=== PATIENT | female | born 1945 | race Caucasian/White ===

== ENCOUNTER → 2017-08-28 | Outpatient (CLI) | payer OTHER ==
[~2017-08-28] MED LIST: ASPI81TA28 PO; ATOR-22 PO; ATV/1 PO; CALC600T9 PO; ESCI1TAB10 PO; FOLI1TAB7 PO; HYDR-5688 PO; LISI-725 PO; PRED-301 PO; ZNTT/150 PO; ZOLP5TAB PO
[2017-08-28 18:08] LABS: ALT/SGPT 59 U/L (12-78); AST/SGOT 67 U/L (15-37); C-REACTIVE PROTEIN 1.35 mg/dl (0-0.29); CREATININE 0.81 mg/dl (0.60-1.20)
[2017-08-28 18:09] LABS: ALKALINE PHOSPHATASE 118 U/L (45-117)
[2017-08-28 19:31] LABS: HEMATOCRIT 36.2 % (37-47); MEAN CELL VOLUME 97.1 fL (80-100); MEAN CORPUSCULAR HEMOGLOBIN 32.2 pg (25-34); MEAN CORPUSCULAR HGB CONC 33.1 g/dl (32-36); RED BLOOD COUNT 3.73 M/uL (4.2-5.4); WHITE BLOOD COUNT 5.78 K/uL (4.8-10.8)
[2017-08-28 19:32] LABS: BASO % 0.7 %; BASO ABS # 0.04 K/uL (0-0.2); COMPLETE YES; EOS % 5.5 %; IG% 0.5 %; LYMPH ABS # 1.62 K/uL (1.2-3.4); MONO % 7.8 %; NEUT % 57.5 %
== END ==
LOC: C.LABMFLN 13:32
PROVIDERS: ATTEND Internal Medicine
DX: M05.79 Rheumatoid arthritis with rheumatoid factor of multiple sites without organ or systems involvement (principal)

== ENCOUNTER → 2018-03-06 | Outpatient (CLI) | payer OTHER ==
[~2018-03-06] MED LIST changes: -FOLI1TAB7 PO; +FOLI1TAB8 PO; +RANI150T85 PO; -ZNTT/150 PO
[2018-03-06 17:48] LABS: BASO % 0.3 %; BASO ABS # 0.02 K/uL (0-0.2); EOS % 0.8 %; EOS ABS # 0.05 K/uL (0-0.5); HEMOGLOBIN 11.5 g/dL (12.0-16.0); IG# 0.02 K/uL (0.00-0.02); LYMPH % 13.6 %; LYMPH ABS # 0.88 K/uL (1.2-3.4); MEAN CELL VOLUME 99.4 fL (80-100); MEAN CORPUSCULAR HEMOGLOBIN 33.6 pg (25-34); MEAN CORPUSCULAR HGB CONC 33.8 g/dl (32-36); MEAN PLATELET VOLUME 9.1 fL (7.4-10.4); MONO % 1.9 %; MONO ABS # 0.12 K/uL (0.11-0.59); NEUT % 83.1 %; NEUT ABS # 5.39 K/uL (1.4-6.5); PLATELET COUNT 213 K/uL (130-400); RED CELL DISTRIBUTION WIDTH CV 16.6 % (11.5-14.5); RED CELL DISTRIBUTION WIDTH SD 58.8 fL (36.4-46.3); WHITE BLOOD COUNT 6.48 K/uL (4.8-10.8)
== END | disposition home or self-care (01) ==
LOC: C.LABMFLN 15:54
PROVIDERS: ATTEND Family Medicine
DX: R51 Headache (principal)

== ENCOUNTER 2020-10-24 13:08 | Inpatient (IN) ==
--- NOTE | 2020-10-24 13:38 | Emergency Department Note ---
Impression & Plan COVID-19, AMS (altered mental status), Acute hypokalemia, Ambulatory dysfunction ED Provider Note NAME: JAMEY KIMBALL AGE: 74 SEX: F : 1945 ARRIVES VIA: Walk-In INFORMANT: Patient ED PROVIDER(S): Jak Johns DO CHIEF COMPLAINT: Confusion HPI: Patient is a 74-year-old female who tested positive for harding virus this past Saturday. She has had a cough as well as fevers. She does have a history of dementia but daughter brought her in notes that her confusion has been worse and she has been unable to ambulate without assistance for the past couple days. She denies any headaches or change in vision. No chest pain or shortness of breath. No belly pain. She denies any nausea, vomiting or diarrhea. No dysuria, urgency or frequency. No other exacerbating or remitting factors. ROS: See above HPI for pertinent positives & negatives. A total of 10 systems reviewed and were otherwise negative. PAST MEDICAL HISTORY:See Below PAST SURGICAL HISTORY:See Below FAMILY HISTORY:See Below SOCIAL HISTORY:See Below HOME MEDICATIONS:See Below ALLERGIES:See Below VITALS:See Below PHYSICAL EXAMINATION: GENERAL: Sitting up in bed, alert, well appearing, well nourished, no distress, non-toxic EYE EXAM: normal conjunctiva. PERRL and EOM's intact. OROPHARYNX: no exudate, no erythema, lips, buccal mucosa, and tongue normal and mucous membranes are moist NECK: supple, no nuchal rigidity, no adenopathy, non-tender LUNGS: Clear to auscultation. Normal chest wall mechanics HEART: no murmurs, S1 normal and S2 normal ABDOMEN: abdomen soft, non-tender, normo-active bowel sounds, no masses, no rebound or guarding. UPPER EXTREMITIES: upper extremities are grossly normal. LOWER EXTREMITIES: No pitting edema. NEURO EXAM: Oriented to person, place but not month or where she lives, cranial nerves II-XII intact, normal speech, no weakness of arms, no weakness of legs. No drift. Finger to nose intact. Gross sensation intact. MEDICAL DECISION MAKING: Patient is a 74-year-old female who presents the ER for confusion, trouble walking and Covid positive. IV was established blood work was obtained. She has had persistent fevers at home. He has been diagnosed with dementia but family notes that has been worse over the past couple days. Labs show a mild leukopenia 4.6 thousand. No significant anemia. BMP with mild hypokalemia at 2.6. She is given oral potassium. LFTs bilirubin and magnesium was unremarkable. Troponin was negative. Lipase unremarkable. UA without signs of infection. Chest x-ray is a likely pneumonitis. Patient was given IV fluids. Held on antibiotics as the pneumonitis was very mild and she was not hypoxic at this time. Will defer to the admission team. Patient and family including daughter and were updated via telephone. This with the hospitalist for further evaluation Triage Nursing notes reviewed. Prior medical records reviewed Vital Signs: reviewed and remarkable for hypertensive, overall and tachycardic Differential diagnosis: Differential diagnoses includes but is not limited to toxic, metabolic, infect ious, traumatic, cardiac, neurologic, hematologic, psychiatric and inflammatory etiologies. ER treatment provided: See below Diagnostics interpreted by me: ECG: Sinus tachycardia rate of 108 Left axis Right bundle branch block ST depressions in V1 through V3 QTC [address] wave changes from previous Cardiac Monitoring: An order was placed for continuous cardiac monitoring. The monitor shows a rate of 90 with sinus rhythm. Laboratory studies: As stated above and show below. Imaging studies: Portable AP upright 1 view of the chest as discussed above in the MDM with mild pneumonitis Consultation(s): D/w Dr. Abdirahman Robles for further evaluation ED COURSE: Procedures: none Critical Care: None Past Med/Surg History Medical History (Updated 10/24/20 @ 17:26 by Jak Johns DO) Acid reflux disease Balance problems Current chronic use of systemic steroids Degenerative cervical spinal stenosis Depression Gait abnormality Generalized anxiety disorder High risk medication use Hyperlipidemia Hypertension Insomnia Lumbar radiculopathy Osteoporosis Rheumatoid arthritis TMJ arthritis Surgical History H/O colonoscopy H/O esophagogastroduodenoscopy History of ankle surgery bilateral History of appendectomy History of tubal ligation Hx of cholecystectomy Hx of tonsillectomy Status post hip surgery March 2019-right Family History Father Diabetes Mother Stroke syndrome Uterine cancer Brother Malignant neoplasm of body of pancreas Malignant Pancreatic Neoplasm Colorectal cancer Sister Malignant neoplasm of body of pancreas Malignant Pancreatic Neoplasm Myocardial infarction Denies family history of Ovarian cancer Prostate cancer Breast cancer Social History Smoking Status: Never smoker Tobacco Type: Cigarettes Age Started Using Tobacco: 14; Age Quit Using Tobacco: 18; packs per day: 0.5; Second Hand Exposure: Yes; Hx Alcohol Use: No Hx Substance Use: Yes Preferred Language: [place] Communication Ability: Effective Visual Impairment: No Limitations Hearing Ability: Hard of Hearing Vacuum Filter Operator Required: No Beliefs That Will Affect Care: None marital status: Current Living Situation: Spouse current occupational status: retired 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 Feels Safe at Home: Yes Childhood Exposure to Second-Hand Smoke: Yes caffeine: Yes (tea) Dental Care, Regularly: Yes Physical Activity Frequency: 1-2 Times per Week Physical Activity Frequency Comment: gardening Seatbelt Use: never Sunscreen Use: No Do you think of yourself as: straight/heterosexual Allergies Allergies Allergy/AdvReac Type Severity Reaction Status Date / Time No Known Drug Allergies Allergy Verified 10/24/20 15:18 Home Meds Home Medications Medication Instructions Recorded Confirmed sulfasalazine 500 mg tablet 1 gm PO DAILY tab 07/21/20 10/24/20 methotrexate sodium 20 mg PO WK 10/24/20 10/24/20 Previous Rx's Medication Instructions Recorded aspirin 81 mg tablet,delayed 81 mg PO DAILY #30 tab 05/29/19 release folic acid 1 mg tablet 3 mg PO DAILY #90 tab 06/01/19 prednisone 5 mg tablet 5 mg PO DAILY #90 tab 06/09/19 calcium carbonate-vitamin D3 250 1 tab PO DAILY #30 tab 03/21/20 mg-125 unit tablet denosumab 60 mg/mL subcutaneous 60 mg SQ .COMPLEX #1 ml 03/21/20 syringe escitalopram oxalate 20 mg tablet 20 mg PO DAILY #90 tab 04/14/20 atorvastatin 20 mg tablet 20 mg PO DAILY #90 tab 07/04/20 gabapentin 100 mg capsule 100 mg PO TID #270 cap 07/04/20 omeprazole 20 mg capsule,delayed 20 mg PO DAILY #90 cap 07/04/20 release temazepam 15 mg capsule 15 mg PO HS PRN #30 cap 09/23/20 oxycodone 5 mg tablet 5 mg PO BID PRN #60 tab 10/03/20 amlodipine 5 mg tablet 5 mg PO DAILY #90 tab 10/12/20 lorazepam 0.5 mg tablet 0.5 mg PO BID PRN #60 tab 10/16/20 Results & Data (ED) Vital Signs Vital Signs - 24 hr 10/24/20 13:22 10/24/20 14:07 10/24/20 14:30 Temperature 37.6 C H Temperature Source Oral Pulse Rate 108 H 89 Pulse Rate [Apical] Respiratory Rate 24 22 Respiratory Effort / Characteristics Non-Labored Spontaneous Respiratory Depth Normal Respiratory Pattern Regular Blood Pressure 160/115 H 158/88 H Blood Pressure [Left Arm] Blood Pressure Mean 130 113 Blood Pressure Mean [Left Arm] Blood Pressure Position [Left Arm] Pulse Oximetry 95 96 96 Oxygen Delivery Method Room Air Room Air Sepsis Recent Fever Within 48 Hours Yes Sepsis New/Unexplained Change in Mental Status N/A Sepsis Action Taken by Nursing Physician Notified 10/24/20 15:00 10/24/20 15:36 10/24/20 16:13 Temperature 38.7 C H Temperature Source Oral Pulse Rate 86 88 Pulse Rate [Apical] 85 Respiratory Rate 20 18 21 Respiratory Effort / Characteristics Non-Labored Spontaneous Respiratory Depth Normal Respiratory Pattern Regular Blood Pressure 174/84 H 176/90 H Blood Pressure [Left Arm] 167/88 H Blood Pressure Mean 128 119 Blood Pressure Mean [Left Arm] 114 Blood Pressure Position [Left Arm] Sitting Pulse Oximetry 97 99 96 Oxygen Delivery Method Room Air Sepsis Recent Fever Within 48 Hours Sepsis New/Unexplained Change in Mental Status Sepsis Action Taken by Nursing 10/24/20 16:30 Temperature Temperature Source Pulse Rate 90 Pulse Rate [Apical] Respiratory Rate 20 Respiratory Effort / Characteristics Respiratory Depth Respiratory Pattern Blood Pressure 171/97 H Blood Pressure [Left Arm] Blood Pressure Mean 115 Blood Pressure Mean [Left Arm] Blood Pressure Position [Left Arm] Pulse Oximetry 94 Oxygen Delivery Method Sepsis Recent Fever Within 48 Hours Sepsis New/Unexplained Change in Mental Status Sepsis Action Taken by Nursing Laboratory Data Result diagrams: 10/24/20 13:45 10/24/20 13:45 Lab Results 10/24/20 10/24/20 10/24/20 Range/Units 13:45 13:45 13:45 WBC 4.66 L (4.8-10.8) K/uL RBC 3.70 L (4.2-5.4) M/uL Hgb 12.1 (12.0-16.0) g/dL Hct 36.2 L (37-47) % MCV 97.8 (80-100) fL MCH 32.7 (25-34) pg MCHC 33.4 (32-36) g/dL RDW Std Deviation 57.2 H (36.4-46.3) fL RDW Coeff of [place] 16.3 H (11.5-14.5) % Plt Count 153 (130-400) K/uL MPV 9.9 (7.4-10.4) fL Immature Gran % (Auto) 2.4 % Neut % (Auto) 59.7 % Lymph % (Auto) 25.3 % [place] % (Auto) 10.7 % Eos % (Auto) 1.3 % Baso % (Auto) 0.6 % Neut # (Auto) 2.78 (1.4-6.5) K/uL Lymph # (Auto) 1.18 L (1.2-3.4) K/uL [place] # (Auto) 0.50 (0.11-0.59) K/uL Eos # (Auto) 0.06 (0-0.5) K/uL Baso # (Auto) 0.03 (0-0.2) K/uL Immature Gran # (Auto) 0.11 H (0.00-0.02) K/uL Sodium 138 (136-145) mmol/L Potassium 2.6 L (3.5-5.1) mmol/L Chloride 105 (98-107) mmol/L Carbon Dioxide 25 (21-32) mmol/L Anion Gap 8.0 (3-11) BUN 18 (7-18) mg/dl Creatinine 0.89 (0.6-1.2) mg/dl Est Cr Clr Drug Dosing 50.3 ml/min Est GFR ( Amer) 73.0 Est GFR (Non-Af Amer) 63.0 BUN/Creatinine Ratio 19.7 (10-20) Glucose 100 H (70-99) mg/dl Calcium 9.2 (8.5-10.1) mg/dl Magnesium 1.8 (1.8-2.4) mg/dl Total Bilirubin 0.5 (0.2-1) mg/dl AST 30 (15-37) U/L ALT 20 (12-78) U/L Alkaline Phosphatase 97 (45-117) U/L Troponin I < 0.015 (0-0.045) ng/ml Total Protein 6.8 (6.4-8.2) gm/dl Albumin 3.3 L (3.4-5.0) gm/dl Globulin 3.5 (2.5-4.0) gm/dl Albumin/Globulin Ratio 1.0 (0.9-2) Lipase 73 (73-393) U/L Urine Color Urine Appearance (Clear) Urine pH (4.5-7.5) Ur Specific [place] (1.000-1.030) Urine Protein (Negative) Urine Glucose (UA) (Negative) Urine Ketones (Negative) Urine Blood (Negative) Urine Nitrite (Negative) Urine Bilirubin (Negative) Urine Urobilinogen (Negative) Ur Leukocyte Esterase (Negative) Urine WBC (Auto) (0-5) /hpf Urine RBC (Auto) (0-4) /hpf U Hyaline Cast (Auto) (0-5) /lpf U Epithel Cells (Auto) (0-5) /lpf Urine Bacteria (Auto) (Negative) 10/24/20 Range/Units 14:00 WBC (4.8-10.8) K/uL RBC (4.2-5.4) M/uL Hgb (12.0-16.0) g/dL Hct (37-47) % MCV (80-100) fL MCH (25-34) pg MCHC (32-36) g/dL RDW Std Deviation (36.4-46.3) fL RDW Coeff of [place] (11.5-14.5) % Plt Count (130-400) K/uL MPV (7.4-10.4) fL Immature Gran % (Auto) % Neut % (Auto) % Lymph % (Auto) % [place] % (Auto) % Eos % (Auto) % Baso % (Auto) % Neut # (Auto) (1.4-6.5) K/uL Lymph # (Auto) (1.2-3.4) K/uL [place] # (Auto) (0.11-0.59) K/uL Eos # (Auto) (0-0.5) K/uL Baso # (Auto) (0-0.2) K/uL Immature Gran # (Auto) (0.00-0.02) K/uL Sodium (136-145) mmol/L Potassium (3.5-5.1) mmol/L Chloride (98-107) mmol/L Carbon Dioxide (21-32) mmol/L Anion Gap (3-11) BUN (7-18) mg/dl Creatinine (0.6-1.2) mg/dl Est Cr Clr Drug Dosing ml/min Est GFR ( Amer) Est GFR (Non-Af Amer) BUN/Creatinine Ratio (10-20) Glucose (70-99) mg/dl Calcium (8.5-10.1) mg/dl Magnesium (1.8-2.4) mg/dl Total Bilirubin (0.2-1) mg/dl AST (15-37) U/L ALT (12-78) U/L Alkaline Phosphatase (45-117) U/L Troponin I (0-0.045) ng/ml Total Protein (6.4-8.2) gm/dl Albumin (3.4-5.0) gm/dl Globulin (2.5-4.0) gm/dl Albumin/Globulin Ratio (0.9-2) Lipase (73-393) U/L Urine Color Yellow Urine Appearance Clear (Clear) Urine pH 7.0 (4.5-7.5) Ur Specific [place] 1.021 (1.000-1.030) Urine Protein Trace H (Negative) Urine Glucose (UA) Negative (Negative) Urine Ketones Trace H (Negative) Urine Blood Trace H (Negative) Urine Nitrite Negative (Negative) Urine Bilirubin Negative (Negative) Urine Urobilinogen Positive H (Negative) Ur Leukocyte Esterase Negative (Negative) Urine WBC (Auto) 1-5 (0-5) /hpf Urine RBC (Auto) 5-10 H (0-4) /hpf U Hyaline Cast (Auto) 1-5 (0-5) /lpf U Epithel Cells (Auto) 10-20 H (0-5) /lpf Urine Bacteria (Auto) Negative (Negative) Administered Medications Discontinued Medications Sodium Chloride (Nss 1000ml) 1,000 mls @ 999 mls/hr IV .[id number] JEANIE Stop: 10/24/20 14:45 Last Infusion: 10/24/20 15:34 Dose: 0 mls/hr Documented by: [id number] Admin: 10/24/20 14:32 Dose: 999 mls/hr Documented by: [id number] Ibuprofen (Ibuprofen 200 Mg Tab) 400 mg PO NOW STA Stop: 10/24/20 15:45 Last Admin: 10/24/20 16:11 Dose: 400 mg Documented by: [id number] Potassium Chloride (Potassium Chloride 10 Meq Tabcr) 40 meq PO NOW STA Stop: 10/24/20 14:57 Last Admin: 10/24/20 15:34 Dose: 40 meq Documented by: [id number] Discharge Plan Visit Data Chief Complaint: Illness Stated Complaint: COVID ED Provider: Jak Johns Discharge Problem: COVID-19, AMS (altered mental status), Acute hypokalemia, Ambulatory dysfunction Forms Stand Alone Forms: [facility] [place] [employer] Prescriptions Prescriptions: No Action aspirin 81 mg tablet,delayed release (DR/EC) 81 mg PO DAILY Qty: 30 RF: 2 prednisone 5 mg tablet 5 mg PO DAILY Qty: 90 RF: 0 denosumab 60 mg/mL syringe 60 mg SQ .COMPLEX Qty: 1 RF: 0 calcium carbonate-vitamin D3 250-125 mg-unit tablet 1 tab PO DAILY Qty: 30 RF: 0 escitalopram oxalate 20 mg tablet 20 mg PO DAILY Qty: 90 RF: 3 atorvastatin 20 mg tablet 20 mg PO DAILY Qty: 90 RF: 3 gabapentin 100 mg capsule 100 mg PO TID Qty: 270 RF: 1 omeprazole 20 mg capsule,delayed release(DR/EC) 20 mg PO DAILY Qty: 90 RF: 3 temazepam [Restoril] 15 mg capsule 15 mg PO HS PRN (Reason: sleep) Qty: 30 RF: 0 oxycodone 5 mg tablet 5 mg PO BID PRN (Reason: pain) Qty: 60 RF: 0 amlodipine 5 mg tablet 5 mg PO DAILY Qty: 90 RF: 3 lorazepam 0.5 mg tablet 0.5 mg PO BID PRN (Reason: anxiety) Qty: 60 RF: 0 sulfasalazine [Azulfidine] 500 mg tablet 1 gm PO DAILY RF: 0 folic acid 1 mg tablet 3 mg PO DAILY Qty: 90 RF: 3 methotrexate sodium 2.5 mg tablet 20 mg PO WK RF: 0 Discharge Problem: AMS (altered mental status) Qualifiers: Altered mental status type: unspecified Qualified Code(s): R41.82 - Altered mental status, unspecified
[2020-10-24] MEDS ORDERED: SODIUM CHLORIDE 0.9% 1000ML 1,000 ML IV SCH (13:45)
--- NOTE | 2020-10-24 14:09 | XRay Report ---
XR chest 1V portable HISTORY: 74 years-old Female sob acute shortness of breath COMPARISON: Chest radiograph 04/30/2016 TECHNIQUE: Portable AP view of the chest FINDINGS: Cardiomediastinal and hilar silhouettes are within normal limits. Subtle ill-defined bibasilar opacit ies. No pneumothorax, pleural effusion or overt pulmonary edema. Mild background interstitial coarsen ing. Unchanged moderate hemidiaphragmatic elevation. Degenerative changes of the shoulders and spine. Partially imaged cervical spinal fusion hardware. Cholecystectomy clips. IMPRESSION: Subtle ill-defined bibasilar opacities are suspicious for a nonspecific infectious or inf lammatory pneumonitis. ACT 112: Negative or not required by law. The above report was generated using voice recognition software. It may contain grammatical, syntax o r spelling errors. Electronically signed by: Clay Cleary M.D. 10/24/2020 2:07 PM
[2020-10-24 14:10] LABS: Basophils # (auto) 0.03 K/uL (0-0.2); Basophils % (auto) 0.6 %; Eosinophils # (auto) 0.06 K/uL (0-0.5); Eosinophils % (auto) 1.3 %; Hematocrit (blood only) 36.2 % (37-47); Hemoglobin 12.1 g/dL (12.0-16.0); Immature Granulocytes # (auto) 0.11 K/uL (0.00-0.02); Immature Granulocytes % (auto) 2.4 %; Lymphocytes # (auto) 1.18 K/uL (1.2-3.4); Lymphocytes % (auto) 25.3 %; Mean Corpuscular Hemoglobin 32.7 pg (25-34); Mean Corpuscular Hgb Conc 33.4 g/dL (32-36); Mean Corpuscular Volume 97.8 fL (80-100); Mean Platelet Volume 9.9 fL (7.4-10.4); Monocytes % (auto) 10.7 %; Neutrophils # (auto) 2.78 K/uL (1.4-6.5); Neutrophils % (auto) 59.7 %; Platelet Count 153 K/uL (130-400); RDW Coefficient of Variation 16.3 % (11.5-14.5); RDW Standard Deviation 57.2 fL (36.4-46.3); White Blood Count 4.66 K/uL (4.8-10.8)
[2020-10-24 14:26] LABS: Alanine Aminotransferase 20 U/L (12-78); Albumin Level 3.3 gm/dl (3.4-5.0); Aspartate Aminotransferase 30 U/L (15-37); BUN Creatinine Ratio 19.7 (10-20); Blood Urea Nitrogen 18 mg/dl (7-18); Calcium 9.2 mg/dl (8.5-10.1); Carbon Dioxide 25 mmol/L (21-32); Chloride 105 mmol/L (98-107); Creatinine Clr Calc Pharmacy 50.3 ml/min; Glucose 100 mg/dl (70-99); Lipase 73 U/L (73-393); Potassium 2.6 mmol/L (3.5-5.1); Sodium 138 mmol/L (136-145)
[2020-10-24 14:30] LABS: Alkaline Phosphatase 97 U/L (45-117); Bilirubin,Total 0.5 mg/dl (0.2-1); Globulin 3.5 gm/dl (2.5-4.0); Total Protein 6.8 gm/dl (6.4-8.2); Troponin I < 0.015 ng/ml (0-0.045)
[2020-10-24 14:32] LABS: Appearance Urine Clear (Clear); Bacteria Urine Automated Negative (Negative); Bilirubin Urine Negative (Negative); Blood Urine Trace (Negative); Color Urine Yellow; Glucose Urine UA Negative (Negative); Ketones Urine Trace (Negative); Leukocyte Esterase Urine Negative (Negative); Nitrite Urine Negative (Negative); Protein Urine Trace (Negative); Specific Gravity Urine 1.021 (1.000-1.030); Urobilinogen Urine Positive (Negative)
[2020-10-24] MEDS ORDERED: POTASSIUM CHLORIDE 10 MEQ TABCR PO STA (14:56)
[2020-10-24] MEDS ORDERED: IBUPROFEN 200 MG TAB PO STA (15:44)
--- NOTE | 2020-10-24 15:56 | History & Physical Report ---
Date of Service October 24, 2020 Assessment & Plan (1) Pneumonia due to COVID-19 virus: Diagnosed in the outpatient setting on 10/18/20. Had been ill for about 1 week prior to that. Fortunately she is not hypoxic at this time. Will defer on remdesivir or convalescent plasma. Is on chronic prednisone for RA. In light of steroid dependency and physical stress of illness she is deserving, however, of stress-dose steroids. Thus, hold PO prednisone and give IV dexamethasone 6mg daily to start. Check d-dimer in am. No evidence of complicating bacterial process. Check procalcitonin now. Supportive care, IVF, etc. (2) Metabolic encephalopathy: 2nd to COVID-19 infection in setting of what sounds like a chronic dementia/cognitive impairment at baseline. Is also on multiple sedatives/benzos that could contribute to confusion (restoril, ativan, etc). HOLD benzos. HOLD oxycodone. Risperdal 0.5mg q8h prn severe agitation/delirium. (3) Hypokalemia: Replace IV and PO. Check mag level. BMP in am. Likely 2nd to poor oral intake and recent diarrhea from COVID-19. (4) Hyperlipidemia: Continue statin. (5) Hypertension: Continue amlodipine. (6) Rheumatoid arthritis: Steroid-dependent -- prednisone 5mg/day. Also on Mtx 20mg qweek and sulfasalazine 1000mg daily. Hold Mtx. Cont sulfasalazine. Stress-dose steroids w/ decadron in carmela of prednisone. (7) Current chronic use of systemic steroids: see above (8) Right arm fracture: Patient with recent surgery/ORIF at [facility]. Surgery date uncertain. Will attempt to get records. Daughter reports that "sutures" need to be removed soon. Again the arm is in a splint. Obtain records from [facility]. (9) DVT prophylaxis: in light of COVID status and increased risk of VTE will utilize lovenox 30mg BID will need PT/OT IVF - NS with KCL History of Present Illness Primary Care Provider: Whitney Cardona MD The HPI was gathered via phone with daughter Doreen as patient was quite confused during the bedside visit and could provide limited history or ROS. 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 She was brought to hospital today via EMS for worsening confusion and increased difficulty ambulating at home in the setting of COVID-19 infection. Per daughter the patient was having difficulty placing feet in appropriate position for ambulating this morning. Patient was diagnosed with COVID-19 on October 18 after having symptoms for about 1 week prior. Patient has been having increased periods of confusion, difficulty speaking (answering only yes to all questions and phrases), and abnormal behavior at night (taking clothes off and unaware of surroundings). Patient recently had an MRI done at [facility] which reportedly showed early "dementia" per the daughter. The patient was also treated at [facility] for repair and plating of her right arm fracture after suffering a fall at home. The patient was to go back to have sutures removed this week, but did not go secondary to COVID. Daughter also has noted the patient has been increasingly incontinent of urine and has also increased toileting at night. During my bedside visit patient complains of cough, headache, poor appetite, and simply feeling unwell. She could not tell me what holiday we had just celebrated (Thanksgiving), could not name the month or day, and wasn't sure where we were. ("that place" she stated). Doreen's cell phone: . Allergies Allergy/AdvReac Type Severity Reaction Status Date / Time No Known Drug Allergies Allergy Verified 10/24/20 15:18 Home Medications Medication Instructions Recorded Confirmed Type aspirin 81 mg tablet,delayed 81 mg PO DAILY #30 tab 05/29/19 10/24/20 Rx release folic acid 1 mg tablet 3 mg PO DAILY #90 tab 06/01/19 10/24/20 Rx prednisone 5 mg tablet 5 mg PO DAILY #90 tab 06/09/19 10/24/20 Rx calcium carbonate-vitamin D3 250 1 tab PO DAILY #30 tab 03/21/20 10/24/20 Rx mg-125 unit tablet denosumab 60 mg/mL subcutaneous 60 mg SQ .COMPLEX #1 ml 03/21/20 10/24/20 Rx syringe escitalopram oxalate 20 mg tablet 20 mg PO DAILY #90 tab 04/14/20 10/24/20 Rx atorvastatin 20 mg tablet 20 mg PO DAILY #90 tab 07/04/20 10/24/20 Rx gabapentin 100 mg capsule 100 mg PO TID #270 cap 07/04/20 10/24/20 Rx omeprazole 20 mg capsule,delayed 20 mg PO DAILY #90 cap 07/04/20 10/24/20 Rx release sulfasalazine 500 mg tablet 1 gm PO DAILY tab 07/21/20 10/24/20 History temazepam 15 mg capsule 15 mg PO HS PRN #30 cap 09/23/20 10/24/20 Rx oxycodone 5 mg tablet 5 mg PO BID PRN #60 tab 10/03/20 10/24/20 Rx amlodipine 5 mg tablet 5 mg PO DAILY #90 tab 10/12/20 10/24/20 Rx lorazepam 0.5 mg tablet 0.5 mg PO BID PRN #60 tab 10/16/20 10/24/20 Rx methotrexate sodium 20 mg PO WK 10/24/20 10/24/20 History Past Med/Surg History Medical History (Updated 10/25/20 @ 05:38 by Abdirahman Layne) Acid reflux disease Balance problems Current chronic use of systemic steroids Degenerative cervical spinal stenosis Dementia Depression Gait abnormality Generalized anxiety disorder High risk medication use Hyperlipidemia Hypertension Insomnia Lumbar radiculopathy Osteoporosis Rheumatoid arthritis TMJ arthritis Surgical History H/O colonoscopy H/O esophagogastroduodenoscopy History of ankle surgery bilateral History of appendectomy History of tubal ligation Hx of cholecystectomy Hx of tonsillectomy Status post hip surgery March 2019-right Family History Father Diabetes Mother Stroke syndrome Uterine cancer Brother Malignant neoplasm of body of pancreas Malignant Pancreatic Neoplasm Colorectal cancer Sister Malignant neoplasm of body of pancreas Malignant Pancreatic Neoplasm Myocardial infarction Denies family history of Ovarian cancer Prostate cancer Breast cancer Social History Smoking Status: Former smoker Tobacco Type: Cigarettes Age Started Using Tobacco: 14; Age Quit Using Tobacco: 18; packs per day: 0.5; Second Hand Exposure: No; Do You Dip or Chew Tobacco: No; Tobacco Cessation Education Requested by Patient: No Hx Alcohol Use: No Hx Substance Use: No Preferred Language: Kyrgyz Communication Ability: Effective Visual Impairment: No Limitations Hearing Ability: Hard of Hearing Director Trust Required: No Beliefs That Will Affect Care: None marital status: Current Living Situation: Spouse current occupational status: retired 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 Other Information That Helps Us Care for You: No Feels Safe at Home: Yes Safety Concerns: Feels Safe At This Time Childhood Exposure to Second-Hand Smoke: Yes caffeine: Yes (tea) Dental Care, Regularly: Yes Physical Activity Frequency: 1-2 Times per Week Physical Activity Frequency Comment: gardening Seatbelt Use: never Sunscreen Use: No Do you think of yourself as: straight/heterosexual Assistive Devices: Denture - Upper and Glasses Review of Systems Review of Systems: Unobtainable due to cognitive status Physical Exam Constitutional: + ill appearing, + altered mental status and + frail appeari ng; no acute distress Eyes: PERRL ENMT: Mouth: + dry oral mucous membranes Neck: trachea midline, no thyromegaly Respiratory: Auscultation: + crackles (Right base, about 1/[address] back; minimal left base) Cardiovascular: Rate/Rhythm: regular rate and regular rhythm Heart Sounds: normal S1 and normal S2; no murmur Vessels: posterior tibial pulses present and dorsalis pedis pulses present; no JVD Extremities: no edema Musculoskeletal: right hand/wrist/forearm in splint; cap refill right fingers <2 seconds; handgrip 5/5 on right Skin: no rashes, warm and dry Neurologic: moves all extremities; no focal motor deficits Psychiatric: Orientation: alert and oriented to person; + not oriented to place and + not oriented to time Lymphatic: no cervical lymphadenopathy Results & Data Results & Data ([facility]) Vital Signs (Past 12 Hours) Vital Signs Temp Pulse Pulse Resp BP BP Pulse Ox 10/24/20 15:36 38.7 C H 85 18 167/88 H 99 10/24/20 15:00 86 20 174/84 H 97 10/24/20 14:30 89 22 158/88 H 96 10/24/20 14:07 96 10/24/20 13:22 37.6 C H 108 H 24 160/115 H 95 Laboratory Results Laboratory Results - last 24 hr 10/24/20 10/24/20 10/24/20 13:45 13:45 13:45 WBC 4.66 L RBC 3.70 L Hgb 12.1 Hct 36.2 L MCV 97.8 MCH 32.7 MCHC 33.4 RDW Std Deviation 57.2 H RDW Coeff of [place] 16.3 H Plt Count 153 MPV 9.9 Immature Gran % (Auto) 2.4 Neut % (Auto) 59.7 Lymph % (Auto) 25.3 [place] % (Auto) 10.7 Eos % (Auto) 1.3 Baso % (Auto) 0.6 Neut # (Auto) 2.78 Lymph # (Auto) 1.18 L [place] # (Auto) 0.50 Eos # (Auto) 0.06 Baso # (Auto) 0.03 Immature Gran # (Auto) 0.11 H Sodium 138 Potassium 2.6 L Chloride 105 Carbon Dioxide 25 Anion Gap 8.0 BUN 18 Creatinine 0.89 Est Cr Clr Drug Dosing 50.3 Est GFR ( Amer) 73.0 Est GFR (Non-Af Amer) 63.0 BUN/Creatinine Ratio 19.7 Glucose 100 H Calcium 9.2 Magnesium 1.8 Total Bilirubin 0.5 AST 30 ALT 20 Alkaline Phosphatase 97 Total Creatine Kinase Troponin I < 0.015 Total Protein 6.8 Albumin 3.3 L Globulin 3.5 Albumin/Globulin Ratio 1.0 Lipase 73 Procalcitonin Urine Color Urine Appearance Urine pH Ur Specific [place] Urine Protein Urine Glucose (UA) Urine Ketones Urine Blood Urine Nitrite Urine Bilirubin Urine Urobilinogen Ur Leukocyte Esterase Urine WBC (Auto) Urine RBC (Auto) U Hyaline Cast (Auto) U Epithel Cells (Auto) Urine Bacteria (Auto) 10/24/20 10/24/20 10/24/20 13:45 14:00 20:09 WBC RBC Hgb Hct MCV MCH MCHC RDW Std Deviation RDW Coeff of [place] Plt Count MPV Immature Gran % (Auto) Neut % (Auto) Lymph % (Auto) [place] % (Auto) Eos % (Auto) Baso % (Auto) Neut # (Auto) Lymph # (Auto) [place] # (Auto) Eos # (Auto) Baso # (Auto) Immature Gran # (Auto) Sodium Potassium Chloride Carbon Dioxide Anion Gap BUN Creatinine Est Cr Clr Drug Dosing Est GFR ( Amer) Est GFR (Non-Af Amer) BUN/Creatinine Ratio Glucose Calcium Magnesium Total Bilirubin AST ALT Alkaline Phosphatase Total Creatine Kinase 54 Troponin I Total Protein Albumin Globulin Albumin/Globulin Ratio Lipase Procalcitonin < 0.05 Urine Color Yellow Urine Appearance Clear Urine pH 7.0 Ur Specific [place] 1.021 Urine Protein Trace H Urine Glucose (UA) Negative Urine Ketones Trace H Urine Blood Trace H Urine Nitrite Negative Urine Bilirubin Negative Urine Urobilinogen Positive H Ur Leukocyte Esterase Negative Urine WBC (Auto) 1-5 Urine RBC (Auto) 5-10 H U Hyaline Cast (Auto) 1-5 U Epithel Cells (Auto) 10-20 H Urine Bacteria (Auto) Negative Diagnostic Findings 1. cxr: IMPRESSION: Subtle ill-defined bibasilar opacities are suspicious for a nonspecific infectious or inflammatory pneumonitis. 2. EKG: sinus tach, RBBB, nonspecific ST changes anteroseptal leads Code Status & VTE Plan Code Status full code, per pt's daughter VTE Prophylaxis Plan VTE Prophylaxis will be ordered: Yes PG Care Time/CCT Total # of Minutes Spent Total Time Spent with Patient: Total time spent is greater than 50% in coordination of care (as documented) at patient's floor/unit and/or counseling patient: Coding Level of Care Code 84357 Initial Inpt Care Lvl 2 Diagnoses Pneumonia due to COVID-19 virus U07.1; J12.89 Metabolic encephalopathy G93.41 Hypokalemia E87.6 Hyperlipidemia E78.2 Hyperlipidemia type: mixed hyperlipidemia Hypertension I10 Hypertension type: essential hypertension Rheumatoid arthritis M06.9 Rheumatoid arthritis location: unspecified site Rheumatoid factor presence: unspecified presence Current chronic use of systemic steroids Z79.52 Right arm fracture S42.301D Encounter type: subsequent encounter Fracture type: closed Fracture healing: with routine healing DVT prophylaxis Z29.9 (1) Rheumatoid arthritis Rheumatoid arthritis location: unspecified site Rheumatoid factor presence: unspecified presence Qualified Code(s): M06.9 - Rheumatoid arthritis, unspecified (2) Hyperlipidemia Hyperlipidemia type: mixed hyperlipidemia Qualified Code(s): E78.2 - Mixed hyperlipidemia (3) Hypertension Hypertension type: essential hypertension Qualified Code(s): I10 - Essential (primary) hypertension (4) Right arm fracture Encounter type: subsequent encounter Fracture type: closed Fracture healing: with routine healing Qualified Code(s): S42.301D - Unspecified fracture of shaft of humerus, right arm, subsequent encounter for fracture with routine healing
--- NOTE | 2020-10-24 16:27 | Electrocardiogram Report ---
Test Reason : Blood Pressure : / mmHG Vent. Rate : 108 BPM Atrial Rate : 108 BPM P-R Int : 178 ms QRS Dur : 126 ms QT Int : 368 ms P-R-T Axes : 003 -32 018 degrees QTc Int : 493 ms Sinus tachycardia Left axis deviation Right bundle branch block Abnormal ECG When compared with ECG of 30-APR-2016 14:40, Vent. rate has increased BY 45 BPM Non-specific change in ST segment in Anterior leads T wave inversion now evident in Anterior leads Confirmed by Armando Moreno ([id number]) on 10/24/2020 4:27:16 PM Referred By: Whitney Cardona Confirmed By:Jeff Moreno
[2020-10-24] MEDS: POTASSIUM CHLORIDE / WTR 10 MEQ/100 ML PLCT IV SCH ×2 (17:57→19:30)
[2020-10-24] MEDS ORDERED: ONDANSETRON INJ 2 MG/ML 2 ML VIAL IV PRN (20:33)
[2020-10-24] MEDS ORDERED: risperiDONE ODT 0.5 MG SOLTAB PO PRN (20:33)
[2020-10-24] MEDS ORDERED: ACETAMINOPHEN 325 MG TAB PO PRN (20:33)
[2020-10-24] MEDS: dexAMETHasone 6 MG in SYRINGE 0 ML IV SCH (21:50)
[2020-10-24] MEDS: ENOXAPARIN INJ 30 MG/0.3 ML SYR SQ SCH (21:50)
[2020-10-24] MEDS: NSS + 20MEQ KCL 20 MEQ/1,000 ML BAG IV SCH (21:50)
[2020-10-24] MEDS: GABAPENTIN 100 MG CAP PO SCH (21:51)
[2020-10-25] MEDS ORDERED: MELATONIN 3 MG TAB PO SCH (01:05)
[2020-10-25 07:11] LABS: Hematocrit (blood only) 32.4 % (37-47); Hemoglobin 10.8 g/dL (12.0-16.0); Mean Corpuscular Hemoglobin 32.5 pg (25-34); Mean Corpuscular Hgb Conc 33.3 g/dL (32-36); Mean Corpuscular Volume 97.6 fL (80-100); Mean Platelet Volume 9.6 fL (7.4-10.4); Platelet Count 146 K/uL (130-400); RDW Coefficient of Variation 16.3 % (11.5-14.5); RDW Standard Deviation 57.7 fL (36.4-46.3); Red Blood Count 3.32 M/uL (4.2-5.4)
[2020-10-25 07:14] LABS: D Dimer 660 ug/L FEU (0-500)
[2020-10-25 07:54] LABS: BUN Creatinine Ratio 24.8 (10-20); Calcium 8.5 mg/dl (8.5-10.1); Creatinine Clr Calc Pharmacy 84.5 ml/min; Est GFR (African American) 106.9; Est GFR (Non-African American) 92.2; Potassium 3.9 mmol/L (3.5-5.1)
[2020-10-25] MEDS: dexAMETHasone 6 MG in SYRINGE 0 ML IV SCH (07:57)
[2020-10-25] MEDS: GABAPENTIN 100 MG CAP PO SCH ×2 (07:59→12:26)
[2020-10-25] MEDS: ENOXAPARIN INJ 30 MG/0.3 ML SYR SQ SCH (08:07)
--- NOTE | 2020-10-25 08:33 | Hospitalist Progress Note ---
Date of Service October 25, 2020 Assessment & Plan (1) Pneumonia due to COVID-19 virus: Diagnosed in the outpatient setting on 10/18/20, ill for about 1 week prior to that. remains without hypoxia, does not qualify for remdesivir or convalescent plasma. Is on chronic prednisone for RA. will have decadron 6 mg elevated d-dimer may be inflammation not VTE No evidence of complicating bacterial process. normal procalcitonin. (2) Metabolic encephalopathy: 2nd to COVID-19 infection in setting of what sounds like a chronic dementia/cognitive impairment at baseline. an outpt takes multiple sedatives/benzos that could contribute to confusion will hold/stop restoril, ativan, oxycodone. continue Risperdal 0.5mg q8h prn severe agitation/delirium. (3) Hypokalemia: Replete Likely 2nd to poor oral intake and recent diarrhea from COVID-19. (4) Hyperlipidemia: Continue statin. (5) Hypertension: Continue amlodipine. (6) Rheumatoid arthritis: Steroid-dependent -- prednisone 5mg/day now on Decadron Also on Mtx 20mg qweek and sulfasalazine 1000mg daily. Hold Mtx. Cont sulfasalazine. Stress-dose steroids w/ decadron in carmela of prednisone. (7) Current chronic use of systemic steroids: see above (8) Right arm fracture: Patient with recent surgery/ORIF at [facility]. Surgery date uncertain. Will attempt to get records. Daughter reports that "sutures" need to be removed soon. Again the arm is in a splint. Obtain records from [facility]. (9) DVT prophylaxis: in light of COVID status and increased risk of VTE will utilize lovenox 30mg BID will need PT/OT IVF - NS with KCL Admission and Anticipated Discharge Date Admission Date: October 24, 2020 Results & Data Results & Data ([facility]) Vital Signs (Past 12 Hours) Vital Signs Temp Pulse Pulse Pulse Resp BP Pulse Ox 10/25/20 08:09 98.2 F 62 18 177/84 H 10/25/20 04:00 97.7 F 71 19 158/93 H 94 10/25/20 00:00 98.8 F 78 18 144/86 H 96 10/24/20 22:37 75 10/24/20 20:34 98.4 F 72 155/82 H 96 PG Care Time/CCT Total # of Minutes Spent Total Time Spent with Patient: Total time spent is greater than 50% in coordination of care (as documented) at patient's floor/unit and/or counseling patient: Coding Diagnoses Pneumonia due to COVID-19 virus U07.1; J12.89 Metabolic encephalopathy G93.41 Hypokalemia E87.6 Hyperlipidemia E78.2 Hyperlipidemia type: mixed hyperlipidemia Hypertension I10 Hypertension type: essential hypertension Rheumatoid arthritis M06.9 Rheumatoid arthritis location: unspecified site Rheumatoid factor presence: unspecified presence Current chronic use of systemic steroids Z79.52 Right arm fracture S42.301D Encounter type: subsequent encounter Fracture healing: with routine healing Fracture type: closed DVT prophylaxis Z29.9 (1) Rheumatoid arthritis Rheumatoid arthritis location: unspecified site Rheumatoid factor presence: unspecified presence Qualified Code(s): M06.9 - Rheumatoid arthritis, unspecified (2) Hyperlipidemia Hyperlipidemia type: mixed hyperlipidemia Qualified Code(s): E78.2 - Mixed hyperlipidemia (3) Right arm fracture Encounter type: subsequent encounter Fracture healing: with routine healing Fracture type: closed Qualified Code(s): S42.301D - Unspecified fracture of shaft of humerus, right arm, subsequent encounter for fracture with routine healing (4) Hypertension Hypertension type: essential hypertension Qualified Code(s): I10 - Essential (primary) hypertension
[2020-10-25] MEDS ORDERED: ATORVASTATIN 20 MG TAB PO SCH (09:00)
[2020-10-25] MEDS ORDERED: FOLIC ACID 1 MG TAB PO SCH (09:00)
[2020-10-25] MEDS ORDERED: CALCIUM 600MG + VIT D 400 IU TAB PO SCH (09:00)
[2020-10-25] MEDS ORDERED: PANTOprazole 40 MG TAB PO SCH (09:00)
[2020-10-25] MEDS ORDERED: ESCITALOPRAM OXALATE 20 MG TAB PO SCH (09:00)
[2020-10-25] MEDS ORDERED: ASPIRIN 81 MG ECTAB PO SCH (09:00)
[2020-10-25] MEDS ORDERED: sulfaSALAzine 500 MG TABLET PO SCH (09:00)
[2020-10-25] MEDS ORDERED: amLODIPine BESYLATE 5 MG TAB PO SCH (09:00)
[2020-10-25] MEDS: NSS + 20MEQ KCL 20 MEQ/1,000 ML BAG IV SCH (11:51)
--- NOTE | 2020-10-25 15:48 | Discharge Summary ---
Date of Service October 25, 2020 Admission HPI Per Admitting Provider The HPI was gathered via phone with daughter Doreen as patient was quite confused during the bedside visit and could provide limited history or ROS. 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 She was brought to hospital today via EMS for worsening confusion and increased difficulty ambulating at home in the setting of COVID-19 infection. Per daughter the patient was having difficulty placing feet in appropriate position for ambulating this morning. Robinson gonsalez was diagnosed with COVID-19 on October 18 after having symptoms for about 1 week prior. Patient has been having increased periods of confusion, difficulty speaking (answering only yes to all questions and phrases), and abnormal behavior at night (taking clothes off and unaware of surroundings). Patient recently had an MRI done at [facility] which reportedly showed early "dementia" per the daughter. The patient was also treated at [facility] for repair and plating of her right arm fracture after suffering a fall at home. The patient was to go back to have sutures removed this week, but did not go secondary to COVID. Daughter also has noted the patient has been increasingly incontinent of urine and has also increased toileting at night. During my bedside visit patient complains of cough, headache, poor appetite, and simply feeling unwell. She could not tell me what holiday we had just celebrated (Thanksgiving), could not name the month or day, and wasn't sure where we were. ("that place" she stated). Doreen's cell phone: . Principal Diagnosis metabolic encephalopathy associated with covid infection-> resolved Discharge Exam The patient appeared well Vital signs as documented. Lungs are clear to auscultation and appear unlabored Cardiac exam, Rhythm is regular.. No murmurs, rubs or gallops. Abdominal exam reveals normal bowel sounds, soft non tender, no masses Neurologic exam is alert and oriented Psychologically is without concerns for anxiety or depression. Discharge Data Allergies Allergy/AdvReac Type Severity Reaction Status Date / Time No Known Drug Allergies Allergy Verified 10/24/20 15:18 Consultations 10/24/20 15:25 ED Decision to Admit Stat Hospital Course (1) Pneumonia due to COVID-19 virus: Diagnosed in the outpatient setting on 10/18/20, ill for about 1 week prior to that. remains without hypoxia, does not qualify for remdesivir or convalescent plasma. Chest x-ray does not show significant changes Is on chronic prednisone for RA. will have decadron 6 mg elevated d-dimer may be inflammation not VTE, it is only modestly elevated at 660 normal is <500 No evidence of complicating bacterial process. normal procalcitonin. (2) Metabolic encephalopathy: 2nd to COVID-19 infection in setting of what sounds like a chronic dementia/cognitive impairment at baseline. an outpt takes multiple sedatives/benzos that could contribute to confusion will hold/stop restoril, ativan, oxycodone. continue Risperdal 0.5mg q8h prn severe agitation/delirium. (3) Hypokalemia: Replete Likely 2nd to poor oral intake and recent diarrhea from COVID-19. (4) Hyperlipidemia: Continue statin. (5) Hypertension: Continue amlodipine. (6) Rheumatoid arthritis: Steroid-dependent -- prednisone 5mg/day now on Decadron Also on Mtx 20mg qweek and sulfasalazine 1000mg daily. Hold Mtx. Cont sulfasalazine. Stress-dose steroids w/ decadron in carmela of prednisone. (7) Current chronic use of systemic steroids: see above (8) Right arm fracture: Patient with recent surgery/ORIF at [facility]. Surgery date uncertain. Will attempt to get records. Daughter reports that "sutures" need to be removed soon. Again the arm is in a splint. Obtain records from [facility]. Total Time Total Time Spent Total Time Spent (In Minutes): It required greater than 30 minutes to prepare this patient for discharge Discharge Plan Discharge Items Patient Disposition: Home - Self-Care Reason For Visit: HYPOKALEMIA,METABOLIC ENCEPHALOPATHY,COVID-19 Discharge Diagnosis: covid infection Activity: Per Instructions section Non-emergency contact: Primary Care Provider Call non-emergency contact if: you have any medication questions and your symptoms worsen Follow-up/Referrals: Whitney Cardona MD [Primary Care Provider] - 10/28/20 10:30 am (You have a telephone appointment with Dr Cardona on October 26 at 10:30. And on October 28 at 1030, you have another telephone appointment with Dr Cardona's associate, Dr Zamzam Stone.) Diet: Regular Addtl Attending Provider Instructions: restart your prednisone after dexamethasone is compelted please contact your orthopedic provider to get further instructions for follow up Home Isolation COVID-19 Instructions The following information about Home Isolation is from the CDC Website: https://www.cdc.gov/coronavirus/2019-ncov/hcp/ofafvjtk-bivxptq-zuisnx.html Stay home except to get medical care People who are mildly ill with COVID-19 are able to isolate at home during their illness. You should restrict activities outside your home, except for getting medical care. Do not go to work, school, or public areas. Avoid using public transportation, ride-sharing, or taxis. Separate yourself from other people and animals in your home People: As much as possible, you should stay in a specific room and away from other people in your home. Also, you should use a separate bathroom, if available. Animals: You should restrict contact with pets and other animals while you are sick with COVID-19, just like you would around other people. Although there have not been reports of pets or other animals becoming sick with COVID-19, it is still recommended that people sick with COVID-19 limit contact with animals until more information is known about the virus. When possible, have another member of your household care for your animals while you are sick. If you are sick with COVID-19, avoid contact with your pet, including petting, snuggling, being kissed or licked, and sharing food. If you must care for your pet or be around animals while you are sick, wash your hands before and after you interact with pets and wear a face mask. Call ahead before visiting your doctor If you have a medical appointment, call the healthcare provider and tell them that you have or may have COVID-19. This will help the healthcare providers office take steps to keep other people from getting infected or exposed. Wear a face mask You should wear a face mask when you are around other people (e.g., sharing a room or vehicle) or pets and before you enter a healthcare providers office. If you are not able to wear a face mask (for example, because it causes trouble breathing), then people who live with you should not stay in the same room with you, or they should wear a face mask if they enter your room. Cover your coughs and sneezes Cover your mouth and nose with a tissue when you cough or sneeze. Throw used tissues in a lined trash can. Immediately wash your hands with soap and water for at least 20 seconds or, if soap and water are not available, clean your hands with an alcohol-based hand assistant education director that contains at least 60% alcohol. Clean your hands often Wash your hands often with soap and water for at least 20 seconds, especially after blowing your nose, coughing, or sneezing; going to the bathroom; and before eating or preparing food. If soap and water are not readily available, use an alcohol-based hand assistant education director with at least 60% alcohol, covering all surfaces of your hands and rubbing them together until they feel dry. Soap and water are the best option if hands are visibly dirty. Avoid touching your eyes, nose, and mouth with unwashed hands. Avoid sharing personal household items You should not share dishes, drinking glasses, cups, eating utensils, towels, or bedding with other people or pets in your home. After using these items, they should be washed thoroughly with soap and water. Clean all high-touch surfaces everyday High touch surfaces include counters, tabletops, doorknobs, bathroom fixtures, toilets, phones, keyboards, tablets, and bedside tables. Also, clean any surfaces that may have blood, stool, or body fluids on them. Use a household cleaning spray or wipe, according to the label instructions. Labels contain instructions for safe and effective use of the cleaning product including precautions you should take when applying the product, such as wearing gloves and making sure you have good ventilation during use of the product. Monitor your symptoms Seek prompt medical attention if your illness is worsening (e.g., difficulty breathing).Beforeseeking care, call your healthcare provider and tell them that you have, or are being evaluated for, COVID-19. Put on a face mask before you enter the facility. These steps will help the healthcare providers office to keep other people in the office or waiting room from getting infected or exposed. Ask your healthcare provider to call the local or state health department. Persons who are placed under active monitoring or facilitated self- monitoring should follow instructions provided by their local health department or occupational health professionals, as appropriate. When working with your local health department check their available hours. If you have a medical emergency and need to call 911, notify the dispatch personnel that you have, or are being evaluated for COVID-19. If possible, put on a face mask before emergency medical services arrive. Discontinuing home isolation Patients with confirmed COVID-19 should remain under home isolation precautions until the risk of secondary transmission to others is thought to be low. The decision to discontinue home isolation precautions should be made on a [id number] basis, in consultation with healthcare providers and [facility] and local health departments. Pending Studies at Discharge: No Stand-Alone Forms: My [facility] The Political Student, Smoking Cessation Medications and DC Order Prescriptions: New dexamethasone [Decadron] 6 mg tablet 6 mg PO DAILY Qty: 9 RF: 0 Continued aspirin 81 mg tablet,delayed release (DR/EC) 81 mg PO DAILY Qty: 30 RF: 2 prednisone 5 mg tablet 5 mg PO DAILY Qty: 90 RF: 0 denosumab 60 mg/mL syringe 60 mg SQ .COMPLEX Qty: 1 RF: 0 calcium carbonate-vitamin D3 250-125 mg-unit tablet 1 tab PO DAILY Qty: 30 RF: 0 escitalopram oxalate 20 mg tablet 20 mg PO DAILY Qty: 90 RF: 3 atorvastatin 20 mg tablet 20 mg PO DAILY Qty: 90 RF: 3 gabapentin 100 mg capsule 100 mg PO TID Qty: 270 RF: 1 omeprazole 20 mg capsule,delayed release(DR/EC) 20 mg PO DAILY Qty: 90 RF: 3 temazepam [Restoril] 15 mg capsule 15 mg PO HS PRN (Reason: sleep) Qty: 30 RF: 0 oxycodone 5 mg tablet 5 mg PO BID PRN (Reason: pain) Qty: 60 RF: 0 amlodipine 5 mg tablet 5 mg PO DAILY Qty: 90 RF: 3 lorazepam 0.5 mg tablet 0.5 mg PO BID PRN (Reason: anxiety) Qty: 60 RF: 0 sulfasalazine [Azulfidine] 500 mg tablet 1 gm PO DAILY RF: 0 folic acid 1 mg tablet 3 mg PO DAILY Qty: 90 RF: 3 methotrexate sodium 2.5 mg tablet 20 mg PO WK RF: 0 Discharge Orders: Discharge Order (Routine); Ordered 10/25/20 Ordered By: Jasen England Admission Data Admit Date/Time: 10/24/20 17:18 Attending Provider: Jasen England Admit Provider: Abdirahman Layne Primary Care Provider: Whitney Cardona Other Providers: Abdirahman Layne Coding Level of Care Code D/C Day Management >30 mins Diagnoses Pneumonia due to COVID-19 virus U07.1; J12.89 Metabolic encephalopathy G93.41 Hypokalemia E87.6 Hyperlipidemia E78.2 Hyperlipidemia type: mixed hyperlipidemia Hypertension I10 Hypertension type: essential hypertension Rheumatoid arthritis M06.9 Rheumatoid arthritis location: unspecified site Rheumatoid factor presence: unspecified presence Current chronic use of systemic steroids Z79.52 Right arm fracture S42.301D Encounter type: subsequent encounter Fracture healing: with routine healing Fracture type: closed
== END 2020-10-25 16:37 | disposition home or self-care (01) | DRG 177 ==
LOC: ED 13:08 → 2N 17:18 → SUATTDRO 17:18 → 2N 19:54

== ENCOUNTER 2022-06-12 22:04 | Inpatient (IN) ==
[2022-06-12] MEDS ORDERED: SODIUM CHLORIDE 0.9% 1000ML 500 ML IV ONE (22:23)
--- NOTE | 2022-06-12 22:28 | Emergency Department Note ---
Impression & Plan Cellulitis of left leg, Headache, Hypokalemia ED Provider Note NAME: JAMEY KIMBALL AGE: 76 SEX: F : 1945 ARRIVES VIA: Ambulance INFORMANT: Patient, ED PROVIDER(S): Raul De León DO CHIEF COMPLAINT: Leg pain HPI: The patient is a 76-year-old female who presented to the emergency department with multiple complaints. The patient states that she has leg pain which has been ongoing for approximately 2 weeks. She is noticed that her foot is started become very swollen and erythematous. She denies having any fever. She is on no antibiotics at this time. She also noticed that she has had multiple episodes of urinary incontinence today with back pain. She states the back pain is not necessarily new she has had this before. She also notices a headache today. She states that she has been compliant with her outpatient medications. She also notices pain in her left upper extremity which she describes as a toothache pain she states it is a throbbing pain. It is worsened with moving her arm. The patient states that she has been having trouble walking and noticing generalized weakness as well. ROS: See above HPI for pertinent positives & negatives. A total of 10 systems reviewed and were otherwise negative. PAST MEDICAL HISTORY: See Below PAST SURGICAL HISTORY: See Below FAMILY HISTORY: See Below SOCIAL HISTORY: See Below HOME MEDICATIONS: See Below ALLERGIES: See Below VITALS: See Below PHYSICAL EXAMINATION: GENERAL: The patient is awake and alert. The patient is nonanxious appearing. EYES: The conjunctivae are clear. The pupils are round and reactive. EARS, NOSE, MOUTH AND THROAT: The nose is without any evidence of any deformity. Mucous membranes are dry. NECK: The neck is nontender and supple. RESPIRATORY: Normal respiratory effort is noted there is no evidence of wheezing rhonchi or rales CARDIOVASCULAR: Regular rate and rhythm noted there no murmurs rubs or gallops normal S1 normal S2. GASTROINTESTINAL: The abdomen is moderately distended. There is diffuse tenderness to palpation but no guarding rigidity. MUSCULOSKELETAL/EXTREMITIES: There is no evidence of gross deformity full range of motion is noted in the hips and shoulders. SKIN: Pulses are symmetric in both feet. There is significant erythema and swelling of the left foot. There is no ecchymosis. NEUROLOGIC: Patient is awake alert and oriented x3. There is no facial droop. Speech is clear. MEDICAL DECISION MAKING: The patient is a 76-year-old female who presented to the emergency department by ambulance for an evaluation of difficulty ambulating headache and urinary incontinence. The patient had signs of cellulitis on physical exam. I discussed the patient's laboratory and radiographic studies with her. She is not able to ambulate because of the swelling and the pain in her foot. She was treated with IV antibiotics. I discussed the patient's condition with the on- call [facility] hospitalist. They have agreed to evaluate the patient in the emergency department for further management and disposition. Triage Nursing notes reviewed. Prior medical records reviewed Vital Signs: reviewed and remarkable for elevated blood pressure. Differential diagnosis: Cellulitis, abscess, MRSA infection, DVT, necrotizing fasciitis, dermatitis, drug eruption, allergic reaction, as well as other pathologies. ER treatment provided: See below Diagnostics interpreted by me: ECG: EKG was obtained in the emergency department. My interpretation is normal sinus rhythm at 70 bpm. There is no ectopy. There is no acute ST segment abnormalities noted. This was compared to a tracing from October 24, 2020. On the previous tracing there was a right bundle branch block which is now no longer noted. Cardiac Monitoring: An order was placed for continuous cardiac monitoring. The monitor shows a rate of 77 bpm with sinus rhythm. Laboratory studies: As stated above and show below. Imaging studies: See below Consultation(s): I discussed this case with Dr. Hurt who is on-call for the [facility] group. 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 Urinary incontinence Surgical History H/O colonoscopy H/O esophagogastroduodenoscopy H/O left wrist surgery History of ankle surgery bilateral History of appendectomy History of tubal ligation Hx of cholecystectomy Hx of tonsillectomy Status post hip surgery March 2019-right Family History Father Diabetes Mother Stroke syndrome Uterine cancer Brother Malignant neoplasm of body of pancreas Malignant Pancreatic Neoplasm Colorectal cancer Sister Malignant neoplasm of body of pancreas Malignant Pancreatic Neoplasm Myocardial infarction Denies family history of Ovarian cancer Prostate cancer Breast cancer Social History Smoking Status: Former smoker Tobacco Type: Cigarettes Age Started Using Tobacco: 14; Age Quit Using Tobacco: 18; packs per day: 0.5; Second Hand Exposure: No; Hx Alcohol Use: No Hx Substance Use: No Preferred Language: Moldovan Communication Ability: Effective Visual Impairment: Partially Limited Hearing Ability: Hard of Hearing Lastex Thread Winder Required: No Beliefs That Will Affect Care: None marital status: Current Living Situation: Spouse current occupational status: retired 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 How many Children do You have: 3 Feels Safe at Home: Yes Childhood Exposure to Second-Hand Smoke: Yes caffeine: Yes (tea) Dental Care, Regularly: Yes Physical Activity Frequency: 1-2 Times per Week Physical Activity Frequency Comment: gardening Seatbelt Use: never Sunscreen Use: No Do you think of yourself as: straight/heterosexual Assistive Devices: Denture - Upper, Glasses and Walker Allergies Allergies Allergy/AdvReac Type Severity Reaction Status Date / Time No Known Drug Allergies Allergy NKDA Verified 06/13/22 01:20 Home Meds Home Medications Medication Instructions Recorded Confirmed sulfasalazine 500 mg tablet 1 gm PO DAILY 07/21/20 06/13/22 (Azulfidine) gabapentin 100 mg capsule 400 mg PO HS 03/12/22 06/13/22 ropinirole 0.25 mg tablet See Rx Instructions PO .COMPLEX 03/12/22 06/13/22 acetaminophen 325 mg tablet 650 mg PO QID PRN Pain 05/10/22 06/13/22 (Tylenol) Previous Rx's Medication Instructions Recorded aspirin 81 mg tablet,delayed 81 mg PO DAILY #30 tabs 05/29/19 release folic acid 1 mg tablet 3 mg PO DAILY #90 tabs 06/01/19 prednisone 5 mg tablet 5 mg PO DAILY #90 tabs 06/09/19 denosumab 60 mg/mL subcutaneous 60 mg subcut .COMPLEX #1 mL 03/21/20 syringe donepezil 10 mg tablet 10 mg PO DAILY #30 tabs 04/15/21 baclofen 10 mg tablet 5 mg PO BID #60 tabs 09/02/21 methotrexate sodium 5 mg tablet 30 mg PO .COMPLEX #30 tabs 10/16/21 atorvastatin 20 mg tablet 20 mg PO DAILY #90 tabs 12/16/21 cyanocobalamin (vitamin B-12) 1,000 mcg PO DAILY #100 tabs 01/03/22 1,000 mcg tablet buspirone 10 mg tablet 10 mg PO BID #180 tabs 02/15/22 mometasone 0.1 % topical solution 1 applic topical DAILY PRN skin 03/12/22 irritation #60 mL amlodipine 5 mg tablet 5 mg PO DAILY #90 tabs 03/29/22 omeprazole 20 mg capsule,delayed 20 mg PO DAILY #90 caps 03/29/22 release duloxetine 30 mg capsule,delayed 30 mg PO DAILY #90 caps 05/10/22 release tramadol 50 mg tablet 50 mg PO Q8H PRN pain #90 tabs 06/06/22 Results & Data (ED) Vital Signs Vital Signs - 24 hr 06/12/22 22:14 06/12/22 22:14 06/12/22 22:14 Temperature 37.1 C Temperature Source Oral Pulse Rate 76 Pulse Rate [Apical] 82 Pulse Rate from SpO2 Sensor Pulse Rhythm Pulse Rhythm [Apical] Regular Pulse Strength [Apical] Normal Respiratory Rate 16 16 16 Respiratory Effort / Characteristics Non-Labored Spontaneous Non-Labored Spontaneous Non-Labored Spontaneous Respiratory Depth Normal Normal Respiratory Pattern Regular Regular Blood Pressure 187/129 H Blood Pressure Mean 148 Pulse Oximetry 96 97 96 Oxygen Delivery Method Room Air Room Air Room Air Sepsis Recent Fever Within 48 Hours No Sepsis New/Unexplained Change in Mental Status N/A Sepsis Action Taken by Nursing No Action Required 06/12/22 22:14 06/12/22 22:23 06/12/22 23:13 Temperature Temperature Source Pulse Rate 83 80 80 Pulse Rate [Apical] Pulse Rate from SpO2 Sensor Pulse Rhythm Regular Regular Pulse Rhythm [Apical] Pulse Strength [Apical] Respiratory Rate 16 18 20 Respiratory Effort / Characteristics Respiratory Depth Respiratory Pattern Blood Pressure 206/90 H Blood Pressure Mean 128 Pulse Oximetry 96 98 95 Oxygen Delivery Method Room Air Room Air Room Air Sepsis Recent Fever Within 48 Hours Sepsis New/Unexplained Change in Mental Status Sepsis Action Taken by Nursing 06/13/22 00:18 Temperature Temperature Source Pulse Rate 77 Pulse Rate [Apical] Pulse Rate from SpO2 Sensor 77 Pulse Rhythm Pulse Rhythm [Apical] Pulse Strength [Apical] Respiratory Rate 18 Respiratory Effort / Characteristics Respiratory Depth Respiratory Pattern Blood Pressure 208/100 H Blood Pressure Mean 136 Pulse Oximetry 94 Oxygen Delivery Method Room Air Sepsis Recent Fever Within 48 Hours Sepsis New/Unexplained Change in Mental Status Sepsis Action Taken by Prison Medications Current Medication List: was personally reviewed by me Laboratory Data Attestation: I reviewed the patient's lab results. Result diagrams: 06/12/22 22:15 06/13/22 00:24 Lab Results 06/12/22 06/12/22 06/12/22 Range/Units 22:15 22:15 22:15 WBC 8.97 (4.8-10.8) K/ul RBC 3.86 L (3.93-5.22) M/uL Hgb 13.0 (12.0-16.0) g/dl Hct 39.4 (34.1-44.9) % MCV 102.1 H (80.0-100.0) fL MCH 33.7 (25.0-34.0) pg MCHC 33.0 (32.0-36.0) g/dL RDW Std Deviation 56.8 H (36.4-46.3) fL RDW Coeff of [place] 15.4 H (11.5-14.5) % Plt Count 212 (130-400) K/uL MPV 8.9 L (9.4-12.3) fL Immature Gran % (Auto) 0.4 % Neut % (Auto) 71.9 % Lymph % (Auto) 19.1 % [place] % (Auto) 6.9 % Eos % (Auto) 1.0 % Baso % (Auto) 0.7 % Neut # (Auto) 6.45 (1.4-6.5) K/uL Lymph # (Auto) 1.71 (1.2-3.4) K/uL [place] # (Auto) 0.62 (0.24-0.82) K/uL Eos # (Auto) 0.09 (0-0.50) K/uL Baso # (Auto) 0.06 (0-0.2) K/uL Immature Gran # (Auto) 0.04 H (0.00-0.02) K/uL ESR 34 H (0-30) mm/hr PT 10.6 (9.0-12.0) Seconds INR 1.0 (0.9-1.1) APTT 20.4 L (21.0-31.0) Seconds PTT Ratio 0.7 Sodium Potassium Chloride Carbon Dioxide Anion Gap BUN Creatinine Est Cr Clr Drug Dosing Est GFR ( Amer) Est GFR (Non-Af Amer) BUN/Creatinine Ratio Glucose Lactate (0.4-2.0) mmol/L Calcium Magnesium Total Bilirubin AST ALT Alkaline Phosphatase Troponin I High Sens C-Reactive Protein Total Protein Albumin Globulin Albumin/Globulin Ratio Procalcitonin (0-0.5) ng/ml Urine Color Urine Appearance (Clear) Urine pH (4.5-7.5) Ur Specific [place] (1.000-1.030) Urine Protein (Negative) Urine Glucose (UA) (Negative) Urine Ketones (Negative) Urine Blood (Negative) Urine Nitrite (Negative) Urine Bilirubin (Negative) Urine Urobilinogen (Negative) Ur Leukocyte Esterase (Negative) Urine WBC (Auto) (0-5) /hpf Urine RBC (Auto) (0-4) /hpf U Hyaline Cast (Auto) (0-5) /lpf U Epithel Cells (Auto) (0-5) /lpf Urine Bacteria (Auto) (Negative) 06/12/22 06/12/22 06/12/22 Range/Units 22:15 22:45 22:55 WBC (4.8-10.8) K/ul RBC (3.93-5.22) M/uL Hgb (12.0-16.0) g/dl Hct (34.1-44.9) % MCV (80.0-100.0) fL MCH (25.0-34.0) pg MCHC (32.0-36.0) g/dL RDW Std Deviation (36.4-46.3) fL RDW Coeff of [place] (11.5-14.5) % Plt Count (130-400) K/uL MPV (9.4-12.3) fL Immature Gran % (Auto) % Neut % (Auto) % Lymph % (Auto) % [place] % (Auto) % Eos % (Auto) % Baso % (Auto) % Neut # (Auto) (1.4-6.5) K/uL Lymph # (Auto) (1.2-3.4) K/uL [place] # (Auto) (0.24-0.82) K/uL Eos # (Auto) (0-0.50) K/uL Baso # (Auto) (0-0.2) K/uL Immature Gran # (Auto) (0.00-0.02) K/uL ESR (0-30) mm/hr PT (9.0-12.0) Seconds INR (0.9-1.1) APTT (21.0-31.0) Seconds PTT Ratio Sodium Cancelled Potassium Cancelled Chloride Cancelled Carbon Dioxide Cancelled Anion Gap Cancelled BUN Cancelled Creatinine Cancelled Est Cr Clr Drug Dosing Cancelled Est GFR ( Amer) Cancelled Est GFR (Non-Af Amer) Cancelled BUN/Creatinine Ratio Cancelled Glucose Cancelled Lactate 0.9 (0.4-2.0) mmol/L Calcium Cancelled Magnesium Cancelled Total Bilirubin Cancelled AST Cancelled ALT Cancelled Alkaline Phosphatase Cancelled Troponin I High Sens Cancelled C-Reactive Protein Cancelled Total Protein Cancelled Albumin Cancelled Globulin Cancelled Albumin/Globulin Ratio Cancelled Procalcitonin < 0.05 (0-0.5) ng/ml Urine Color Urine Appearance (Clear) Urine pH (4.5-7.5) Ur Specific [place] (1.000-1.030) Urine Protein (Negative) Urine Glucose (UA) (Negative) Urine Ketones (Negative) Urine Blood (Negative) Urine Nitrite (Negative) Urine Bilirubin (Negative) Urine Urobilinogen (Negative) Ur Leukocyte Esterase (Negative) Urine WBC (Auto) (0-5) /hpf Urine RBC (Auto) (0-4) /hpf U Hyaline Cast (Auto) (0-5) /lpf U Epithel Cells (Auto) (0-5) /lpf Urine Bacteria (Auto) (Negative) 06/13/22 06/13/22 Range/Units 00:00 00:24 WBC (4.8-10.8) K/ul RBC (3.93-5.22) M/uL Hgb (12.0-16.0) g/dl Hct (34.1-44.9) % MCV (80.0-100.0) fL MCH (25.0-34.0) pg MCHC (32.0-36.0) g/dL RDW Std Deviation (36.4-46.3) fL RDW Coeff of [place] (11.5-14.5) % Plt Count (130-400) K/uL MPV (9.4-12.3) fL Immature Gran % (Auto) % Neut % (Auto) % Lymph % (Auto) % [place] % (Auto) % Eos % (Auto) % Baso % (Auto) % Neut # (Auto) (1.4-6.5) K/uL Lymph # (Auto) (1.2-3.4) K/uL [place] # (Auto) (0.24-0.82) K/uL Eos # (Auto) (0-0.50) K/uL Baso # (Auto) (0-0.2) K/uL Immature Gran # (Auto) (0.00-0.02) K/uL ESR (0-30) mm/hr PT (9.0-12.0) Seconds INR (0.9-1.1) APTT (21.0-31.0) Seconds PTT Ratio Sodium 139 Potassium 3.2 L Chloride 107 Carbon Dioxide 24 Anion Gap 8 BUN 14 Creatinine 0.71 Est Cr Clr Drug Dosing 59.4 Est GFR ( Amer) 94.6 Est GFR (Non-Af Amer) 81.6 BUN/Creatinine Ratio 19.7 Glucose 87 Lactate (0.4-2.0) mmol/L Calcium 8.4 L Magnesium 2.1 Total Bilirubin 0.8 AST 24 ALT 18 Alkaline Phosphatase 69 Troponin I High Sens 11.0 C-Reactive Protein < 0.50 Total Protein 6.3 Albumin 3.8 Globulin 2.5 Albumin/Globulin Ratio 1.5 Procalcitonin (0-0.5) ng/ml Urine Color Yellow Urine Appearance Clear (Clear) Urine pH 8.0 H (4.5-7.5) Ur Specific [place] 1.014 (1.000-1.030) Urine Protein Trace H (Negative) Urine Glucose (UA) Negative (Negative) Urine Ketones 1+ H (Negative) Urine Blood 2+ H (Negative) Urine Nitrite Negative (Negative) Urine Bilirubin Negative (Negative) Urine Urobilinogen Negative (Negative) Ur Leukocyte Esterase Negative (Negative) Urine WBC (Auto) 1-5 (0-5) /hpf Urine RBC (Auto) 10-30 H (0-4) /hpf U Hyaline Cast (Auto) 0 (0-5) /lpf U Epithel Cells (Auto) 20-30 H (0-5) /lpf Urine Bacteria (Auto) Negative (Negative) Administered Medications Discontinued Medications Sodium Chloride (Nss 1000ml) 500 mls @ 999 mls/hr IV .Q31M ONE Stop: 06/12/22 22:53 Last Infusion: 06/13/22 00:01 Dose: 0 mls/hr Documented By: Admin: 06/12/22 22:38 Dose: 999 mls/hr Documented By: MARISOL Imaging Data Attestation: I personally reviewed and interpreted this imaging study as follows: My Impression: 1 view chest x-ray was obtained in the emergency department. My interpretation is no acute disease, no infiltrate, no free air. Radiologist's Impression: Patient: JAMEY KIMBALL (Female) : 41 Status: ER Date: 06/13/22 00:27 Room #: History: DIFFUSE ABD PAIN Slices: [id number] Priors: Tech: William Pham @ [phone] Exams: CT ABDOMEN & PELVIS Without Contrast Contrast: Accession Numbers: [id number] Referring Physician: REFERRED SELF Preliminary Findings Only See Final Report For Complete Findings CT ABDOMEN & PELVIS Without Contrast: No evidence of acute intra-abdominal pathology. There is uterine endometrium. Recommend pelvic ultrasound for further evaluation. Status post cholecystectomy. The common bile duct is prominent without evidence of obstructing lesion. Advanced atrophy of the pancreas. No evidence of hydronephrosis or urinary calculi. No evidence of appendicitis. Diverticulosis of the descending and sigmoid colon. There is a right dynamic hip screw in place. Spondylolisthesis at L3-4 and L4-5. No comparisons.. Radiologist: Laura Davis MD Study ready at 00:34 and initial results transmitted at 01:08 Patient: JAMEY KIMBALL (Female) : 41 Status: ER Date: 06/13/22 00:27 Room #: History: HEADACHE Slices: 58 Priors: Tech: William Pham @ [phone] Exams: CT HEAD Contrast: Accession Numbers: [id number] Referring Physician: REFERRED SELF Preliminary Findings Only See Final Report For Complete Findings CT HEAD: No evidence of acute intracranial pathology. Mild to moderate nonspecific white matter changes. Status post right lens replacement. Advanced left TMJ arthropathy. No comparisons. Radiologist: Laura Davis MD Study ready at 00:32 and initial results transmitted at 01:03 Discharge Plan Visit Data Chief Complaint: Illness Stated Complaint: headache ED Provider: Raul De León Discharge Problem: Cellulitis of left leg, Headache, Hypokalemia Patient Disposition: Being Evaluated by Hospitalist Forms Stand Alone Forms: [facility] Prescriptions Prescriptions: No Action aspirin 81 mg tablet,delayed release (DR/EC) 81 mg PO DAILY Qty: 30 2RF prednisone 5 mg tablet 5 mg PO DAILY Qty: 90 0RF denosumab 60 mg/mL syringe 60 mg SQ .COMPLEX Qty: 1 0RF Rx Instructions: 60 mg subcut EVERY 6 MONTHS; donepezil 10 mg tablet 10 mg PO DAILY Qty: 30 2RF baclofen 10 mg tablet 5 mg PO BID Qty: 60 2RF atorvastatin 20 mg tablet 20 mg PO DAILY Qty: 90 3RF cyanocobalamin (vitamin B-12) 1,000 mcg tablet 1,000 mcg PO DAILY Qty: 100 3RF buspirone 10 mg tablet 10 mg PO BID Qty: 180 3RF omeprazole 20 mg capsule,delayed release(DR/EC) 20 mg PO DAILY Qty: 90 3RF amlodipine 5 mg tablet 5 mg PO DAILY Qty: 90 3RF tramadol 50 mg tablet 50 mg PO Q8H PRN (Reason: pain) Qty: 90 0RF sulfasalazine [Azulfidine] 500 mg tablet 1 gm PO DAILY Rx Instructions: give with food (meal/snack) methotrexate sodium 5 mg tablet 30 mg PO .COMPLEX Qty: 30 2RF Rx Instructions: 30 mg PO sundays; acetaminophen [Tylenol] 325 mg tablet 650 mg PO QID PRN (Reason: Pain) duloxetine 30 mg capsule,delayed release(DR/EC) 30 mg PO DAILY Qty: 90 3RF Rx Instructions: replaces escitalopram folic acid 1 mg tablet 3 mg PO DAILY Qty: 90 3RF gabapentin 100 mg capsule 400 mg PO HS ropinirole 0.25 mg tablet See Rx Instructions PO .COMPLEX Rx Instructions: 1 po qam and 2 HS PO; mometasone 0.1 % solution 1 applic topical DAILY PRN (Reason: skin irritation) Qty: 60 0RF Referrals Referrals: Whitney Cardona MD [Primary Care Provider] -
[2022-06-12 22:51] LABS: Basophils # (auto) 0.06 K/uL (0-0.2); Basophils % (auto) 0.7 %; Eosinophils # (auto) 0.09 K/uL (0-0.50); Hematocrit (blood only) 39.4 % (34.1-44.9); Immature Granulocytes # (auto) 0.04 K/uL (0.00-0.02); Immature Granulocytes % (auto) 0.4 %; Lymphocytes # (auto) 1.71 K/uL (1.2-3.4); Lymphocytes % (auto) 19.1 %; Mean Corpuscular Hemoglobin 33.7 pg (25.0-34.0); Mean Corpuscular Volume 102.1 fL (80.0-100.0); Mean Platelet Volume 8.9 fL (9.4-12.3); Monocytes # (auto) 0.62 K/uL (0.24-0.82); Monocytes % (auto) 6.9 %; Neutrophils # (auto) 6.45 K/uL (1.4-6.5); Neutrophils % (auto) 71.9 %; Platelet Count 212 K/uL (130-400); RDW Coefficient of Variation 15.4 % (11.5-14.5); RDW Standard Deviation 56.8 fL (36.4-46.3); Red Blood Count 3.86 M/uL (3.93-5.22); White Blood Count 8.97 K/ul (4.8-10.8)
[2022-06-12 23:02] LABS: Partial Thromboplastin Ratio 0.7; Partial Thromboplastin Time 20.4 Seconds (21.0-31.0); Prothrombin Time 10.6 Seconds (9.0-12.0)
[2022-06-13 00:28] LABS: Appearance Urine Clear (Clear); Bacteria Urine Automated Negative (Negative); Bilirubin Urine Negative (Negative); Blood Urine 2+ (Negative); Cast Urine Automated 0 /lpf (0-5); Color Urine Yellow; Epithelial Cell Urine Auto 20-30 /lpf (0-5); Glucose Urine UA Negative (Negative); Ketones Urine 1+ (Negative); Leukocyte Esterase Urine Negative (Negative); Nitrite Urine Negative (Negative); Specific Gravity Urine 1.014 (1.000-1.030); Urobilinogen Urine Negative (Negative)
[2022-06-13 00:33] LABS: Protein Urine Trace (Negative)
[2022-06-13 00:56] LABS: Alanine Aminotransferase 18 U/L (7-52); Albumin Globulin Ratio 1.5 (0.9-2); Albumin Level 3.8 gm/dl (3.4-5.0); Alkaline Phosphatase 69 U/L (34-104); Anion Gap 8 (3-11); Aspartate Aminotransferase 24 U/L (13-39); BUN Creatinine Ratio 19.7 (10-20); Bilirubin,Total 0.8 mg/dl (0.2-1.0); Blood Urea Nitrogen 14 mg/dl (6-23); C Reactive Protein < 0.50 mg/dl (0-0.5); Calcium 8.4 mg/dl (8.5-10.1); Carbon Dioxide 24 mmol/L (21-32); Chloride 107 mmol/L (98-107); Creatinine Clr Calc Pharmacy 59.4 ml/min; Est GFR (African American) 94.6 ml/min; Est GFR (Non-African American) 81.6 ml/min; Globulin 2.5 gm/dl (2.5-4.0); Glucose 87 mg/dl (70-99(Fasting)); Magnesium 2.1 mg/dl (1.7-2.4); Potassium 3.2 mmol/L (3.5-5.1); Sodium 139 mmol/L (136-145); Total Protein 6.3 gm/dl (6.0-8.3)
[2022-06-13] MEDS ORDERED: cefTRIAXone SODIUM 2,000 MG/70 ML BAG IV STA (00:56)
[2022-06-13] MEDS ORDERED: POTASSIUM CHLORIDE / WTR 10 MEQ/100 ML PLCT IV ONE (01:20)
--- NOTE | 2022-06-13 01:38 | History & Physical Report ---
Date of Service June 13, 2022 Assessment & Plan (1) Cellulitis of left leg: Plan: Vancomycin IV per pharmacokinetic monitoring Ceftriaxone 1 g IV daily Check uric acid level to assess for underlying gout (2) Rheumatoid arthritis: Plan: Continue folic acid, sulfasalazine, baclofen, gabapentin and prednisone On methotrexate as outpatient Increase prednisone from 5 to 10 mg for modified stress dosing (3) Spinal stenosis, lumbar region with neurogenic claudication: Plan: Continue with tramadol 50 mg p.o. every 8 hours as needed moderate pain (4) Dementia: Plan: Continue donepezil (5) Acid reflux disease: Plan: Continue omeprazole/pantoprazole (6) Hyperlipidemia: Plan: Continue atorvastatin 20 mg daily (7) Hypertension: Plan: Continue amlodipine, aspirin (8) Generalized anxiety disorder: Plan: Generalized anxiety disorder/depression- Continue buspirone and duloxetine 30 mg daily (9) Depression: Plan: See above (10) Ambulatory dysfunction: Plan: Consult PT/OT prior to discharge History of Present Illness Chief Complaint: The patient presented to the emergency department with complaint of left lower extremity redness, pain and swelling over the past 2 weeks, multiple episodes of urinary incontinence, and a worsening of her chronic low back pain. Primary Care Provider: Whitney Cardona MD The patient is a 76-year-old female with a past medical history including lumbar spinal stenosis, dementia, GERD, gait abnormality, generalized anxiety disorder, high hyperlipidemia, hypertension, insomnia, lumbar radiculopathy, osteoporosis and rheumatoid arthritis. She presents as noted above. She Allergies Allergy/AdvReac Type Severity Reaction Status Date / Time No Known Drug Allergies Allergy NKDA Verified 06/13/22 01:20 Home Medications Medication Instructions Recorded Confirmed Type aspirin 81 mg tablet,delayed 81 mg PO DAILY #30 tabs 05/29/19 06/13/22 Rx release folic acid 1 mg tablet 3 mg PO DAILY #90 tabs 06/01/19 06/13/22 Rx prednisone 5 mg tablet 5 mg PO DAILY #90 tabs 06/09/19 06/13/22 Rx denosumab 60 mg/mL subcutaneous 60 mg subcut .COMPLEX #1 mL 03/21/20 06/13/22 Rx syringe sulfasalazine 500 mg tablet 1 gm PO DAILY 07/21/20 06/13/22 History (Azulfidine) donepezil 10 mg tablet 10 mg PO DAILY #30 tabs 04/15/21 06/13/22 Rx baclofen 10 mg tablet 5 mg PO BID #60 tabs 09/02/21 06/13/22 Rx methotrexate sodium 5 mg tablet 30 mg PO .COMPLEX #30 tabs 10/16/21 06/13/22 Rx atorvastatin 20 mg tablet 20 mg PO DAILY #90 tabs 12/16/21 06/13/22 Rx cyanocobalamin (vitamin B-12) 1,000 mcg PO DAILY #100 tabs 01/03/22 06/13/22 Rx 1,000 mcg tablet buspirone 10 mg tablet 10 mg PO BID #180 tabs 02/15/22 06/13/22 Rx gabapentin 100 mg capsule 400 mg PO HS 03/12/22 06/13/22 History mometasone 0.1 % topical solution 1 applic topical DAILY PRN skin 03/12/22 06/13/22 Rx irritation #60 mL ropinirole 0.25 mg tablet See Rx Instructions PO .COMPLEX 03/12/22 06/13/22 History amlodipine 5 mg tablet 5 mg PO DAILY #90 tabs 03/29/22 06/13/22 Rx omeprazole 20 mg capsule,delayed 20 mg PO DAILY #90 caps 03/29/22 06/13/22 Rx release acetaminophen 325 mg tablet 650 mg PO QID PRN Pain 05/10/22 06/13/22 History (Tylenol) duloxetine 30 mg capsule,delayed 30 mg PO DAILY #90 caps 05/10/22 06/13/22 Rx release tramadol 50 mg tablet 50 mg PO Q8H PRN pain #90 tabs 06/06/22 06/13/22 Rx 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 Urinary incontinence Surgical History H/O colonoscopy H/O esophagogastroduodenoscopy H/O left wrist surgery History of ankle surgery bilateral History of appendectomy History of tubal ligation Hx of cholecystectomy Hx of tonsillectomy Status post hip surgery March 2019-right Family History Father Diabetes Mother Stroke syndrome Uterine cancer Brother Malignant neoplasm of body of pancreas Malignant Pancreatic Neoplasm Colorectal cancer Sister Malignant neoplasm of body of pancreas Malignant Pancreatic Neoplasm Myocardial infarction Denies family history of Ovarian cancer Prostate cancer Breast cancer Social History Smoking Status: Former smoker Tobacco Type: Cigarettes Age Started Using Tobacco: 14; Age Quit Using Tobacco: 18; packs per day: 0.5; Second Hand Exposure: No; Hx Alcohol Use: No Hx Substance Use: No Preferred Language: Hebrew Communication Ability: Effective Visual Impairment: Partially Limited Hearing Ability: Hard of Hearing Electric Blanket Packer Required: No Beliefs That Will Affect Care: None marital status: Current Living Situation: Spouse current occupational status: retired 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 How many Children do You have: 3 Feels Safe at Home: Yes Childhood Exposure to Second-Hand Smoke: Yes caffeine: Yes (tea) Dental Care, Regularly: Yes Physical Activity Frequency: 1-2 Times per Week Physical Activity Frequency Comment: gardening Seatbelt Use: never Sunscreen Use: No Do you think of yourself as: straight/heterosexual Assistive Devices: Denture - Upper, Glasses and Walker Review of Systems Review of Systems: The patient denies chest pain, palpitations, shortness of breath, dyspnea on exertion, cough, sore throat, fevers, chills, sweats, nausea, vomiting, diarrhea , constipation, abdominal pain, pelvic pain, blood in urine or stool, lightheadedness, dizziness, headache, loss of consciousness, rash, abnormal bruising or bleeding, focal or generalized weakness, numbness or tingling in arms, or night sweats. The review of systems is otherwise negative other than for that already noted above, and at least 10 systems have been reviewed. Physical Exam Physical Exam: The patient is awake, alert and oriented 3, well developed and well nourished, normocephalic and atraumatic, lying in bed and in no acute distress. HEENT--PERRL, EOMI, mucous membranes and oropharynx normal. Neck--supple. No JVD. No bruits. Thyroid normal, trachea midline, no adenopathy. Heart--normal S1 and S2. No murmurs, rubs or gallops. Lungs--clear bilaterally, no respiratory distress, no accessory muscle use. Abdomen--normal bowel sounds and soft. Nontender. Nondistended, no hernias or masses, no organomegaly. Extremities--no cyanosis or clubbing. Right lower extremity normal. Left lower extremity with mild erythema across dorsum of foot and toes and mild edema Dermatologic--see above Neurologic--cranial nerves II through XII grossly intact. Rheumatologic--limited exam Psychiatric--normal affect. Results & Data Results & Data ([facility]) Vital Signs (Past 12 Hours) Vital Signs Temp Pulse Pulse Resp BP Pulse Ox O2 Del Method 06/13/22 01:00 85 17 209/102 H 96 Room Air 06/13/22 00:30 80 18 186/95 H 96 Room Air 06/13/22 00:18 77 18 208/100 H 94 Room Air 06/12/22 23:13 80 20 206/90 H 95 Room Air 06/12/22 22:23 80 18 98 Room Air 06/12/22 22:14 83 16 96 Room Air 06/12/22 22:14 16 96 Room Air 06/12/22 22:14 82 16 97 Room Air 06/12/22 22:14 37.1 C 76 16 187/129 H 96 Room Air Laboratory Results Laboratory Results WBC 8.97 K/ul (4.8-10.8) 06/12/22 22:15 RBC 3.86 M/uL (3.93-5.22) L 06/12/22 22:15 Hgb 13.0 g/dl (12.0-16.0) 06/12/22 22:15 Hct 39.4 % (34.1-44.9) 06/12/22 22:15 MCV 102.1 fL (80.0-100.0) H 06/12/22 22:15 MCH 33.7 pg (25.0-34.0) 06/12/22 22:15 MCHC 33.0 g/dL (32.0-36.0) 06/12/22 22:15 RDW Std Deviation 56.8 fL (36.4-46.3) H 06/12/22 22:15 RDW Coeff of [place] 15.4 % (11.5-14.5) H 06/12/22 22:15 Plt Count 212 K/uL (130-400) 06/12/22 22:15 MPV 8.9 fL (9.4-12.3) L 06/12/22 22:15 Immature Gran % (Auto) 0.4 % 06/12/22 22:15 Neut % (Auto) 71.9 % 06/12/22 22:15 Lymph % (Auto) 19.1 % 06/12/22 22:15 [place] % (Auto) 6.9 % 06/12/22 22:15 Eos % (Auto) 1.0 % 06/12/22 22:15 Baso % (Auto) 0.7 % 06/12/22 22:15 Neut # (Auto) 6.45 K/uL (1.4-6.5) 06/12/22 22:15 Lymph # (Auto) 1.71 K/uL (1.2-3.4) 06/12/22 22:15 [place] # (Auto) 0.62 K/uL (0.24-0.82) 06/12/22 22:15 Eos # (Auto) 0.09 K/uL (0-0.50) 06/12/22 22:15 Baso # (Auto) 0.06 K/uL (0-0.2) 06/12/22 22:15 Immature Gran # (Auto) 0.04 K/uL (0.00-0.02) H 06/12/22 22:15 ESR 34 mm/hr (0-30) H 06/12/22 22:15 PT 10.6 Seconds (9.0-12.0) 06/12/22 22:15 INR 1.0 (0.9-1.1) 06/12/22 22:15 APTT 20.4 Seconds (21.0-31.0) L 06/12/22 22:15 PTT Ratio 0.7 06/12/22 22:15 Sodium 139 mmol/L (136-145) 06/13/22 00:24 Potassium 3.2 mmol/L (3.5-5.1) L 06/13/22 00:24 Chloride 107 mmol/L (98-107) 06/13/22 00:24 Carbon Dioxide 24 mmol/L (21-32) 06/13/22 00:24 Anion Gap 8 (3-11) 06/13/22 00:24 BUN 14 mg/dl (6-23) 06/13/22 00:24 Creatinine 0.71 mg/dl (0.6-1.2) 06/13/22 00:24 Est Cr Clr Drug Dosing 59.4 ml/min 06/13/22 00:24 Est GFR ( Amer) 94.6 ml/min 06/13/22 00:24 Est GFR (Non-Af Amer) 81.6 ml/min 06/13/22 00:24 BUN/Creatinine Ratio 19.7 (10-20) 06/13/22 00:24 Glucose 87 mg/dl (70-99(Fasting)) 06/13/22 00:24 Lactate 0.9 mmol/L (0.4-2.0) 06/12/22 22:55 Uric Acid 4.5 mg/dl (2.6-7.2) 06/13/22 00:24 Calcium 8.4 mg/dl (8.5-10.1) L 06/13/22 00:24 Magnesium 2.1 mg/dl (1.7-2.4) 06/13/22 00:24 Total Bilirubin 0.8 mg/dl (0.2-1.0) 06/13/22 00:24 AST 24 U/L (13-39) 06/13/22 00:24 ALT 18 U/L (7-52) 06/13/22 00:24 Alkaline Phosphatase 69 U/L (34-104) 06/13/22 00:24 Troponin I High Sens 11.0 pg/ml (0-14) 06/13/22 00:24 C-Reactive Protein < 0.50 mg/dl (0-0.5) 06/13/22 00:24 Total Protein 6.3 gm/dl (6.0-8.3) 06/13/22 00:24 Albumin 3.8 gm/dl (3.4-5.0) 06/13/22 00:24 Globulin 2.5 gm/dl (2.5-4.0) 06/13/22 00:24 Albumin/Globulin Ratio 1.5 (0.9-2) 06/13/22 00:24 Procalcitonin < 0.05 ng/ml (0-0.5) 06/12/22 22:45 Urine Color Yellow 06/13/22 00:00 Urine Appearance Clear (Clear) 06/13/22 00:00 Urine pH 8.0 (4.5-7.5) H 06/13/22 00:00 Ur Specific [place] 1.014 (1.000-1.030) 06/13/22 00:00 Urine Protein Trace (Negative) H 06/13/22 00:00 Urine Glucose (UA) Negative (Negative) 06/13/22 00:00 Urine Ketones 1+ (Negative) H 06/13/22 00:00 Urine Blood 2+ (Negative) H 06/13/22 00:00 Urine Nitrite Negative (Negative) 06/13/22 00:00 Urine Bilirubin Negative (Negative) 06/13/22 00:00 Urine Urobilinogen Negative (Negative) 06/13/22 00:00 Ur Leukocyte Esterase Negative (Negative) 06/13/22 00:00 Urine WBC (Auto) 1-5 /hpf (0-5) 06/13/22 00:00 Urine RBC (Auto) 10-30 /hpf (0-4) H 06/13/22 00:00 U Hyaline Cast (Auto) 0 /lpf (0-5) 06/13/22 00:00 U Epithel Cells (Auto) 20-30 /lpf (0-5) H 06/13/22 00:00 Urine Bacteria (Auto) Negative (Negative) 06/13/22 00:00 SARS-CoV-2, RNA, NAAT NEGATIVE (NEGATIVE) 06/13/22 01:22 Diagnostic Findings [facility] Patient: JAMEY KIMBALL (Female) : 41 Status: ER Date: 06/13/22 00:27 Room #: History: HEADACHE Slices: 58 Priors: Tech: William Pham @ [phone] Exams: CT HEAD Contrast: Accession Numbers: [id number] Referring Physician: REFERRED SELF Preliminary Findings Only See Final Report For Complete Findings CT HEAD: No evidence of acute intracranial pathology. Mild to moderate nonspecific white matter changes. Status post right lens replacement. Advanced left TMJ arthropathy. No comparisons. Radiologist: Laura Davis MD Study ready at 00:32 and initial results transmitted at 01:03 *This report constitutes a preliminary interpretation only. Non-acute findings felt to be unrelated to the clinical presentation may not be discussed in this report. The study will be interpreted and a final report will be generated by the local Radiologist the following shift. To reach the [facility] radiology department call [phone]. [facility] Patient: JAMEY KIMBALL (Female) : 41 Status: ER Date: 06/13/22 00:27 Room #: History: DIFFUSE ABD PAIN Slices: [phone] Priors: Tech: William Pham @ [phone] Exams: CT ABDOMEN & PELVIS Without Contrast Contrast: Accession Numbers: [id number] Referring Physician: REFERRED SELF Preliminary Findings Only See Final Report For Complete Findings CT ABDOMEN & PELVIS Without Contrast: No evidence of acute intra-abdominal pathology. There is uterine endometrium. Recommend pelvic ultrasound for further evaluation. Status post cholecystectomy. The common bile duct is prominent without evidence of obstructing lesion. Advanced atrophy of the pancreas. No evidence of hydronephrosis or urinary calculi. No evidence of appendicitis. Diverticulosis of the descending and sigmoid colon. There is a right dynamic hip screw in place. Spondylolisthesis at L3-4 and L4-5. No comparisons.. Radiologist: Laura Davis MD Study ready at 00:34 and initial results transmitted at 01:08 *This report constitutes a preliminary interpretation only. Non-acute findings felt to be unrelated to the clinical presentation may not be discussed in this report. The study will be interpreted and a final report will be generated by the local Radiologist the following shift. To reach the hospital radiology department call [phone]. Code Status & VTE Plan Code Status Full code VTE Prophylaxis Plan VTE Prophylaxis will be ordered: Yes PG Care Time/CCT Total # of Minutes Spent Total Time Spent with Patient: Total time spent is greater than 50% in coordination of care (as documented) at patient's floor/unit and/or counseling patient: Coding Level of Care Code 91493 Initial Inpt Care Lvl 3 Diagnoses Cellulitis of left leg L03.116 Rheumatoid arthritis M06.9 Rheumatoid arthritis location: unspecified site Rheumatoid factor presence: unspecified presence Spinal stenosis, lumbar region with neurogenic claudication M48.062 Dementia F03.90 Acid reflux disease K21.9 Hyperlipidemia E78.2 Hyperlipidemia type: mixed hyperlipidemia Hypertension I10 Hypertension type: essential hypertension Generalized anxiety disorder F41.1 Depression F32.9 Ambulatory dysfunction R26.2 (1) Rheumatoid arthritis Rheumatoid arthritis location: unspecified site Rheumatoid factor presence: unspecified presence Qualified Code(s): M06.9 - Rheumatoid arthritis, unspec ified (2) Hyperlipidemia Hyperlipidemia type: mixed hyperlipidemia Qualified Code(s): E78.2 - Mixed hyperlipidemia (3) Hypertension Hypertension type: essential hypertension Qualified Code(s): I10 - Essential (primary) hypertension
[2022-06-13] MEDS ORDERED: traMADol HCL 50 MG TABLET PO STA (02:29)
[2022-06-13] MEDS ORDERED: traMADol HCL 50 MG TABLET ONE (02:34)
[2022-06-13] MEDS ORDERED: LACTATED RINGER'S 1,000 ML IV SCH (02:45)
[2022-06-13] MEDS ORDERED: ONDANSETRON INJ 2 MG/ML 2 ML VIAL IV PRN (06:01)
[2022-06-13] MEDS ORDERED: VANCOMYCIN HCL 1,000 MG in SODIUM CHLORIDE 0.9% 250 ML IV SCH (06:01)
[2022-06-13] MEDS ORDERED: VANCOMYCIN CONSULT ACTIVE PRN (06:01)
[2022-06-13] MEDS ORDERED: ACETAMINOPHEN 325 MG TAB PO PRN (06:01)
[2022-06-13] MEDS ORDERED: VANCOMYCIN HCL 1,500 MG in SODIUM CHLORIDE 0.9% 500 ML IV ONE (06:30)
--- NOTE | 2022-06-13 07:11 | Pharmacy Report ---
Pharmacy PK ABX Note - Date of Service June 13, 2022 - Assessment and Plan Assessment 76 year old F receiving vancomycin and ceftriaxone for treatment of L leg cellulitis. Pt with history of rheumatoid arthritis- immunocompromised. Blood cultures pending. Renal function stable. Day #1 of antimicrobial therapy. Plan Vancomycin * Vanc 1500mg IV X 1 ~0700 this AM * Maintenance dose: 1500 mg IV every 24 hours to begin ~1400 this afternoon * Regimen is predicted to achieve target AUC/JANAY of 400-600 mg/L.hr * Level will be ordered if vancomycin continues beyond 48h or if clinically indicated. Pharmacy will continue to follow and will adjust dose/frequency as necessary. Thank you. Pharmacy has transitioned to AUC monitoring for vancomycin. AUC/JANAY is the preferred PK/PD target and is associated with decreased risk of nephrotoxicity compared to traditional trough targets.
[2022-06-13] MEDS: DULoxetine HCL 30 MG CAP PO SCH (07:48)
[2022-06-13] MEDS: amLODIPine BESYLATE 5 MG TAB PO SCH (07:48)
[2022-06-13] MEDS: FOLIC ACID 1 MG TAB PO SCH (07:50)
[2022-06-13] MEDS: ASPIRIN 81 MG ECTAB PO SCH (07:50)
[2022-06-13] MEDS: CYANOCOBALAMIN (B-12) 500 MCG TABLET PO SCH (07:52)
[2022-06-13] MEDS: sulfaSALAzine 500 MG TABLET PO SCH (07:52)
[2022-06-13] MEDS: busPIRone 5 MG TAB PO SCH ×2 (07:53→21:14)
[2022-06-13] MEDS: ATORVASTATIN 20 MG TAB PO SCH (07:54)
[2022-06-13] MEDS: BACLOFEN 10 MG TAB PO SCH ×2 (07:55→21:09)
[2022-06-13] MEDS: DONEPEZIL HCL 10 MG TAB PO SCH (07:56)
--- NOTE | 2022-06-13 07:59 | CT Scan Report ---
CT head/brain wo con CLINICAL HISTORY: pain Technique: Contiguous axial CT images of the head were acquired from the base of the skull to the frank norberto without intravenous contrast administration. Images were viewed in brain, subdural and bone [facility]. Automated dose lowering techniques and/or adjustment according to patient size were utilized for this exam. Comparison: None available at the time of this dictation. Findings: Areas of decreased attenuation are present in the periventricular and subcortical white matter bilate rally consistent with small vessel ischemic disease. Generalized cerebral atrophy with commensurate e nlargement of the ventricles, sulci, and cisterns is also present. There is no acute intracranial hem orrhage or evidence of acute territorial infarction. No shift of the midline structures, mass effect, or extra-axial abnormalities are shown. Atherosclerotic calcifications are present in the intracran ial segments of the internal carotid arteries. Imaged portions of the paranasal sinuses and mastoid air cells are clear. The orbits appear normal. There are no acute fractures of the calvaria or scalp swelling. Impression: No acute intracranial hemorrhage, no evidence of acute territorial infarction or other acute intracra nial disease process. ACT 112: Negative or not required by law. Electronically signed by: Jesus Melgar M.D. 06/13/2022 7:57 AM
--- NOTE | 2022-06-13 08:01 | XRay Report ---
XR chest 1V portable CLINICAL HISTORY: SEPSIS TECHNIQUE: Single frontal radiograph of the chest was obtained. Comparison: Comparison is made to chest radiograph 10/24/2020 FINDINGS: No lines and tubes are seen. Calcified aortic knob is seen. The lungs are clear. No evidence of pleur al effusion or pneumothorax. IMPRESSION: No acute abnormalities and in particular no evidence of pneumonia. ACT 112: Negative or not required by law. Electronically signed by: Jesus Melgar M.D. 06/13/2022 8:00 AM
--- NOTE | 2022-06-13 08:24 | CT Scan Report ---
CT abd pelvis wo con CLINICAL HISTORY: Diffuse abdominal pain COMPARISON STUDY: No previous studies for comparison. CT DOSE: TECHNIQUE: Standard CT of the Abdomen and Pelvis was performed without IV contrast. The patient did not receive oral contrast. A dose lowering technique was utilized adhering to the principles of SHANNAN Manuel FINDINGS: Lung base: The lung bases are clear. Heart is mildly enlarged. Abdominal cavity: There is no evidence for abdominal mass, adenopathy or ascites. Liver: The liver is homogeneous in attenuation on these limited noncontrast images.. Spleen: The spleen is homogeneous in attenuation on these limited noncontrast images. Pancreas: The pancreas is homogeneous in attenuation on these limited noncontrast images. Gall Bladder: Surgical clips are present. Adrenal glands: The adrenal glands are normal in size and attenuation on these limited noncontrast im ages. Kidneys: The kidneys are homogeneous in attenuation on these limited noncontrast images. There is no evidence for gross renal mass, calculus or hydronephrosis bilaterally. Bowel: The stomach is grossly distended with liquid and food stuff. There is mucosal thickening of th e gastric antrum and duodenal C-loop which can be seen with peptic ulcer disease. The bowel loops are otherwise normally placed within the abdomen and pelvis without evidence for dilatation or obstructi on. There is no evidence for mass lesion. There is sigmoid diverticulosis without evidence for divert iculitis. There are no inflammatory changes present. There is no evidence for free air. Bladder: There is no evidence for focal bladder wall thickening, calculus or diverticulum. : Uterus is enlarged for the patient's age with thickening of the endometrium and thickening of the cervix. Follow-up pelvic ultrasound and gynecologic evaluation is recommended. Vasculature: There is no evidence for focal aneurysmal dilatation of the abdominal aorta. Atheroscler otic calcification is present. Osseous structures: There is no acute osseous pathology. Degenerative changes are seen within the spi ne. IMPRESSION: 1. Distention of the stomach with liquid and food stuff and mild mucosal thickening of the gastric an trum and duodenal C-loop. The presence of peptic ulcer disease cannot be excluded. 2. Enlargement of the uterus with thickening of the endometrium and prominence of the cervix. Follow- up pelvic ultrasound and gynecologic evaluation is recommended. 3. Diverticulosis without evidence for diverticulitis. 4. Additional nonacute findings are delineated above. ACT 112: Positive. There are findings on this exam that require communication between the performing entity and the patient following Patient Test Result Information Act ([place] Act 112) guidelines. Electronically signed by: Agustín Durham M.D. 06/13/2022 8:23 AM
[2022-06-13] MEDS: ENOXAPARIN INJ 40 MG/0.4 ML SYR SQ SCH (08:38)
[2022-06-13] MEDS ORDERED: PANTOprazole 40 MG TAB PO SCH (09:00)
[2022-06-13] MEDS ORDERED: predniSONE 10 MG TABLET PO SCH (09:00)
[2022-06-13] MEDS ORDERED: POTASSIUM CHLORIDE 20 MEQ/15 ML UDC PO STA (10:38)
--- NOTE | 2022-06-13 11:39 | XRay Report ---
XR foot LT min 3V routine CLINICAL HISTORY: pain TECHNIQUE: 3 views of the left foot were obtained. Comparison: None available at the time of this dictation. FINDINGS: No fractures are present. Mild degenerative changes are seen. There is a tiny plantar enthesophyte. N o soft tissue abnormality is seen. Fixation hardware is partially seen in the medial and lateral mall eoli. IMPRESSION: No evidence of acute bony injury in the foot. ACT 112: Negative or not required by law. Electronically signed by: Jesus Melgar M.D. 06/13/2022 11:38 AM
--- NOTE | 2022-06-13 11:40 | XRay Report ---
XR ankle LT min 3V routine CLINICAL HISTORY: Left ankle pain. COMPARISON STUDY: None. FINDINGS: Prior internal fixation of a bimalleolar left ankle fracture with cortical plates and screw s. The hardware appears intact. There is mild periprosthetic lucency at the medial malleolus screw. I n addition, the medial malleolus screw is not well seated with up to 5 mm of proximal retraction from the cortex. Therefore, this raises the possibility of loosening. No acute fracture or dislocation wi thin the left ankle. There is mild soft tissue swelling. Small plantar and posterior calcaneal spurs are noted. Mild vascular calcifications are present. IMPRESSION: 1. No acute fracture or dislocation of the left ankle. 2. Mild diffuse soft tissue swelling. 3. Prior internal fixation of an old, healed bimalleolar fracture. The hardware appears intact. Howev er, there is mild periprosthetic lucency at the medial malleolus screw which demonstrates up to 5 mm of proximal retraction from the cortex. This raises the possibility of loosening. ACT 112: Negative or not required by law. Electronically signed by: Andrea Traylor M.D. 06/13/2022 11:39 AM
[2022-06-13] MEDS: SODIUM CHLORIDE 0.9% 1000ML 1,000 ML IV SCH (11:46)
--- NOTE | 2022-06-13 12:53 | Gastrointestinal Consultation ---
Date of Consultation June 13, 2022 Assessment & Plan (1) Vomiting: - NPO - Start short term scheduled Reglan q6h until 06/14/22 - IV PPI BID - If recurrent episode of vomiting, recommend NG tube to intermittent suction - EGD 06/14/22 - No NSAIDs Thank you for allowing us to participate in the care of this patient. Please call with any acute changes, questions or concerns. Please see addendum below with additional recommendation from my supervising physician. Supervising Physician Co-Signing Physician Notes I saw and evaluated the patient. We were consulted for evaluation of gastric distention and vomiting. The patient had presented yesterday to the emergency room and was admitted to the hospitalist service. The patient denies having nausea or abdominal discomfort this afternoon. She is on several medications due to her history of rheumatoid arthritis. Physical examination Pleasant appearing female in no obvious distress No abdominal distention noted Impression: Patient with gastric distention noted on admission CT scan, would recommend that the patient be n.p.o. today and be given Reglan every 4-6 hours to help with GI motility. We will also recommend that she be placed on to a Protonix drip until upper endoscopy may be performed. History of Present Illness Reason for Consultation: nausea/vomiting Requesting Physician: Yoshi Attending Physician: Aramis Belle MD History of Present Illness 76 year old female with history of lumbar spinal stenosis, dementia, GERD, anxiety, HTN, dyslipidemia, insomnia, rheumatoid arthritis and others below admitted w/ cellulitis - GI asked to evaluate for abnormal CT scan and vomiting. Pt was seen and evlauated, chart reviewed. She is sitting OOB in chair, holding basin and notes she vomited after taking some PO medications. She has a lunch try but notes she is not eating as she has an upset stomach. She endorses some nausea at present. Denies abd pain. Prior to this episode she notes she was feeling well - denies any issues with pain, nausea/vomiting or appetite prior. She does have some chronic GERD, burping/belching. + ASA + NSAIDs + Prednisone CTAP 2021: 1. Distention of the stomach with liquid and food stuff and mild mucosal thickening of the gastric antrum and duodenal C-loop. The presence of peptic ulcer disease cannot be excluded. 2. Enlargement of the uterus with thickening of the endometrium and prominence of the cervix. Follow-up pelvic ultrasound and gynecologic evaluation is recommended. 3. Diverticulosis without evidence for diverticulitis. 4. Additional nonacute findings are delineated above. No previous EGD Had ERCP last year for treatment of sludge Colonosocpy in 2015 Allergies Allergy/AdvReac Type Severity Reaction Status Date / Time No Known Drug Allergies Allergy NKDA Verified 06/13/22 01:20 Home Medications Medication Instructions Recorded Confirmed Type aspirin 81 mg tablet,delayed 81 mg PO DAILY #30 tabs 05/29/19 06/13/22 Rx release folic acid 1 mg tablet 3 mg PO DAILY #90 tabs 06/01/19 06/13/22 Rx prednisone 5 mg tablet 5 mg PO DAILY #90 tabs 06/09/19 06/13/22 Rx denosumab 60 mg/mL subcutaneous 60 mg subcut .COMPLEX #1 mL 03/21/20 06/13/22 Rx syringe sulfasalazine 500 mg tablet 1 gm PO DAILY 07/21/20 06/13/22 History (Azulfidine) donepezil 10 mg tablet 10 mg PO DAILY #30 tabs 04/15/21 06/13/22 Rx baclofen 10 mg tablet 5 mg PO BID #60 tabs 09/02/21 06/13/22 Rx methotrexate sodium 5 mg tablet 30 mg PO .COMPLEX #30 tabs 10/16/21 06/13/22 Rx atorvastatin 20 mg tablet 20 mg PO DAILY #90 tabs 12/16/21 06/13/22 Rx cyanocobalamin (vitamin B-12) 1,000 mcg PO DAILY #100 tabs 01/03/22 06/13/22 Rx 1,000 mcg tablet buspirone 10 mg tablet 10 mg PO BID #180 tabs 02/15/22 06/13/22 Rx gabapentin 100 mg capsule 400 mg PO HS 03/12/22 06/13/22 History mometasone 0.1 % topical solution 1 applic topical DAILY PRN skin 03/12/22 06/13/22 Rx irritation #60 mL ropinirole 0.25 mg tablet See Rx Instructions PO .COMPLEX 03/12/22 06/13/22 History amlodipine 5 mg tablet 5 mg PO DAILY #90 tabs 03/29/22 06/13/22 Rx omeprazole 20 mg capsule,delayed 20 mg PO DAILY #90 caps 03/29/22 06/13/22 Rx release acetaminophen 325 mg tablet 650 mg PO QID PRN Pain 05/10/22 06/13/22 History (Tylenol) duloxetine 30 mg capsule,delayed 30 mg PO DAILY #90 caps 05/10/22 06/13/22 Rx release tramadol 50 mg tablet 50 mg PO Q8H PRN pain #90 tabs 06/06/22 06/13/22 Rx Patient History Medical History Acid reflux disease Balance problems Current chronic use of systemic steroids Degenerative cervical spinal stenosis Dementia Depression Diminished pulses in lower extremity Gait abnormality Generalized anxiety disorder High risk medication use Hyperlipidemia Hypertension Insomnia Lumbar radiculopathy Nocturia Open fracture of right elbow with routine healing Osteoporosis Pneumonia due to COVID-19 virus Rheumatoid arthritis Spinal stenosis, lumbar region with neurogenic claudication TMJ arthritis Urinary incontinence Surgical History H/O colonoscopy H/O esophagogastroduodenoscopy H/O left wrist surgery History of ankle surgery bilateral History of appendectomy History of tubal ligation Hx of cholecystectomy Hx of tonsillectomy Status post hip surgery March 2019-right Family History Father Diabetes Mother Stroke syndrome Uterine cancer Brother Malignant neoplasm of body of pancreas Malignant Pancreatic Neoplasm Colorectal cancer Sister Malignant neoplasm of body of pancreas Malignant Pancreatic Neoplasm Myocardial infarction Denies family history of Ovarian cancer Prostate cancer Breast cancer Social History Smoking Status: Former smoker Tobacco Type: Cigarettes Age Started Using Tobacco: 14; Age Quit Using Tobacco: 18; packs per day: 0.5; Second Hand Exposure: No; Hx Alcohol Use: No Hx Substance Use: No Preferred Language: [place] Communication Ability: Effective Visual Impairment: Partially Limited Hearing Ability: Hard of Hearing Field Radio Operator Required: No Beliefs That Will Affect Care: None marital status: Current Living Situation: Spouse current occupational status: retired 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 How many Children do You have: 3 Other Information That Helps Us Care for You: No Feels Safe at Home: Yes Safety Concerns: Feels Safe At This Time Childhood Exposure to Second-Hand Smoke: Yes caffeine: Yes (tea) Dental Care, Regularly: Yes Physical Activity Frequency: 1-2 Times per Week Physical Activity Frequency Comment: gardening Seatbelt Use: never Sunscreen Use: No Do you think of yourself as: straight/heterosexual Assistive Devices: Walker Review of Systems Review of Systems: All systems reviewed & are unremarkable except as noted in HPI & below Physical Exam Constitutional: WD/WN, vitals as above Neck: trachea midline Cardiovascular: RRR, no murmur, no edema Gastrointestinal (Abdomen): normal bowel sounds, soft, nontender, no hepatosplenomegaly Skin: no rashes, warm and dry Results & Data ([facility]) Vital Signs (Past 12 Hours) Vital Signs Temp Pulse Pulse Resp BP BP Pulse Ox 06/13/22 11:46 78 06/13/22 09:36 06/13/22 09:30 37.3 C 119 H 19 135/82 92 06/13/22 07:46 87 18 184/130 H 95 06/13/22 06:02 93 H 17 06/13/22 06:02 181/99 H 06/13/22 06:00 98 H 25 H 06/13/22 05:30 84 22 06/13/22 05:30 198/105 H 06/13/22 05:00 86 15 177/97 H 93 06/13/22 04:30 77 16 190/92 H 92 06/13/22 04:00 79 17 198/96 H 94 06/13/22 03:30 81 21 176/99 H 94 06/13/22 03:00 76 17 202/99 H 95 06/13/22 02:30 82 18 187/99 H 94 06/13/22 02:00 84 19 181/99 H 94 06/13/22 01:00 85 17 209/102 H 96 O2 Del Method 06/13/22 11:46 06/13/22 09:36 Room Air 06/13/22 09:30 Room Air 06/13/22 07:46 06/13/22 06:02 06/13/22 06:02 06/13/22 06:00 06/13/22 05:30 06/13/22 05:30 06/13/22 05:00 Room Air 06/13/22 04:30 Room Air 06/13/22 04:00 Room Air 06/13/22 03:30 Room Air 06/13/22 03:00 Room Air 06/13/22 02:30 Room Air 06/13/22 02:00 Room Air 06/13/22 01:00 Room Air Laboratory Results 06/13/22 06/13/22 06/13/22 Range/Units 10:49 01:22 00:24 WBC (4.8-10.8) K/ul RBC (3.93-5.22) M/uL Hgb (12.0-16.0) g/dl Hct (34.1-44.9) % MCV (80.0-100.0) fL MCH (25.0-34.0) pg MCHC (32.0-36.0) g/dL RDW Std Deviation (36.4-46.3) fL RDW Coeff of [place] (11.5-14.5) % Plt Count (130-400) K/uL MPV (9.4-12.3) fL Immature Gran % (Auto) % Neut % (Auto) % Lymph % (Auto) % [place] % (Auto) % Eos % (Auto) % Baso % (Auto) % Neut # (Auto) (1.4-6.5) K/uL Lymph # (Auto) (1.2-3.4) K/uL [place] # (Auto) (0.24-0.82) K/uL Eos # (Auto) (0-0.50) K/uL Baso # (Auto) (0-0.2) K/uL Immature Gran # (Auto) (0.00-0.02) K/uL ESR (0-30) mm/hr PT (9.0-12.0) Seconds INR (0.9-1.1) APTT (21.0-31.0) Seconds PTT Ratio Sodium Potassium Chloride Carbon Dioxide Anion Gap BUN Creatinine Est Cr Clr Drug Dosing Est GFR ( Amer) Est GFR (Non-Af Amer) BUN/Creatinine Ratio Glucose Lactate (0.4-2.0) mmol/L Uric Acid 4.5 (2.6-7.2) mg/dl Calcium Magnesium Total Bilirubin AST ALT Alkaline Phosphatase Troponin I High Sens C-Reactive Protein Total Protein Albumin Globulin Albumin/Globulin Ratio Procalcitonin (0-0.5) ng/ml Urine Color Urine Appearance (Clear) Urine pH (4.5-7.5) Ur Specific [place] (1.000-1.030) Urine Protein (Negative) Urine Glucose (UA) (Negative) Urine Ketones (Negative) Urine Blood (Negative) Urine Nitrite (Negative) Urine Bilirubin (Negative) Urine Urobilinogen (Negative) Ur Leukocyte Esterase (Negative) Urine WBC (Auto) (0-5) /hpf Urine RBC (Auto) (0-4) /hpf U Hyaline Cast (Auto) (0-5) /lpf U Epithel Cells (Auto) (0-5) /lpf Urine Bacteria (Auto) (Negative) Nasal Screen MRSA (PCR) Negative (Negative) SARS-CoV-2, RNA, NAAT NEGATIVE (NEGATIVE) 06/13/22 06/13/22 06/12/22 Range/Units 00:24 00:00 22:55 WBC (4.8-10.8) K/ul RBC (3.93-5.22) M/uL Hgb (12.0-16.0) g/dl Hct (34.1-44.9) % MCV (80.0-100.0) fL MCH (25.0-34.0) pg MCHC (32.0-36.0) g/dL RDW Std Deviation (36.4-46.3) fL RDW Coeff of [place] (11.5-14.5) % Plt Count (130-400) K/uL MPV (9.4-12.3) fL Immature Gran % (Auto) % Neut % (Auto) % Lymph % (Auto) % [place] % (Auto) % Eos % (Auto) % Baso % (Auto) % Neut # (Auto) (1.4-6.5) K/uL Lymph # (Auto) (1.2-3.4) K/uL [place] # (Auto) (0.24-0.82) K/uL Eos # (Auto) (0-0.50) K/uL Baso # (Auto) (0-0.2) K/uL Immature Gran # (Auto) (0.00-0.02) K/uL ESR (0-30) mm/hr PT (9.0-12.0) Seconds INR (0.9-1.1) APTT (21.0-31.0) Seconds PTT Ratio Sodium 139 Potassium 3.2 L Chloride 107 Carbon Dioxide 24 Anion Gap 8 BUN 14 Creatinine 0.71 Est Cr Clr Drug Dosing 59.4 Est GFR ( Amer) 94.6 Est GFR (Non-Af Amer) 81.6 BUN/Creatinine Ratio 19.7 Glucose 87 Lactate 0.9 (0.4-2.0) mmol/L Uric Acid (2.6-7.2) mg/dl Calcium 8.4 L Magnesium 2.1 Total Bilirubin 0.8 AST 24 ALT 18 Alkaline Phosphatase 69 Troponin I High Sens 11.0 C-Reactive Protein < 0.50 Total Protein 6.3 Albumin 3.8 Globulin 2.5 Albumin/Globulin Ratio 1.5 Procalcitonin (0-0.5) ng/ml Urine Color Yellow Urine Appearance Clear (Clear) Urine pH 8.0 H (4.5-7.5) Ur Specific [place] 1.014 (1.000-1.030) Urine Protein Trace H (Negative) Urine Glucose (UA) Negative (Negative) Urine Ketones 1+ H (Negative) Urine Blood 2+ H (Negative) Urine Nitrite Negative (Negative) Urine Bilirubin Negative (Negative) Urine Urobilinogen Negative (Negative) Ur Leukocyte Esterase Negative (Negative) Urine WBC (Auto) 1-5 (0-5) /hpf Urine RBC (Auto) 10-30 H (0-4) /hpf U Hyaline Cast (Auto) 0 (0-5) /lpf U Epithel Cells (Auto) 20-30 H (0-5) /lpf Urine Bacteria (Auto) Negative (Negative) Nasal Screen MRSA (PCR) (Negative) SARS-CoV-2, RNA, NAAT (NEGATIVE) 06/12/22 06/12/22 06/12/22 Range/Units 22:45 22:15 22:15 WBC (4.8-10.8) K/ul RBC (3.93-5.22) M/uL Hgb (12.0-16.0) g/dl Hct (34.1-44.9) % MCV (80.0-100.0) fL MCH (25.0-34.0) pg MCHC (32.0-36.0) g/dL RDW Std Deviation (36.4-46.3) fL RDW Coeff of [place] (11.5-14.5) % Plt Count (130-400) K/uL MPV (9.4-12.3) fL Immature Gran % (Auto) % Neut % (Auto) % Lymph % (Auto) % [place] % (Auto) % Eos % (Auto) % Baso % (Auto) % Neut # (Auto) (1.4-6.5) K/uL Lymph # (Auto) (1.2-3.4) K/uL [place] # (Auto) (0.24-0.82) K/uL Eos # (Auto) (0-0.50) K/uL Baso # (Auto) (0-0.2) K/uL Immature Gran # (Auto) (0.00-0.02) K/uL ESR (0-30) mm/hr PT 10.6 (9.0-12.0) Seconds INR 1.0 (0.9-1.1) APTT 20.4 L (21.0-31.0) Seconds PTT Ratio 0.7 Sodium Cancelled Potassium Cancelled Chloride Cancelled Carbon Dioxide Cancelled Anion Gap Cancelled BUN Cancelled Creatinine Cancelled Est Cr Clr Drug Dosing Cancelled Est GFR ( Amer) Cancelled Est GFR (Non-Af Amer) Cancelled BUN/Creatinine Ratio Cancelled Glucose Cancelled Lactate (0.4-2.0) mmol/L Uric Acid (2.6-7.2) mg/dl Calcium Cancelled Magnesium Cancelled Total Bilirubin Cancelled AST Cancelled ALT Cancelled Alkaline Phosphatase Cancelled Troponin I High Sens Cancelled C-Reactive Protein Cancelled Total Protein Cancelled Albumin Cancelled Globulin Cancelled Albumin/Globulin Ratio Cancelled Procalcitonin < 0.05 (0-0.5) ng/ml Urine Color Urine Appearance (Clear) Urine pH (4.5-7.5) Ur Specific [place] (1.000-1.030) Urine Protein (Negative) Urine Glucose (UA) (Negative) Urine Ketones (Negative) Urine Blood (Negative) Urine Nitrite (Negative) Urine Bilirubin (Negative) Urine Urobilinogen (Negative) Ur Leukocyte Esterase (Negative) Urine WBC (Auto) (0-5) /hpf Urine RBC (Auto) (0-4) /hpf U Hyaline Cast (Auto) (0-5) /lpf U Epithel Cells (Auto) (0-5) /lpf Urine Bacteria (Auto) (Negative) Nasal Screen MRSA (PCR) (Negative) SARS-CoV-2, RNA, NAAT (NEGATIVE) 06/12/22 06/12/22 Range/Units 22:15 22:15 WBC 8.97 (4.8-10.8) K/ul RBC 3.86 L (3.93-5.22) M/uL Hgb 13.0 (12.0-16.0) g/dl Hct 39.4 (34.1-44.9) % MCV 102.1 H (80.0-100.0) fL MCH 33.7 (25.0-34.0) pg MCHC 33.0 (32.0-36.0) g/dL RDW Std Deviation 56.8 H (36.4-46.3) fL RDW Coeff of [place] 15.4 H (11.5-14.5) % Plt Count 212 (130-400) K/uL MPV 8.9 L (9.4-12.3) fL Immature Gran % (Auto) 0.4 % Neut % (Auto) 71.9 % Lymph % (Auto) 19.1 % [place] % (Auto) 6.9 % Eos % (Auto) 1.0 % Baso % (Auto) 0.7 % Neut # (Auto) 6.45 (1.4-6.5) K/uL Lymph # (Auto) 1.71 (1.2-3.4) K/uL [place] # (Auto) 0.62 (0.24-0.82) K/uL Eos # (Auto) 0.09 (0-0.50) K/uL Baso # (Auto) 0.06 (0-0.2) K/uL Immature Gran # (Auto) 0.04 H (0.00-0.02) K/uL ESR 34 H (0-30) mm/hr PT (9.0-12.0) Seconds INR (0.9-1.1) APTT (21.0-31.0) Seconds PTT Ratio Sodium Potassium Chloride Carbon Dioxide Anion Gap BUN Creatinine Est Cr Clr Drug Dosing Est GFR ( Amer) Est GFR (Non-Af Amer) BUN/Creatinine Ratio Glucose Lactate (0.4-2.0) mmol/L Uric Acid (2.6-7.2) mg/dl Calcium Magnesium Total Bilirubin AST ALT Alkaline Phosphatase Troponin I High Sens C-Reactive Protein Total Protein Albumin Globulin Albumin/Globulin Ratio Procalcitonin (0-0.5) ng/ml Urine Color Urine Appearance (Clear) Urine pH (4.5-7.5) Ur Specific [place] (1.000-1.030) Urine Protein (Negative) Urine Glucose (UA) (Negative) Urine Ketones (Negative) Urine Blood (Negative) Urine Nitrite (Negative) Urine Bilirubin (Negative) Urine Urobilinogen (Negative) Ur Leukocyte Esterase (Negative) Urine WBC (Auto) (0-5) /hpf Urine RBC (Auto) (0-4) /hpf U Hyaline Cast (Auto) (0-5) /lpf U Epithel Cells (Auto) (0-5) /lpf Urine Bacteria (Auto) (Negative) Nasal Screen MRSA (PCR) (Negative) SARS-CoV-2, RNA, NAAT (NEGATIVE)
[2022-06-13] MEDS: POTASSIUM CHLORIDE / WTR 10 MEQ/100 ML PLCT IV SCH ×2 (13:03→14:28)
[2022-06-13] MEDS ORDERED: VANCOMYCIN HCL 1,500 MG in SODIUM CHLORIDE 0.9% 500 ML IV SCH (14:00)
[2022-06-13] MEDS: PANTOprazole 40 MG in SYRINGE 0 ML IV SCH ×2 (14:29→21:11)
[2022-06-13] MEDS: METOCLOPRAMIDE HCL INJ 5 MG/ML 2 ML VIAL IV SCH ×2 (14:39→21:09)
--- NOTE | 2022-06-13 15:43 | History & Physical Bridge Note ---
Date of Service June 13, 2022 History & Physical Bridge Note I have examined the patient, reviewed the History & Physical and in the interval since the performance of the History & Physical I have noted the following changes of clinical significance: Gastric distention on CT scan noted, 1 vomitGI consulted; plan for EGD in a.m. X-ray left foot, radiolucency notedOrtho consult Cellulitis much better, stopped vancomycinlow index of suspicion for MRSA
--- NOTE | 2022-06-13 16:08 | Orthopedic Consultation ---
Date of Consultation June 13, 2022 Assessment & Plan (1) Fixation hardware in lower extremity: 76-year-old female with history of ORIF of her left ankle sometime ago of which she cannot remember the date. Patient has a noted medial malleolar screw that is slowly backing out that measures up to 4.9 mm. Patient states that she has not had much in the way of discomfort from her ORIF and has no general complaints about the medial malleolus at this time. She is more concerned about her back surgery that was supposed to happen in the near future. We can treat this nonoperatively at this time. Continue IV antibiotics for her cellulitis. Continue elevation of the left lower extremity. She can be weightbearing as tolerated on the left lower extremity. When her cellulitis clears, if she is having increasing pain over the medial malleolus, patient can follow-up in our office as an outpatient to address that problem. Thank you for this consult. Supervising Physician Co-Signing Physician Notes Patient seen and examined. Radiographs reviewed. Agree with treatment plan as illustrated above. We will follow the patient as an outpatient after cellulitis resolves to schedule removal of hardware as necessary. Thank you for the opportunity consult in the care of this patient. Beto Ge DO. History of Present Illness Reason for Consultation: Left ankle hardware irregularity Attending Physician: Aramis Belle MD History of Present Illness Patient is a 76-year-old female admitted to the hospital with cellulitis of her left lower extremity. Patient was having increased redness of her left lower extremity over the last several weeks which she continued to worsen. She states that she had a moderate degree of swelling of her left foot. The pain began to worsen. Patient states that she is a patient of Dr. Peres and had upcoming surgery scheduled. She apparently was having some urinary incontinence and also some increase in her low back pain. She came into the emergency room to be seen and was admitted for further care. X-rays were taken of her left foot and ankle. Patient has had a previous ORIF of the left ankle quite some time ago. It was noted on the x-ray of the ankle that there was a lucency over the medial malleolus and we have been asked to see her for this. Allergies Allergy/AdvReac Type Severity Reaction Status Date / Time No Known Drug Allergies Allergy NKDA Verified 06/13/22 01:20 Home Medications Medication Instructions Recorded Confirmed Type aspirin 81 mg tablet,delayed 81 mg PO DAILY #30 tabs 05/29/19 06/13/22 Rx release folic acid 1 mg tablet 3 mg PO DAILY #90 tabs 06/01/19 06/13/22 Rx prednisone 5 mg tablet 5 mg PO DAILY #90 tabs 06/09/19 06/13/22 Rx denosumab 60 mg/mL subcutaneous 60 mg subcut .COMPLEX #1 mL 03/21/20 06/13/22 Rx syringe sulfasalazine 500 mg tablet 1 gm PO DAILY 07/21/20 06/13/22 History (Azulfidine) donepezil 10 mg tablet 10 mg PO DAILY #30 tabs 04/15/21 06/13/22 Rx baclofen 10 mg tablet 5 mg PO BID #60 tabs 09/02/21 06/13/22 Rx methotrexate sodium 5 mg tablet 30 mg PO .COMPLEX #30 tabs 10/16/21 06/13/22 Rx atorvastatin 20 mg tablet 20 mg PO DAILY #90 tabs 12/16/21 06/13/22 Rx cyanocobalamin (vitamin B-12) 1,000 mcg PO DAILY #100 tabs 01/03/22 06/13/22 Rx 1,000 mcg tablet buspirone 10 mg tablet 10 mg PO BID #180 tabs 02/15/22 06/13/22 Rx gabapentin 100 mg capsule 400 mg PO HS 03/12/22 06/13/22 History mometasone 0.1 % topical solution 1 applic topical DAILY PRN skin 03/12/22 06/13/22 Rx irritation #60 mL ropinirole 0.25 mg tablet See Rx Instructions PO .COMPLEX 03/12/22 06/13/22 History amlodipine 5 mg tablet 5 mg PO DAILY #90 tabs 03/29/22 06/13/22 Rx omeprazole 20 mg capsule,delayed 20 mg PO DAILY #90 caps 03/29/22 06/13/22 Rx release acetaminophen 325 mg tablet 650 mg PO QID PRN Pain 05/10/22 06/13/22 History (Tylenol) duloxetine 30 mg capsule,delayed 30 mg PO DAILY #90 caps 05/10/22 06/13/22 Rx release tramadol 50 mg tablet 50 mg PO Q8H PRN pain #90 tabs 06/06/22 06/13/22 Rx Patient History Medical History Acid reflux disease Balance problems Current chronic use of systemic steroids Degenerative cervical spinal stenosis Dementia Depression Diminished pulses in lower extremity Gait abnormality Generalized anxiety disorder High risk medication use Hyperlipidemia Hypertension Insomnia Lumbar radiculopathy Nocturia Open fracture of right elbow with routine healing Osteoporosis Pneumonia due to COVID-19 virus Rheumatoid arthritis Spinal stenosis, lumbar region with neurogenic claudication TMJ arthritis Urinary incontinence Surgical History H/O colonoscopy H/O esophagogastroduodenoscopy H/O left wrist surgery History of ankle surgery bilateral History of appendectomy History of tubal ligation Hx of cholecystectomy Hx of tonsillectomy Status post hip surgery March 2019-right Family History Father Diabetes Mother Stroke syndrome Uterine cancer Brother Malignant neoplasm of body of pancreas Malignant Pancreatic Neoplasm Colorectal cancer Sister Malignant neoplasm of body of pancreas Malignant Pancreatic Neoplasm Myocardial infarction Denies family history of Ovarian cancer Prostate cancer Breast cancer Social History Smoking Status: Former smoker Tobacco Type: Cigarettes Age Started Using Tobacco: 14; Age Quit Using Tobacco: 18; packs per day: 0.5; Second Hand Exposure: No; Hx Alcohol Use: No Hx Substance Use: No Preferred Language: Tongan Communication Ability: Effective Visual Impairment: Partially Limited Hearing Ability: Hard of Hearing Rubber And Pounder Required: No Beliefs That Will Affect Care: None marital status: Current Living Situation: Spouse current occupational status: retired 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 She is pleasant cooperative. No acute distress. Oriented to person and place. On examination of her left lower extremity, she has a mild amount of cellulitis residing in the dorsum of her left foot. This goes around the ankle itself to the posterior aspect of the ankle. She does not have much in the way of erythema traveling up the leg at this time. She is nontender on palpation over the tibia and fibula however she does begin to have some mild discomfort on palpation of the dorsum of the foot and over the medial and lateral malleoli. She states that the pain is mild at best. Review of the x-ray of the medial malleolus showed that a cannulated screw was slowly backing out of the bone. The bone itself looked benign and no obvious infection. I cannot appreciate feeling the screw at this time on palpation. She has well-healed scars on both sides from her previous ORIF. She has good range of motion of her left ankle at this time without discomfort. Capillary refill is less than 2 seconds. Sensation is intact. Results & Data ([facility]) Vital Signs (Past 12 Hours) Vital Signs Temp Pulse Pulse Pulse Resp BP BP 06/13/22 15:44 36.8 C 89 20 175/95 H 06/13/22 14:55 79 06/13/22 11:46 78 06/13/22 09:36 06/13/22 09:30 37.3 C 119 H 19 06/13/22 07:46 87 18 06/13/22 06:02 93 H 17 06/13/22 06:02 181/99 H 06/13/22 06:00 98 H 25 H 06/13/22 05:30 84 22 06/13/22 05:30 198/105 H 06/13/22 05:00 86 15 177/97 H 06/13/22 04:30 77 16 190/92 H BP Pulse Ox O2 Del Method 06/13/22 15:44 96 Room Air 06/13/22 14:55 06/13/22 11:46 06/13/22 09:36 Room Air 06/13/22 09:30 135/82 92 Room Air 06/13/22 07:46 184/130 H 95 06/13/22 06:02 06/13/22 06:02 06/13/22 06:00 06/13/22 05:30 06/13/22 05:30 06/13/22 05:00 93 Room Air 06/13/22 04:30 92 Room Air Laboratory Results Laboratory Results WBC 8.97 K/ul (4.8-10.8) 06/12/22 22:15 RBC 3.86 M/uL (3.93-5.22) L 06/12/22 22:15 Hgb 13.0 g/dl (12.0-16.0) 06/12/22 22:15 Hct 39.4 % (34.1-44.9) 06/12/22 22:15 MCV 102.1 fL (80.0-100.0) H 06/12/22 22:15 MCH 33.7 pg (25.0-34.0) 06/12/22 22:15 MCHC 33.0 g/dL (32.0-36.0) 06/12/22 22:15 RDW Std Deviation 56.8 fL (36.4-46.3) H 06/12/22 22:15 RDW Coeff of [place] 15.4 % (11.5-14.5) H 06/12/22 22:15 Plt Count 212 K/uL (130-400) 06/12/22 22:15 MPV 8.9 fL (9.4-12.3) L 06/12/22 22:15 Immature Gran % (Auto) 0.4 % 06/12/22 22:15 Neut % (Auto) 71.9 % 06/12/22 22:15 Lymph % (Auto) 19.1 % 06/12/22 22:15 [place] % (Auto) 6.9 % 06/12/22 22:15 Eos % (Auto) 1.0 % 06/12/22 22:15 Baso % (Auto) 0.7 % 06/12/22 22:15 Neut # (Auto) 6.45 K/uL (1.4-6.5) 06/12/22 22:15 Lymph # (Auto) 1.71 K/uL (1.2-3.4) 06/12/22 22:15 [place] # (Auto) 0.62 K/uL (0.24-0.82) 06/12/22 22:15 Eos # (Auto) 0.09 K/uL (0-0.50) 06/12/22 22:15 Baso # (Auto) 0.06 K/uL (0-0.2) 06/12/22 22:15 Immature Gran # (Auto) 0.04 K/uL (0.00-0.02) H 06/12/22 22:15 ESR 34 mm/hr (0-30) H 06/12/22 22:15 PT 10.6 Seconds (9.0-12.0) 06/12/22 22:15 INR 1.0 (0.9-1.1) 06/12/22 22:15 APTT 20.4 Seconds (21.0-31.0) L 06/12/22 22:15 PTT Ratio 0.7 06/12/22 22:15 Sodium 139 mmol/L (136-145) 06/13/22 00:24 Potassium 3.2 mmol/L (3.5-5.1) L 06/13/22 00:24 Chloride 107 mmol/L (98-107) 06/13/22 00:24 Carbon Dioxide 24 mmol/L (21-32) 06/13/22 00:24 Anion Gap 8 (3-11) 06/13/22 00:24 BUN 14 mg/dl (6-23) 06/13/22 00:24 Creatinine 0.71 mg/dl (0.6-1.2) 06/13/22 00:24 Est Cr Clr Drug Dosing 59.4 ml/min 06/13/22 00:24 Est GFR ( Amer) 94.6 ml/min 06/13/22 00:24 Est GFR (Non-Af Amer) 81.6 ml/min 06/13/22 00:24 BUN/Creatinine Ratio 19.7 (10-20) 06/13/22 00:24 Glucose 87 mg/dl (70-99(Fasting)) 06/13/22 00:24 Lactate 0.9 mmol/L (0.4-2.0) 06/12/22 22:55 Uric Acid 4.5 mg/dl (2.6-7.2) 06/13/22 00:24 Calcium 8.4 mg/dl (8.5-10.1) L 06/13/22 00:24 Magnesium 2.1 mg/dl (1.7-2.4) 06/13/22 00:24 Total Bilirubin 0.8 mg/dl (0.2-1.0) 06/13/22 00:24 AST 24 U/L (13-39) 06/13/22 00:24 ALT 18 U/L (7-52) 06/13/22 00:24 Alkaline Phosphatase 69 U/L (34-104) 06/13/22 00:24 Troponin I High Sens 11.0 pg/ml (0-14) 06/13/22 00:24 C-Reactive Protein < 0.50 mg/dl (0-0.5) 06/13/22 00:24 Total Protein 6.3 gm/dl (6.0-8.3) 06/13/22 00:24 Albumin 3.8 gm/dl (3.4-5.0) 06/13/22 00:24 Globulin 2.5 gm/dl (2.5-4.0) 06/13/22 00:24 Albumin/Globulin Ratio 1.5 (0.9-2) 06/13/22 00:24 Procalcitonin < 0.05 ng/ml (0-0.5) 06/12/22 22:45 Urine Color Yellow 06/13/22 00:00 Urine Appearance Clear (Clear) 06/13/22 00:00 Urine pH 8.0 (4.5-7.5) H 06/13/22 00:00 Ur Specific [place] 1.014 (1.000-1.030) 06/13/22 00:00 Urine Protein Trace (Negative) H 06/13/22 00:00 Urine Glucose (UA) Negative (Negative) 06/13/22 00:00 Urine Ketones 1+ (Negative) H 06/13/22 00:00 Urine Blood 2+ (Negative) H 06/13/22 00:00 Urine Nitrite Negative (Negative) 06/13/22 00:00 Urine Bilirubin Negative (Negative) 06/13/22 00:00 Urine Urobilinogen Negative (Negative) 06/13/22 00:00 Ur Leukocyte Esterase Negative (Negative) 06/13/22 00:00 Urine WBC (Auto) 1-5 /hpf (0-5) 06/13/22 00:00 Urine RBC (Auto) 10-30 /hpf (0-4) H 06/13/22 00:00 U Hyaline Cast (Auto) 0 /lpf (0-5) 06/13/22 00:00 U Epithel Cells (Auto) 20-30 /lpf (0-5) H 06/13/22 00:00 Urine Bacteria (Auto) Negative (Negative) 06/13/22 00:00 Nasal Screen MRSA (PCR) Negative (Negative) 06/13/22 10:49 SARS-CoV-2, RNA, NAAT NEGATIVE (NEGATIVE) 06/13/22 01:22 Impressions . Ankle X-Ray 06/13/22 10:41 XR ankle LT min 3V routine CLINICAL HISTORY: Left ankle pain. COMPARISON STUDY: None. FINDINGS: Prior internal fixation of a bimalleolar left ankle fracture with cortical plates and screws. The hardware appears intact. There is mild periprosthetic lucency at the medial malleolus screw. In addition, the medial malleolus screw is not well seated with up to 5 mm of proximal retraction from the cortex. Therefore, this raises the possibility of loosening. No acute fracture or dislocation within the left ankle. There is mild soft tissue swelling. Small plantar and posterior calcaneal spurs are noted. Mild vascular calcifications are present. IMPRESSION: 1. No acute fracture or dislocation of the left ankle. 2. Mild diffuse soft tissue swelling. 3. Prior internal fixation of an old, healed bimalleolar fracture. The hardware appears intact. However, there is mild periprosthetic lucency at the medial malleolus screw which demonstrates up to 5 mm of proximal retraction from the cortex. This raises the possibility of loosening. ACT 112: Negative or not required by law. Electronically signed by: Andrea Traylor M.D. 06/13/2022 11:39 AM Foot X-Ray 06/13/22 10:41 XR foot LT min 3V routine CLINICAL HISTORY: pain TECHNIQUE: 3 views of the left foot were obtained. Comparison: None available at the time of this dictation. FINDINGS: No fractures are present. Mild degenerative changes are seen. There is a tiny plantar enthesophyte. No soft tissue abnormality is seen. Fixation hardware is partially seen in the medial and lateral malleoli. IMPRESSION: No evidence of acute bony injury in the foot. ACT 112: Negative or not required by law. Electronically signed by: Jesus Melgar M.D. 06/13/2022 11:38 AM
[2022-06-13] MEDS: rOPINIRole HCL 0.25 MG TABLET PO SCH ×2 (16:12→21:11)
--- NOTE | 2022-06-13 16:41 | Electrocardiogram Report ---
Test Reason : Blood Pressure : / mmHG Vent. Rate : 078 BPM Atrial Rate : 078 BPM P-R Int : 154 ms QRS Dur : 078 ms QT Int : 402 ms P-R-T Axes : 008 -21 031 degrees QTc Int : 458 ms Normal sinus rhythm Normal ECG When compared with ECG of 24-OCT-2020 13:37, Right bundle branch block is no longer Present Confirmed by Raul Hdez ([id number]) on 06/13/2022 4:41:40 PM Referred By: REFERRED SELF Confirmed By:Raul Hdez
--- NOTE | 2022-06-13 17:21 | History & Physical Bridge Note ---
Date of Service June 13, 2022 History & Physical Bridge Note Classification Control Clerk findings noted on CT scan will have to be followedcan be as outpatient
[2022-06-13] MEDS: traMADol HCL 50 MG TABLET PO PRN (17:42)
[2022-06-13] MEDS: GABAPENTIN 400 MG CAP PO SCH (21:13)
[2022-06-13] MEDS: DOCUSATE SODIUM 100 MG CAP PO SCH (21:13)
[2022-06-14] MEDS: SODIUM CHLORIDE 0.9% 1000ML 1,000 ML IV SCH ×2 (00:56→18:31)
[2022-06-14] MEDS: cefTRIAXone SODIUM 2,000 MG in DEXTROSE 5% 50 ML IV SCH (00:57)
[2022-06-14] MEDS ORDERED: cefTRIAXone SODIUM 1,000 MG in DEXTROSE 5% 50 ML IV SCH (02:00)
[2022-06-14] MEDS: METOCLOPRAMIDE HCL INJ 5 MG/ML 2 ML VIAL IV SCH ×2 (02:38→09:15)
[2022-06-14 06:42] LABS: Basophils # (auto) 0.06 K/uL (0-0.2); Basophils % (auto) 0.8 %; Eosinophils # (auto) 0.18 K/uL (0-0.50); Eosinophils % (auto) 2.5 %; Hematocrit (blood only) 35.8 % (34.1-44.9); Hemoglobin 12.2 g/dl (12.0-16.0); Immature Granulocytes # (auto) 0.04 K/uL (0.00-0.02); Immature Granulocytes % (auto) 0.6 %; Lymphocytes # (auto) 1.72 K/uL (1.2-3.4); Lymphocytes % (auto) 24.1 %; Mean Corpuscular Hemoglobin 34.1 pg (25.0-34.0); Mean Corpuscular Hgb Conc 34.1 g/dL (32.0-36.0); Monocytes # (auto) 0.71 K/uL (0.24-0.82); Neutrophils # (auto) 4.42 K/uL (1.4-6.5); Platelet Count 193 K/uL (130-400); RDW Coefficient of Variation 14.8 % (11.5-14.5); RDW Standard Deviation 52.7 fL (36.4-46.3); Red Blood Count 3.58 M/uL (3.93-5.22); White Blood Count 7.13 K/ul (4.8-10.8)
[2022-06-14 07:04] LABS: Albumin Globulin Ratio 1.4 (0.9-2); Albumin Level 3.7 gm/dl (3.4-5.0); BUN Creatinine Ratio 20.7 (10-20); Bilirubin,Total 0.5 mg/dl (0.2-1.0); C Reactive Protein 0.78 mg/dl (0-0.5); Calcium 7.9 mg/dl (8.5-10.1); Creatinine Clr Calc Pharmacy 72.7 ml/min; Est GFR (African American) 102.3 ml/min; Est GFR (Non-African American) 88.3 ml/min; Globulin 2.6 gm/dl (2.5-4.0); Phosphorus 1.6 mg/dl (2.5-4.9); Potassium 3.1 mmol/L (3.5-5.1); Total Protein 6.3 gm/dl (6.0-8.3)
--- NOTE | 2022-06-14 08:55 | Gastroenterology Progress Note ---
Date of Service June 14, 2022 Assessment & Plan (1) Vomiting: Plan: 76 year old female with history of lumbar spinal stenosis, dementia, GERD, anxiety, HTN, dyslipidemia, insomnia, rheumatoid arthritis and others below admitted w/ cellulitis - GI asked to evaluate for abnormal CT showing gastric distention, mucosal thickening and vomiting - Strict NPO for EGD 06/14/22 - Can stop Reglan - Continue IV PPI BID - No NSAIDs - Please see EGD report once completed for findings and recommendations Thank you for allowing us to participate in the care of this patient. Please call with any acute changes, questions or concerns. Please see addendum below with additional recommendation from my supervising physician. Admission and Anticipated Discharge Date Admission Date: June 13, 2022 Supervising Physician Co-Signing Physician Notes I saw and evaluated the patient. She presented with gastric distention of unclear etiology. We are planning to perform further evaluation with an upper endoscopy today. Risks have been discussed with the patient to include bleeding infection perforation pain and need for follow-up studies. Subjective Pt was seen and evaluated, chart reviewed. Feeling well. Has some mild abd discomfort but no longer feels nauseated. Has not had any episodes of vomiting since initial episode after oral potassium yesterday. Is hungry this AM. Review of Systems Review of Systems: All systems reviewed & are unremarkable except as noted in HPI & below Physical Exam Constitutional: WD/WN, vitals as above Respiratory: normal respiratory effort; no respiratory distress, no labored breathing and does not use accessory muscles Cardiovascular: Rate/Rhythm: regular rate Gastrointestinal (Abdomen): normal bowel sounds, soft, nontender, no hepatosplenomegaly Skin: no rashes, warm and dry Results & Data ([facility]) Vital Signs (Past 12 Hours) Vital Signs Temp Pulse Pulse Resp BP Pulse Ox O2 Del Method 06/14/22 07:55 37.4 C 80 16 159/79 H 98 Room Air 06/14/22 04:33 92 H 06/14/22 04:31 Room Air 06/14/22 03:26 36.7 C 80 18 155/80 H 97 Room Air Laboratory Results 06/14/22 06/14/22 06/13/22 Range/Units 06:12 06:12 10:49 WBC 7.13 (4.8-10.8) K/ul RBC 3.58 L (3.93-5.22) M/uL Hgb 12.2 (12.0-16.0) g/dl Hct 35.8 (34.1-44.9) % MCV 100.0 (80.0-100.0) fL MCH 34.1 H (25.0-34.0) pg MCHC 34.1 (32.0-36.0) g/dL RDW Std Deviation 52.7 H (36.4-46.3) fL RDW Coeff of [place] 14.8 H (11.5-14.5) % Plt Count 193 (130-400) K/uL MPV 9.0 L (9.4-12.3) fL Immature Gran % (Auto) 0.6 % Neut % (Auto) 62.0 % Lymph % (Auto) 24.1 % [place] % (Auto) 10.0 % Eos % (Auto) 2.5 % Baso % (Auto) 0.8 % Neut # (Auto) 4.42 (1.4-6.5) K/uL Lymph # (Auto) 1.72 (1.2-3.4) K/uL [place] # (Auto) 0.71 (0.24-0.82) K/uL Eos # (Auto) 0.18 (0-0.50) K/uL Baso # (Auto) 0.06 (0-0.2) K/uL Immature Gran # (Auto) 0.04 H (0.00-0.02) K/uL Sodium 140 (136-145) mmol/L Potassium 3.1 L (3.5-5.1) mmol/L Chloride 110 H (98-107) mmol/L Carbon Dioxide 22 (21-32) mmol/L Anion Gap 8 (3-11) BUN 12 (6-23) mg/dl Creatinine 0.58 L (0.6-1.2) mg/dl Est Cr Clr Drug Dosing 72.7 ml/min Est GFR ( Amer) 102.3 ml/min Est GFR (Non-Af Amer) 88.3 ml/min BUN/Creatinine Ratio 20.7 H (10-20) Glucose 83 (70-99(Fasting)) mg/dl Fasting Glucose 83 (70-99) mg/dl Calcium 7.9 L (8.5-10.1) mg/dl Phosphorus 1.6 L (2.5-4.9) mg/dl Magnesium 2.0 (1.7-2.4) mg/dl Total Bilirubin 0.5 (0.2-1.0) mg/dl AST 21 (13-39) U/L ALT 16 (7-52) U/L Alkaline Phosphatase 67 (34-104) U/L C-Reactive Protein 0.78 H (0-0.5) mg/dl Total Protein 6.3 (6.0-8.3) gm/dl Albumin 3.7 (3.4-5.0) gm/dl Globulin 2.6 (2.5-4.0) gm/dl Albumin/Globulin Ratio 1.4 (0.9-2) Nasal Screen MRSA (PCR) Negative (Negative)
[2022-06-14] MEDS: ASPIRIN 81 MG ECTAB PO SCH (09:15)
[2022-06-14] MEDS: amLODIPine BESYLATE 5 MG TAB PO SCH (09:15)
[2022-06-14] MEDS: PANTOprazole 40 MG in SYRINGE 0 ML IV SCH ×2 (09:15→21:40)
[2022-06-14] MEDS: ATORVASTATIN 20 MG TAB PO SCH (09:16)
[2022-06-14] MEDS: FOLIC ACID 1 MG TAB PO SCH (09:16)
[2022-06-14] MEDS: DONEPEZIL HCL 10 MG TAB PO SCH (09:16)
[2022-06-14] MEDS: DULoxetine HCL 30 MG CAP PO SCH (09:16)
[2022-06-14] MEDS: CYANOCOBALAMIN (B-12) 500 MCG TABLET PO SCH (09:16)
[2022-06-14] MEDS: BACLOFEN 10 MG TAB PO SCH ×2 (09:16→21:36)
[2022-06-14] MEDS: predniSONE 5 MG TAB PO SCH (09:16)
[2022-06-14] MEDS: DOCUSATE SODIUM 100 MG CAP PO SCH ×2 (09:16→21:39)
[2022-06-14] MEDS: ENOXAPARIN INJ 40 MG/0.4 ML SYR SQ SCH (09:16)
[2022-06-14] MEDS: busPIRone 5 MG TAB PO SCH ×2 (09:16→21:39)
[2022-06-14] MEDS: rOPINIRole HCL 0.25 MG TABLET PO SCH ×3 (09:16→21:37)
[2022-06-14] MEDS: sulfaSALAzine 500 MG TABLET PO SCH (09:17)
[2022-06-14] MEDS ORDERED: POTASSIUM PHOS 3 MMOL/1 ML INFUSION IV STA (09:54)
[2022-06-14] MEDS ORDERED: POTASSIUM PHOSPHATE 30 MMOL in SODIUM CHLORIDE 0.9% 500 ML IV STA (10:04)
--- NOTE | 2022-06-14 10:14 | Anesthesiology Consultation ---
Date of Service June 14, 2022 Assessment & Plan (1) Encounter for pre-operative examination: Chart Review Chart Review: Acceptable Risk for Surgery History Surgery Operation Date: 06/14/22 16:45 Proposed Procedures p Esophagogastroduodenoscopy Dr Karl Barajas, DO Height/Weight Height: 5 ft 2 in Weight: 68.9 kg Allergies Allergy/AdvReac Type Severity Reaction Status Date / Time No Known Drug Allergies Allergy NKDA Verified 06/13/22 01:20 Medications Home Medications Medication Instructions Recorded Confirmed Last Taken aspirin 81 mg tablet,delayed 81 mg PO DAILY #30 tabs 05/29/19 06/13/22 Unknown release folic acid 1 mg tablet 3 mg PO DAILY #90 tabs 06/01/19 06/13/22 Unknown prednisone 5 mg tablet 5 mg PO DAILY #90 tabs 06/09/19 06/13/22 Unknown denosumab 60 mg/mL subcutaneous 60 mg subcut .COMPLEX #1 mL 03/21/20 06/13/22 Unknown syringe sulfasalazine 500 mg tablet 1 gm PO DAILY 07/21/20 06/13/22 Unknown (Azulfidine) donepezil 10 mg tablet 10 mg PO DAILY #30 tabs 04/15/21 06/13/22 Unknown baclofen 10 mg tablet 5 mg PO BID #60 tabs 09/02/21 06/13/22 Unknown methotrexate sodium 5 mg tablet 30 mg PO .COMPLEX #30 tabs 10/16/21 06/13/22 Unknown atorvastatin 20 mg tablet 20 mg PO DAILY #90 tabs 12/16/21 06/13/22 Unknown cyanocobalamin (vitamin B-12) 1,000 mcg PO DAILY #100 tabs 01/03/22 06/13/22 Unknown 1,000 mcg tablet buspirone 10 mg tablet 10 mg PO BID #180 tabs 02/15/22 06/13/22 Unknown gabapentin 100 mg capsule 400 mg PO HS 03/12/22 06/13/22 Unknown mometasone 0.1 % topical solution 1 applic topical DAILY PRN skin 03/12/22 06/13/22 Unknown irritation #60 mL ropinirole 0.25 mg tablet See Rx Instructions PO .COMPLEX 03/12/22 06/13/22 Unknown amlodipine 5 mg tablet 5 mg PO DAILY #90 tabs 03/29/22 06/13/22 Unknown omeprazole 20 mg capsule,delayed 20 mg PO DAILY #90 caps 03/29/22 06/13/22 Unknown release acetaminophen 325 mg tablet 650 mg PO QID PRN Pain 05/10/22 06/13/22 Unknown (Tylenol) duloxetine 30 mg capsule,delayed 30 mg PO DAILY #90 caps 05/10/22 06/13/22 Unknown release tramadol 50 mg tablet 50 mg PO Q8H PRN pain #90 tabs 06/06/22 06/13/22 Unknown Active Medications Generic Name Dose Route Start Last Admin Trade Name Jose Luis PRN Reason Stop Dose Admin Amlodipine Besylate 5 mg 06/13/22 09:00 06/14/22 09:15 Amlodipine Besylate 5 Mg Tab PO 07/13/22 08:59 Not Given DAILY [facility] Aspirin 81 mg 06/13/22 09:00 06/14/22 09:15 Aspirin 81 Mg Ectab PO 07/13/22 08:59 Not Given DAILY [facility] Atorvastatin Calcium 20 mg 06/13/22 09:00 06/14/22 09:16 Atorvastatin 20 Mg Tab PO 07/13/22 08:59 Not Given DAILY JEANIE Baclofen 5 mg 06/13/22 09:00 06/14/22 09:16 Baclofen 10 Mg Tab PO 07/13/22 08:59 Not Given BID JEANIE Buspirone HCl 10 mg 06/13/22 09:00 06/14/22 09:16 Buspirone 5 Mg Tab PO 07/13/22 08:59 Not Given BID [facility] Cyanocobalamin 1,000 mcg 06/13/22 09:00 06/14/22 09:16 Cyanocobalamin (B-12) 500 Mcg Tablet PO 07/13/22 08:59 Not Given DAILY [facility] Docusate Sodium 100 mg 06/13/22 21:00 06/14/22 09:16 Docusate Sodium 100 Mg Cap PO 07/13/22 20:59 Not Given BID JEANIE Donepezil HCl 10 mg 06/13/22 09:00 06/14/22 09:16 Donepezil Hcl 10 Mg Tab PO 07/13/22 08:59 Not Given DAILY JEANIE Duloxetine HCl 30 mg 06/13/22 09:00 06/14/22 09:16 Duloxetine Hcl 30 Mg Cap PO 07/13/22 08:59 Not Given DAILY JEANIE Enoxaparin Sodium 40 mg 06/13/22 09:00 06/14/22 09:16 Enoxaparin Inj 40 Mg/0.4 Ml Syr SQ 07/13/22 08:59 40 mg DAILY JEANIE Administration Folic Acid 3 mg 06/13/22 09:00 06/14/22 09:16 Folic Acid 1 Mg Tab PO 07/13/22 08:59 Not Given DAILY JEANIE Gabapentin 400 mg 06/13/22 21:00 06/13/22 21:13 Gabapentin 400 Mg Cap PO 07/13/22 20:59 400 mg HS JEANIE Administration Ceftriaxone Sodium 2,000 mg/ 70 mls @ 100 mls/hr 06/14/22 00:00 06/14/22 01:50 Dextrose IV 06/21/22 00:00 Infused Q24H JEANIE Infusion Protocol Sodium Chloride 1,000 mls @ 50 mls/hr 06/13/22 10:45 06/14/22 00:56 Nss 1000ml IV 07/13/22 10:44 75 mls/hr .Q20H JEANIE Administration Pantoprazole Sodium 40 mg/ 10 mls @ 5 mls/min 06/13/22 12:45 06/14/22 09:15 Syringe IV 07/13/22 12:44 5 mls/min BID JEANIE Administration Metoclopramide HCl 5 mg 06/13/22 13:45 06/14/22 09:15 Metoclopramide Hcl Inj 5 Mg/Ml 2 Ml Vial IV 06/14/22 13:44 5 mg Q6H JEANIE Administration Prednisone 5 mg 06/14/22 09:00 06/14/22 09:16 Prednisone 5 Mg Tab PO 07/14/22 08:59 Not Given DAILY JEANIE Ropinirole HCl 0.25 mg 06/13/22 14:30 06/14/22 09:16 Ropinirole Hcl 0.25 Mg Tablet PO 07/13/22 14:29 Not Given BID@0900,1400 JEANIE Ropinirole HCl 0.5 mg 06/13/22 21:00 06/13/22 21:11 Ropinirole Hcl 0.25 Mg Tablet PO 07/13/22 20:59 0.5 mg HS JEANIE Administration Sulfasalazine 1,000 mg 06/13/22 09:00 06/14/22 09:17 Sulfasalazine 500 Mg Tablet PO 07/13/22 08:59 Not Given DAILY JEANIE Tramadol HCl 50 mg 06/13/22 06:01 06/13/22 17:42 Tramadol Hcl 50 Mg Tablet PO 07/13/22 06:00 50 mg Q8H PRN Administration Moderate Pain Past Medical History Medical History Acid reflux disease Balance problems Current chronic use of systemic steroids Degenerative cervical spinal stenosis Dementia Depression Diminished pulses in lower extremity Gait abnormality Generalized anxiety disorder High risk medication use Hyperlipidemia Hypertension Insomnia Lumbar radiculopathy Nocturia Open fracture of right elbow with routine healing Osteoporosis Pneumonia due to COVID-19 virus Rheumatoid arthritis Spinal stenosis, lumbar region with neurogenic claudication TMJ arthritis Urinary incontinence Past Family History Family History Father Diabetes Mother Stroke syndrome Uterine cancer Brother Malignant neoplasm of body of pancreas Malignant Pancreatic Neoplasm Colorectal cancer Sister Malignant neoplasm of body of pancreas Malignant Pancreatic Neoplasm Myocardial infarction Denies family history of Ovarian cancer Prostate cancer Breast cancer Past Surgical History Surgical History H/O colonoscopy H/O esophagogastroduodenoscopy H/O left wrist surgery History of ankle surgery bilateral History of appendectomy History of tubal ligation Hx of cholecystectomy Hx of tonsillectomy Status post hip surgery March 2019-right Social History Smoking Status: Former smoker Hx Alcohol Use: No Hx Substance Use: No substance use type: does not use Physical Exam Vital Signs Last Vital Signs Temp 37.4 C 06/14/22 07:55 Pulse 81 06/14/22 10:01 Resp 16 06/14/22 07:55 BP 159/79 H 06/14/22 07:55 Pulse Ox 98 06/14/22 07:55 O2 Del Method 06/14/22 07:55 Testing Laboratory Results 06/14/22 06:12 06/14/22 06:12 PT 10.6 Seconds (9.0-12.0) 06/12/22 22:15 INR 1.0 (0.9-1.1) 06/12/22 22:15 APTT 20.4 Seconds (21.0-31.0) L 06/12/22 22:15 Urine Color Yellow 06/13/22 00:00 Urine Appearance Clear (Clear) 06/13/22 00:00 Urine pH 8.0 (4.5-7.5) H 06/13/22 00:00 Ur Specific Gibbs 1.014 (1.000-1.030) 06/13/22 00:00 Urine Protein Trace (Negative) H 06/13/22 00:00 Urine Glucose (UA) Negative (Negative) 06/13/22 00:00 Urine Ketones 1+ (Negative) H 06/13/22 00:00 Urine Nitrite Negative (Negative) 06/13/22 00:00 Ur Leukocyte Esterase Negative (Negative) 06/13/22 00:00 Urine WBC (Auto) 1-5 /hpf (0-5) 06/13/22 00:00 Urine RBC (Auto) 10-30 /hpf (0-4) H 06/13/22 00:00 U Hyaline Cast (Auto) 0 /lpf (0-5) 06/13/22 00:00 U Epithel Cells (Auto) 20-30 /lpf (0-5) H 06/13/22 00:00 Urine Bacteria (Auto) Negative (Negative) 06/13/22 00:00 06/12/22 22:50 Aerobic Blood Culture - Preliminary Blood No growth in Aerobic bottle after 24 hours. Anaerobic Blood Culture - Final 06/12/22 23:15 Aerobic Blood Culture - Preliminary Blood No growth in Aerobic bottle after 24 hours. Anaerobic Blood Culture - Preliminary No growth in Anaerobic bottle after 24 hours. Electrocardiogram Date: 06/12/22 Findings: + NSR @ (78) Echocardiogram Date: 03/17/20 EF: 56% LV Function: normal Valvular Disease: + AI (mild) mild TR
[2022-06-14] MEDS ORDERED: LIDOCAINE 2% MPF LOCAL 5 ML VIAL INFIL ONE (10:50)
[2022-06-14] MEDS ORDERED: PROPOFOL IV EMULSION 10 MG/ML 20 ML VIAL IV ONE (10:50)
--- NOTE | 2022-06-14 11:15 | GI REPORT ---
Patient Name: Yaneth Pratt Procedure Date: 06/14/2022 10:49 AM Date of : 1945 Admit Type: Inpatient Age: 76 Gender: Female Attending MD: Brooke Barajas DO Procedure: Upper GI endoscopy Providers: Brooke Barajas DO Referring MD: Aramis Belle Md Indications: Epigastric abdominal pain, Abnormal CT of the GI tract Medicines: Monitored Anesthesia Care Complications: No immediate complications. Estimated blood loss: Minimal. Estimated Blood Loss: Estimated blood loss was minimal. Procedure: Pre-Anesthesia Assessment: - Prior to the procedure, a History and Physical was performed, and patient medications, allergies and sensitivities were reviewed. The patient's tolerance of previous anesthesia was reviewed. - The risks and benefits of the procedure and the sedation options and risks were discussed with the patient. All questions were answered and informed consent was obtained. - Patient identification and proposed procedure were verified prior to the procedure by the physician, the nurse and the hat finishing materials preparer. The procedure was verified in the procedure room. - Pre-procedure physical examination revealed no contraindications to sedation. - ASA Grade Assessment: III - A patient with severe systemic disease. - After reviewing the risks and benefits, the patient was deemed in satisfactory condition to undergo the procedure. - The anesthesia plan was to use monitored anesthesia care (MAC). - Immediately prior to administration of medications, the patient was re-assessed for adequacy to receive sedatives. - The heart rate, respiratory rate, oxygen saturations, blood pressure, adequacy of pulmonary ventilation, and response to care were monitored throughout the procedure. - The physical status of the patient was re-assessed after the procedure. After obtaining informed consent, the endoscope was passed under direct vision. Throughout the procedure, the patient's blood pressure, pulse, and oxygen saturations were monitored continuously. The Endoscope was introduced through the mouth, and advanced to the third part of duodenum. The upper GI endoscopy was accomplished without difficulty. The patient tolerated the procedure well. Findings: The examined esophagus was normal. The Z-line was regular and was found 35 cm from the incisors. Diffuse mild inflammation characterized by congestion (edema), erythema and granularity was found in the entire examined stomach. Biopsies were taken with a cold forceps for histology. The pathology specimen was placed into Bottle B. Estimated blood loss was minimal. Multiple 6 to 10 mm semi-sessile polyps with no bleeding and no stigmata of recent bleeding were found in the gastric fundus and in the gastric body. One polyp was removed with a cold biopsy forceps. Resection and retrieval were complete. To prevent bleeding after the polypectomy, two hemostatic clips were successfully placed (MR conditional). There was no bleeding at the end of the procedure. The examined duodenum was normal. Impression: - Normal esophagus. - Z-line regular, 35 cm from the incisors. - Gastritis. Biopsied. - Multiple gastric polyps, likely fundic polyps. One polyp was resected and retrieved. Clips (MR conditional) were placed. - Normal examined duodenum. Recommendation: - [facility]. - Use Prilosec (omeprazole) 20 mg PO daily. - Await pathology results. Brooke Barajas D.O. Brooke Barajas, 06/14/2022 11:15:16 AM This report has been signed electronically. Note Initiated On: 06/14/2022 10:49 AM Number of Addenda: 0 I attest to the content of the Intraoperative Record and orders documented therein, exceptions below {[id number]}
--- NOTE | 2022-06-14 11:16 | Communication Note ---
Date of Service: June 14, 2022 The patient underwent upper endoscopy today for evaluation of her gastric distention and wall thickening seen on CT scan. There was no evidence of gastric outlet obstruction. The patient did have diffuse gastritis in addition to multiple polyps within the stomach which are most consistent with fundic polyps. Recommendations Would suggest a low-dose PPI such as Protonix or omeprazole 20 mg/day GI follow-up as needed as an outpatient Please call with any questions or concerns GI to sign off
--- NOTE | 2022-06-14 11:53 | Anesthesiology Progress Note ---
Date of Service June 14, 2022 Anesthesia Post Procedure Vital Signs Vital Signs: Temp Pulse Pulse Resp BP BP Pulse Ox 06/14/22 11:43 77 16 163/76 H 97 06/14/22 08:22 73 16 151/73 H 98 06/14/22 11:13 88 16 111/64 97 06/14/22 10:41 36.3 C L 84 16 171/86 H 95 06/14/22 10:01 81 06/14/22 07:55 37.4 C 80 16 159/79 H 98 06/14/22 04:33 92 H 06/14/22 04:31 06/14/22 03:26 36.7 C 80 18 155/80 H 97 06/13/22 19:00 36.9 C 79 20 160/90 H 95 06/13/22 15:44 36.8 C 89 20 175/95 H 96 06/13/22 14:55 79 O2 Del Method 06/14/22 11:43 Room Air 06/14/22 08:22 06/14/22 11:13 Room Air 06/14/22 10:41 Room Air 06/14/22 10:01 06/14/22 07:55 Room Air 06/14/22 04:33 06/14/22 04:31 Room Air 06/14/22 03:26 Room Air 06/13/22 19:00 Room Air 06/13/22 15:44 Room Air 06/13/22 14:55 Pain Intensity Head: Pain Intensity: 7 Back: Pain Intensity: 10 Transfer of Care Handoff Completed per policy Notes Mental Status: alert / awake / arousable Patient Amnestic to Procedure: Yes Nausea / Vomiting: adequately controlled Pain: adequately controlled Airway Patency, RR, SpO2: stable & adequate BP & HR: stable & adequate Hydration State: stable & adequate Anesthetic Complications: no major complications apparent
[2022-06-14] MEDS: traMADol HCL 50 MG TABLET PO PRN ×2 (13:00→21:36)
--- NOTE | 2022-06-14 18:28 | Hospitalist Progress Note ---
Date of Service June 14, 2022 Assessment & Plan (1) Cellulitis of left leg: Plan: Continue Rocephin, CRP ordered but pending, will reorderclinically stable to better Ankle area lucency on x-rayorthopedic input noted; does not appear infective but sent message (2) Rheumatoid arthritis: Plan: Continue folic acid, sulfasalazine, baclofen, gabapentin and prednisone On methotrexate as outpatient Continue home regimen (3) Spinal stenosis, lumbar region with neurogenic claudication: Plan: Continue with tramadol 50 mg p.o. every 8 hours as needed moderate pain (4) Dementia: Plan: Continue donepezil (5) Hyperlipidemia: Plan: Continue atorvastatin 20 mg daily (6) Hypertension: Plan: Continue amlodipine, aspirin (7) Generalized anxiety disorder: Plan: Generalized anxiety disorder/depression- Continue buspirone and duloxetine 30 mg daily (8) Depression: Plan: See above (9) Ambulatory dysfunction: Plan: Consult PT/OT prior to discharge (10) Gastric distention: Plan: EGD noted, continue PPI (11) Thickened endometrium: Plan: At some point [employer] evaluation, pelvic ultrasound (12) Electrolyte abnormality: Plan: Replace as appropriate, replace potassium and phos Admission and Anticipated Discharge Date Admission Date: June 13, 2022 Subjective Follow-up of presentation with left foot erythemafoot much better; no more vomiting but nausea Physical Exam Physical Exam: Constitutional and general: No acute distress, looks biologic age Head and face: No puffiness, atraumatic Eyes: No scleral icterus, extraocular movements normal Neck: Supple, no JVD Musculoskeletal: No acute joint swelling, no bony abnormalities Skin/dermatologic/integument: No rash, no purpura Hematologic and lymphatic: pallor +, no petechia Gastrointestinal/abdomen: Nondistended, soft, nonacute Neurologic: Cranial nerves intact, nonfocal Psychiatry: Awake, alert, pleasant, communicative Cardiovascular: Heart rhythm regular, no rub, no murmur, no gallop Respiratory: Chest movements equal, no use of accessory muscles, no adventitious sounds Extremities: Left foot edema and erythema Results & Data Results & Data ([facility]) Vital Signs (Past 12 Hours) Vital Signs Temp Pulse Pulse Resp BP BP Pulse Ox 06/14/22 15:53 36.7 C 81 18 160/94 H 96 06/14/22 15:47 80 06/14/22 12:07 37.0 C 78 19 158/81 H 97 06/14/22 11:43 77 16 163/76 H 97 06/14/22 08:22 73 16 151/73 H 98 06/14/22 11:13 88 16 111/64 97 06/14/22 10:41 36.3 C L 84 16 171/86 H 95 06/14/22 10:01 81 06/14/22 07:55 37.4 C 80 16 159/79 H 98 O2 Del Method 06/14/22 15:53 Room Air 06/14/22 15:47 06/14/22 12:07 Room Air 06/14/22 11:43 Room Air 06/14/22 08:22 06/14/22 11:13 Room Air 06/14/22 10:41 Room Air 06/14/22 10:01 06/14/22 07:55 Room Air Laboratory Results Laboratory Results - last 24 hr 06/14/22 06/14/22 06:12 06:12 WBC 7.13 RBC 3.58 L Hgb 12.2 Hct 35.8 MCV 100.0 MCH 34.1 H MCHC 34.1 RDW Std Deviation 52.7 H RDW Coeff of [place] 14.8 H Plt Count 193 MPV 9.0 L Immature Gran % (Auto) 0.6 Neut % (Auto) 62.0 Lymph % (Auto) 24.1 Dunn % (Auto) 10.0 Eos % (Auto) 2.5 Baso % (Auto) 0.8 Neut # (Auto) 4.42 Lymph # (Auto) 1.72 Dunn # (Auto) 0.71 Eos # (Auto) 0.18 Baso # (Auto) 0.06 Immature Gran # (Auto) 0.04 H Sodium 140 Potassium 3.1 L Chloride 110 H Carbon Dioxide 22 Anion Gap 8 BUN 12 Creatinine 0.58 L Est Cr Clr Drug Dosing 72.7 Est GFR ( Amer) 102.3 Est GFR (Non-Af Amer) 88.3 BUN/Creatinine Ratio 20.7 H Glucose 83 Fasting Glucose 83 Calcium 7.9 L Phosphorus 1.6 L Magnesium 2.0 Total Bilirubin 0.5 AST 21 ALT 16 Alkaline Phosphatase 67 C-Reactive Protein 0.78 H Total Protein 6.3 Albumin 3.7 Globulin 2.6 Albumin/Globulin Ratio 1.4 PG Care Time/CCT Total # of Minutes Spent Total Time Spent with Patient: Total time spent is greater than 50% in coordination of care (as documented) at patient's floor/unit and/or counseling patient: Coding Level of Care Code 06821 Subseq Hosp Care Lvl 2 Diagnoses Cellulitis of left leg L03.116 Rheumatoid arthritis M06.9 Rheumatoid arthritis location: unspecified site Rheumatoid factor presence: unspecified presence Spinal stenosis, lumbar region with neurogenic claudication M48.062 Dementia F03.90 Hyperlipidemia E78.2 Hyperlipidemia type: mixed hyperlipidemia Hypertension I10 Hypertension type: essential hypertension Generalized anxiety disorder F41.1 Depression F32.9 Ambulatory dysfunction R26.2 Gastric distention K31.89 Thickened endometrium R93.89 Electrolyte abnormality E87.8 (1) Rheumatoid arthritis Rheumatoid arthritis location: unspecified site Rheumatoid factor presence: unspecified presence Qualified Code(s): M06.9 - Rheumatoid arthritis, unspecified (2) Hyperlipidemia Hyperlipidemia type: mixed hyperlipidemia Qualified Code(s): E78.2 - Mixed hyperlipidemia (3) Hypertension Hypertension type: essential hypertension Qualified Code(s): I10 - Essential (primary) hypertension
[2022-06-14] MEDS: GABAPENTIN 400 MG CAP PO SCH (21:38)
[2022-06-15] MEDS: cefTRIAXone SODIUM 2,000 MG in DEXTROSE 5% 50 ML IV SCH (00:25)
[2022-06-15 06:27] LABS: Basophils # (auto) 0.06 K/uL (0-0.2); Basophils % (auto) 0.9 %; Eosinophils # (auto) 0.16 K/uL (0-0.50); Eosinophils % (auto) 2.5 %; Hematocrit (blood only) 37.8 % (34.1-44.9); Hemoglobin 12.8 g/dl (12.0-16.0); Immature Granulocytes # (auto) 0.05 K/uL (0.00-0.02); Immature Granulocytes % (auto) 0.8 %; Lymphocytes # (auto) 1.63 K/uL (1.2-3.4); Lymphocytes % (auto) 25.2 %; Mean Corpuscular Hgb Conc 33.9 g/dL (32.0-36.0); Mean Corpuscular Volume 97.4 fL (80.0-100.0); Mean Platelet Volume 8.5 fL (9.4-12.3); Monocytes # (auto) 0.78 K/uL (0.24-0.82); Monocytes % (auto) 12.1 %; Neutrophils # (auto) 3.79 K/uL (1.4-6.5); Neutrophils % (auto) 58.5 %; Platelet Count 193 K/uL (130-400); RDW Coefficient of Variation 14.6 % (11.5-14.5); Red Blood Count 3.88 M/uL (3.93-5.22); White Blood Count 6.47 K/ul (4.8-10.8)
[2022-06-15 07:13] LABS: Albumin Globulin Ratio 1.4 (0.9-2); Albumin Level 3.8 gm/dl (3.4-5.0); Bilirubin,Total 0.4 mg/dl (0.2-1.0); C Reactive Protein 0.92 mg/dl (0-0.5); Calcium 7.4 mg/dl (8.5-10.1); Creatinine Clr Calc Pharmacy 73.5 ml/min; Est GFR (African American) 104.1 ml/min; Est GFR (Non-African American) 89.8 ml/min; Globulin 2.7 gm/dl (2.5-4.0); Magnesium 1.8 mg/dl (1.7-2.4); Phosphorus 1.7 mg/dl (2.5-4.9); Potassium 2.7 mmol/L (3.5-5.1); Total Protein 6.5 gm/dl (6.0-8.3)
[2022-06-15] MEDS ORDERED: POTASSIUM PHOS 3 MMOL/1 ML INFUSION IV STA (07:19)
[2022-06-15] MEDS ORDERED: POTASSIUM PHOSPHATE 30 MMOL in SODIUM CHLORIDE 0.9% 500 ML IV ONE (07:45)
[2022-06-15] MEDS: traMADol HCL 50 MG TABLET PO PRN ×2 (07:59→20:00)
[2022-06-15] MEDS: CYANOCOBALAMIN (B-12) 500 MCG TABLET PO SCH (07:59)
[2022-06-15] MEDS: busPIRone 5 MG TAB PO SCH ×2 (07:59→20:01)
[2022-06-15] MEDS: PANTOprazole 40 MG in SYRINGE 0 ML IV SCH ×2 (07:59→21:25)
[2022-06-15] MEDS: DOCUSATE SODIUM 100 MG CAP PO SCH ×2 (07:59→20:02)
[2022-06-15] MEDS: ASPIRIN 81 MG ECTAB PO SCH (08:00)
[2022-06-15] MEDS: DULoxetine HCL 30 MG CAP PO SCH (08:00)
[2022-06-15] MEDS: FOLIC ACID 1 MG TAB PO SCH (08:00)
[2022-06-15] MEDS: amLODIPine BESYLATE 5 MG TAB PO SCH (08:00)
[2022-06-15] MEDS: DONEPEZIL HCL 10 MG TAB PO SCH (08:00)
[2022-06-15] MEDS: rOPINIRole HCL 0.25 MG TABLET PO SCH ×3 (08:00→20:05)
[2022-06-15] MEDS: ATORVASTATIN 20 MG TAB PO SCH (08:00)
[2022-06-15] MEDS: ENOXAPARIN INJ 40 MG/0.4 ML SYR SQ SCH (08:00)
[2022-06-15] MEDS: predniSONE 5 MG TAB PO SCH (08:00)
[2022-06-15] MEDS: sulfaSALAzine 500 MG TABLET PO SCH (08:00)
[2022-06-15] MEDS: BACLOFEN 10 MG TAB PO SCH ×2 (08:15→20:10)
[2022-06-15] MEDS: SODIUM CHLORIDE 0.9% 1000ML 1,000 ML IV SCH (13:21)
[2022-06-15] MEDS: POTASSIUM CHLORIDE / WTR 10 MEQ/100 ML PLCT IV SCH ×2 (13:22→14:19)
--- NOTE | 2022-06-15 17:19 | Hospitalist Progress Note ---
Date of Service June 15, 2022 Assessment & Plan (1) Cellulitis of left leg: Plan: Continue Rocephin, CRP noted but overall not impressive; communicated with Orthothey do not think lucency infecting but were going to relocate x-ray and let me know; no change for now (2) Rheumatoid arthritis: Plan: Continue folic acid, sulfasalazine, baclofen, gabapentin and prednisone On methotrexate as outpatient Continue home regimen (3) Spinal stenosis, lumbar region with neurogenic claudication: Plan: Continue with tramadol 50 mg p.o. every 8 hours as needed moderate pain (4) Dementia: Plan: Continue donepezil (5) Hyperlipidemia: Plan: Continue atorvastatin 20 mg daily (6) Hypertension: Plan: Continue amlodipine, aspirin (7) Generalized anxiety disorder: Plan: Generalized anxiety disorder/depression- Continue buspirone and duloxetine 30 mg daily (8) Depression: Plan: See above (9) Ambulatory dysfunction: Plan: Consult PT/OT prior to discharge (10) Gastric distention: Plan: EGD noted, continue PPI (11) Thickened endometrium: Plan: Pelvic ultrasound while here; [employer] at some point (12) Electrolyte abnormality: Plan: Replace as appropriate, replace potassium and phos Admission and Anticipated Discharge Date Admission Date: June 13, 2022 Subjective Follow-up of presentation with left foot erythemafoot further better, still no vomiting and but still nausea Physical Exam Physical Exam: Constitutional and general: No acute distress, looks biologic age Head and face: No puffiness, atraumatic Eyes: No scleral icterus, extraocular movements normal Neck: Supple, no JVD Musculoskeletal: No acute joint swelling, no bony abnormalities Skin/dermatologic/integument: No rash, no purpura Hematologic and lymphatic: pallor +, no petechia Gastrointestinal/abdomen: Nondistended, soft, nonacute Neurologic: Cranial nerves intact, nonfocal Psychiatry: Awake, alert, pleasant, communicative Cardiovascular: Heart rhythm regular, no rub, no murmur, no gallop Respiratory: Chest movements equal, no use of accessory muscles, no adventitious sounds Extremities: Left foot edema and erythema Results & Data Results & Data ([facility]) Vital Signs (Past 12 Hours) Vital Signs Temp Pulse Pulse Resp BP BP Pulse Ox 06/15/22 15:47 92 H 06/15/22 11:31 36.5 C 101 H 20 171/87 H 98 07/22/22 09:21 100 H 06/15/22 07:59 36.7 C 86 18 161/95 H 98 O2 Del Method 06/15/22 15:47 06/15/22 11:31 Room Air 06/15/22 09:21 06/15/22 07:59 Room Air Laboratory Results Laboratory Results - last 24 hr 06/15/22 06/15/22 05:32 05:32 WBC 6.47 RBC 3.88 L Hgb 12.8 Hct 37.8 MCV 97.4 MCH 33.0 MCHC 33.9 RDW Std Deviation 50.0 H RDW Coeff of [place] 14.6 H Plt Count 193 MPV 8.5 L Immature Gran % (Auto) 0.8 Neut % (Auto) 58.5 Lymph % (Auto) 25.2 [place] % (Auto) 12.1 Eos % (Auto) 2.5 Baso % (Auto) 0.9 Neut # (Auto) 3.79 Lymph # (Auto) 1.63 [place] # (Auto) 0.78 Eos # (Auto) 0.16 Baso # (Auto) 0.06 Immature Gran # (Auto) 0.05 H Sodium 141 Potassium 2.7 L Chloride 110 H Carbon Dioxide 20 L Anion Gap 11 BUN 9 Creatinine 0.55 L Est Cr Clr Drug Dosing 73.5 Est GFR ( Amer) 104.1 Est GFR (Non-Af Amer) 89.8 Fasting Glucose 78 Calcium 7.4 L Phosphorus 1.7 L Magnesium 1.8 Total Bilirubin 0.4 AST 23 ALT 15 Alkaline Phosphatase 63 C-Reactive Protein 0.92 H Total Protein 6.5 Albumin 3.8 Globulin 2.7 Albumin/Globulin Ratio 1.4 PG Care Time/CCT Total # of Minutes Spent Total Time Spent with Patient: Total time spent is greater than 50% in coordination of care (as documented) at patient's floor/unit and/or counseling patient: Coding Level of Care Code 32460 Subseq Hosp Care Lvl 2 Diagnoses Cellulitis of left leg L03.116 Rheumatoid arthritis M06.9 Rheumatoid arthritis location: unspecified site Rheumatoid factor presence: unspecified presence Spinal stenosis, lumbar region with neurogenic claudication M48.062 Dementia F03.90 Hyperlipidemia E78.2 Hyperlipidemia type: mixed hyperlipidemia Hypertension I10 Hypertension type: essential hypertension Generalized anxiety disorder F41.1 Depression F32.9 Ambulatory dysfunction R26.2 Gastric distention K31.89 Thickened endometrium R93.89 Electrolyte abnormality E87.8 (1) Rheumatoid arthritis Rheumatoid arthritis location: unspecified site Rheumatoid factor presence: unspecified presence Qualified Code(s): M06.9 - Rheumatoid arthritis, unspecified (2) Hyperlipidemia Hyperlipidemia type: mixed hyperlipidemia Qualified Code(s): E78.2 - Mixed hyperlipidemia (3) Hypertension Hypertension type: essential hypertension Qualified Code(s): I10 - Essential (primary) hypertension
[2022-06-15] MEDS ORDERED: POTASSIUM CHLORIDE 20 MEQ/15 ML UDC PO ONE (18:00)
[2022-06-15] MEDS ORDERED: POTASSIUM CHLORIDE CRTAB 20 MEQ TABCR PO ONE (18:00)
[2022-06-15] MEDS: GABAPENTIN 400 MG CAP PO SCH (20:03)
[2022-06-16] MEDS: cefTRIAXone SODIUM 2,000 MG in DEXTROSE 5% 50 ML IV SCH (01:05)
[2022-06-16] MEDS: ASPIRIN 81 MG ECTAB PO SCH (07:42)
[2022-06-16] MEDS: FOLIC ACID 1 MG TAB PO SCH (07:42)
[2022-06-16] MEDS: amLODIPine BESYLATE 5 MG TAB PO SCH (07:42)
[2022-06-16] MEDS: busPIRone 5 MG TAB PO SCH ×2 (07:42→21:28)
[2022-06-16] MEDS: PANTOprazole 40 MG in SYRINGE 0 ML IV SCH ×2 (07:42→21:29)
[2022-06-16] MEDS: DONEPEZIL HCL 10 MG TAB PO SCH (07:42)
[2022-06-16] MEDS: ATORVASTATIN 20 MG TAB PO SCH (07:42)
[2022-06-16] MEDS: CYANOCOBALAMIN (B-12) 500 MCG TABLET PO SCH (07:43)
[2022-06-16] MEDS: rOPINIRole HCL 0.25 MG TABLET PO SCH ×3 (07:43→21:25)
[2022-06-16] MEDS: DULoxetine HCL 30 MG CAP PO SCH (07:43)
[2022-06-16] MEDS: sulfaSALAzine 500 MG TABLET PO SCH (07:43)
[2022-06-16] MEDS: predniSONE 5 MG TAB PO SCH (07:43)
[2022-06-16] MEDS: ENOXAPARIN INJ 40 MG/0.4 ML SYR SQ SCH (07:44)
[2022-06-16] MEDS: DOCUSATE SODIUM 100 MG CAP PO SCH ×2 (07:45→21:25)
--- NOTE | 2022-06-16 07:54 | Ultrasound Report ---
ULTRASOUND OF THE PELVIS CLINICAL HISTORY: Abnormal uterus seen by CT. COMPARISON STUDY: Pelvic CT dated 06/13/2022. TECHNIQUE: Real-time, grayscale, and color flow sonography of the pelvis is performed both transabdom inally and endovaginally. Images are reviewed in the transverse and longitudinal planes. The endovagi nal examination is performed to better assessment of the endometrium and adnexa. FINDINGS: Uterus: The uterus is normal in size and heterogeneous in echotexture, measuring 8.0 x 4.3 x 4.7 cm. Endometrium: The endometrial stripe cannot be measured. There is complex fluid distending the endomet rial canal, measuring 5.5 x 4.1 x 4.4 cm. This corresponds to the abnormality seen by CT. No internal flow is shown color imaging. A similar-appearing complex cystic structure in the cervix measures up to 2.1 cm. Ovaries: The ovaries were not visualized due to overlying bowel gas. Pelvis: There is no free fluid in the cul-de-sac. No concerning adnexal lesion is seen. IMPRESSION: 1. The endometrial canal is distended and filled with complex fluid, likely representing hematocolpos . This could be seen with cervical stricture/obstruction, and this corresponds to the abnormality see n by CT. Gynecology evaluation is advised. 2. A similar-appearing 2.1 cm complex nonvascular structure is noted within the cervix. This could re present a component of the same process versus a complex nabothian cyst. 3. Nonvisualization of the ovaries. 4. No adnexal abnormality is seen. ACT 112: Negative or not required by law. Electronically signed by: Jcarlos Kinney M.D. 06/16/2022 7:52 AM
[2022-06-16 07:55] LABS: Basophils # (auto) 0.04 K/uL (0-0.2); Basophils % (auto) 0.6 %; Eosinophils # (auto) 0.16 K/uL (0-0.50); Eosinophils % (auto) 2.2 %; Hematocrit (blood only) 37.1 % (34.1-44.9); Hemoglobin 12.9 g/dl (12.0-16.0); Immature Granulocytes # (auto) 0.07 K/uL (0.00-0.02); Lymphocytes # (auto) 2.55 K/uL (1.2-3.4); Lymphocytes % (auto) 35.2 %; Mean Corpuscular Hemoglobin 33.8 pg (25.0-34.0); Mean Corpuscular Hgb Conc 34.8 g/dL (32.0-36.0); Mean Corpuscular Volume 97.1 fL (80.0-100.0); Mean Platelet Volume 8.7 fL (9.4-12.3); Monocytes # (auto) 0.72 K/uL (0.24-0.82); Monocytes % (auto) 9.9 %; Neutrophils # (auto) 3.71 K/uL (1.4-6.5); Neutrophils % (auto) 51.1 %; Platelet Count 204 K/uL (130-400); RDW Coefficient of Variation 15.2 % (11.5-14.5); RDW Standard Deviation 52.3 fL (36.4-46.3); Red Blood Count 3.82 M/uL (3.93-5.22); White Blood Count 7.25 K/ul (4.8-10.8)
[2022-06-16 08:36] LABS: Alanine Aminotransferase 16 U/L (7-52); Albumin Globulin Ratio 1.5 (0.9-2); Alkaline Phosphatase 66 U/L (34-104); Anion Gap 10 (3-11); Aspartate Aminotransferase 20 U/L (13-39); Bilirubin,Total 0.5 mg/dl (0.2-1.0); Blood Urea Nitrogen 11 mg/dl (6-23); C Reactive Protein < 0.50 mg/dl (0-0.5); Calcium 7.5 mg/dl (8.5-10.1); Carbon Dioxide 21 mmol/L (21-32); Chloride 111 mmol/L (98-107); Creatinine Clr Calc Pharmacy 65.3 ml/min; Est GFR (African American) 99.6 ml/min; Est GFR (Non-African American) 85.9 ml/min; Globulin 2.7 gm/dl (2.5-4.0); Glucose Fasting 130 mg/dl (70-99); Magnesium 1.8 mg/dl (1.7-2.4); Phosphorus 1.9 mg/dl (2.5-4.9); Potassium 3.2 mmol/L (3.5-5.1); Sodium 142 mmol/L (136-145); Total Protein 6.7 gm/dl (6.0-8.3)
[2022-06-16] MEDS ORDERED: POTASSIUM PHOS 3 MMOL/1 ML INFUSION IV STA (09:12)
[2022-06-16] MEDS ORDERED: POTASSIUM PHOSPHATE 30 MMOL in SODIUM CHLORIDE 0.9% 500 ML IV ONE (09:30)
[2022-06-16] MEDS: BACLOFEN 10 MG TAB PO SCH ×2 (09:32→22:38)
--- NOTE | 2022-06-16 15:34 | Hospitalist Progress Note ---
Date of Service June 16, 2022 Assessment & Plan (1) Cellulitis of left leg: Plan: Continue Rocephin, CRP normalized; had communicated with Orthothey do not think lucency infective and have not heard anything further; as noted, clinically left foot symptoms resolved (2) Rheumatoid arthritis: Plan: Continue folic acid, sulfasalazine, baclofen, gabapentin and prednisone On methotrexate as outpatient Continue home regimen (3) Spinal stenosis, lumbar region with neurogenic claudication: Plan: Continue with tramadol 50 mg p.o. every 8 hours as needed moderate pain (4) Dementia: Plan: Continue donepezil (5) Hyperlipidemia: Plan: Continue atorvastatin 20 mg daily (6) Hypertension: Plan: Continue amlodipine (7) Generalized anxiety disorder: Plan: Generalized anxiety disorder/depression- Continue buspirone and duloxetine 30 mg daily (8) Depression: Plan: See above (9) Ambulatory dysfunction: Plan: Consult PT/OT prior to discharge (10) Gastric distention: Plan: EGD noted, continue PPI (11) Thickened endometrium: Plan: Complex uterine and cervical pathology noted on ultrasoundGYN consult (12) Electrolyte abnormality: Plan: Replace as appropriate, replace potassium and phosstill stubbornly low Admission and Anticipated Discharge Date Admission Date: June 13, 2022 Subjective Follow-up of presentation with left foot erythemafoot symptoms essentially resolved; no complaints voiced Physical Exam Physical Exam: Constitutional and general: No acute distress, looks biologic age Head and face: No puffiness, atraumatic Eyes: No scleral icterus, extraocular movements normal Neck: Supple, no JVD Musculoskeletal: No acute joint swelling, no bony abnormalities Skin/dermatologic/integument: No rash, no purpura Hematologic and lymphatic: pallor +, no petechia Gastrointestinal/abdomen: Nondistended, soft, nonacute Neurologic: Cranial nerves intact, nonfocal Psychiatry: Awake, alert, pleasant, communicative Cardiovascular: Heart rhythm regular, no rub, no murmur, no gallop Respiratory: Chest movements equal, no use of accessory muscles, no adventitious sounds Extremities: Left foot edema and erythema nearly resolved Results & Data Results & Data ([facility]) Vital Signs (Past 12 Hours) Vital Signs Temp Pulse Resp BP BP Pulse Ox O2 Del Method 06/16/22 11:25 36.8 C 91 H 18 139/79 97 Room Air 06/16/22 08:00 Room Air 06/16/22 07:50 36.8 C 96 H 18 150/86 H 98 Room Air 06/16/22 04:00 37.0 C 88 18 160/77 H 94 Room Air Laboratory Results Laboratory Results - last 24 hr 06/16/22 06/16/22 07:28 07:28 WBC 7.25 RBC 3.82 L Hgb 12.9 Hct 37.1 MCV 97.1 MCH 33.8 MCHC 34.8 RDW Std Deviation 52.3 H RDW Coeff of [place] 15.2 H Plt Count 204 MPV 8.7 L Immature Gran % (Auto) 1.0 Neut % (Auto) 51.1 Lymph % (Auto) 35.2 [place] % (Auto) 9.9 Eos % (Auto) 2.2 Baso % (Auto) 0.6 Neut # (Auto) 3.71 Lymph # (Auto) 2.55 [place] # (Auto) 0.72 Eos # (Auto) 0.16 Baso # (Auto) 0.04 Immature Gran # (Auto) 0.07 H Sodium 142 Potassium 3.2 L Chloride 111 H Carbon Dioxide 21 Anion Gap 10 BUN 11 Creatinine 0.63 Est Cr Clr Drug Dosing 65.3 Est GFR ( Amer) 99.6 Est GFR (Non-Af Amer) 85.9 Fasting Glucose 130 H Calcium 7.5 L Phosphorus 1.9 L Magnesium 1.8 Total Bilirubin 0.5 AST 20 ALT 16 Alkaline Phosphatase 66 C-Reactive Protein < 0.50 Total Protein 6.7 Albumin 4.0 Globulin 2.7 Albumin/Globulin Ratio 1.5 PG Care Time/CCT Total # of Minutes Spent Total Time Spent with Patient: Total time spent is greater than 50% in coordination of care (as documented) at patient's floor/unit and/or counseling patient: Coding Level of Care Code 68430 Subseq Hosp Care Lvl 2 Diagnoses Cellulitis of left leg L03.116 Rheumatoid arthritis M06.9 Rheumatoid arthritis location: unspecified site Rheumatoid factor presence: unspecified presence Spinal stenosis, lumbar region with neurogenic claudication M48.062 Dementia F03.90 Hyperlipidemia E78.2 Hyperlipidemia type: mixed hyperlipidemia Hypertension I10 Hypertension type: essential hypertension Generalized anxiety disorder F41.1 Depression F32.9 Ambulatory dysfunction R26.2 Gastric distention K31.89 Thickened endometrium R93.89 Electrolyte abnormality E87.8 (1) Rheumatoid arthritis Rheumatoid arthritis location: unspecified site Rheumatoid factor presence: unspecified presence Qualified Code(s): M06.9 - Rheumatoid arthritis, unspecified (2) Hyperlipidemia Hyperlipidemia type: mixed hyperlipidemia Qualified Code(s): E78.2 - Mixed hyperlipidemia (3) Hypertension Hypertension type: essential hypertension Qualified Code(s): I10 - Essential (primary) hypertension
[2022-06-16] MEDS ORDERED: TEMAZEPAM 7.5 MG CAPSULE PO PRN (18:00)
[2022-06-16] MEDS: traMADol HCL 50 MG TABLET PO PRN (21:23)
[2022-06-16] MEDS: GABAPENTIN 400 MG CAP PO SCH (21:27)
[2022-06-17] MEDS: cefTRIAXone SODIUM 2,000 MG in DEXTROSE 5% 50 ML IV SCH (00:18)
--- NOTE | 2022-06-17 06:43 | OB/GYN Consultation ---
Date of Consultation June 17, 2022 Assessment & Plan (1) Thickened endometrium: (2) Abnormal finding present on diagnostic imaging of uterus: Plan Discussed with patient the incidental findings of the imaging on her uterus. No sx, no bleeding. Still need to offer evaluation and recommend in outpt setting as needs attempt at embx. She isn't sure about traveling to our office but in the end accepts appt and thinks she can get someone to drive her. She clearly wants this finding to be evaluated and seems motivated to do so. Plan complete pelvic exam in office. Now that I look at images, will plan our office do repeat u/s same day of visit and will coordinate with the office and they will call her. She would have u/s in our office, followed by visit with me(planning right now for 07/18--but office will call her). Expect office endometrial sampling, reviewed with patient. History of Present Illness Reason for Consultation: abnormal u/s findings Requesting Physician: Dr. Belle Attending Physician: Aramis Belle MD History of Present Illness 76yo with cc of being asked to see on consult by Dr. Belle for abnormal u/s findings/imaging findings of uterus. Patient was admitted to hospital on 06/12 apparently for leg cellulitis and other complaints to include abdominal pain. For that reason imaging via CT abd/pelvis was done and on that study mentions enlarged uterus with thickened endometrium. A pelvic u/s study then was done showing a normal sized uterus but large collection in cavity that did not show vascularity. Images reviewed to best of my ability. She notes no bleeding. No pain. Has pressure on her bladder and urgency of urination and wondering if related. 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 No pmb. She thinks she is going home soon and not sure of where she wants to do petroleum refinery worker followup. OBH: x 3, miscarriage x 1 GYNH: menarche 10, menopause early 50s. no history of abnl paps she can recall. no petroleum refinery worker surgeries. All Active Problems (Updated 06/14/22 @ 18:24 by Aramis Belle MD) Electrolyte abnormality Thickened endometrium Gastric distention Encounter for pre-operative examination Fixation hardware in lower extremity Vomiting Cellulitis of left leg (Acute) Headache (Acute) Urinary incontinence Severe headache Spinal stenosis, lumbar region with neurogenic claudication Nocturia Right arm fracture Dementia Ambulatory dysfunction (Acute) Hypokalemia (Acute) Status post hip surgery Acid reflux disease (Chronic) Balance problems (Chronic) Current chronic use of systemic steroids (Chronic) Degenerative cervical spinal stenosis (Chronic) Depression (Chronic) Gait abnormality (Chronic) Generalized anxiety disorder (Chronic) High risk medication use (Chronic) Hyperlipidemia (Chronic) Hypertension (Chronic) Insomnia (Chronic) Lumbar radiculopathy (Chronic) Osteoporosis (Chronic) Rheumatoid arthritis (Chronic) TMJ arthritis (Chronic) Allergies Allergy/AdvReac Type Severity Reaction Status Date / Time No Known Drug Allergies Allergy NKDA Verified 06/13/22 01:20 Home Medications Medication Instructions Recorded Confirmed Type aspirin 81 mg tablet,delayed 81 mg PO DAILY #30 tabs 05/29/19 06/13/22 Rx release folic acid 1 mg tablet 3 mg PO DAILY #90 tabs 06/01/19 06/13/22 Rx prednisone 5 mg tablet 5 mg PO DAILY #90 tabs 06/09/19 06/13/22 Rx denosumab 60 mg/mL subcutaneous 60 mg subcut .COMPLEX #1 mL 03/21/20 06/13/22 Rx syringe sulfasalazine 500 mg tablet 1 gm PO DAILY 07/21/20 06/13/22 History (Azulfidine) donepezil 10 mg tablet 10 mg PO DAILY #30 tabs 04/15/21 06/13/22 Rx baclofen 10 mg tablet 5 mg PO BID #60 tabs 09/02/21 06/13/22 Rx methotrexate sodium 5 mg tablet 30 mg PO .COMPLEX #30 tabs 10/16/21 06/13/22 Rx atorvastatin 20 mg tablet 20 mg PO DAILY #90 tabs 12/16/21 06/13/22 Rx cyanocobalamin (vitamin B-12) 1,000 mcg PO DAILY #100 tabs 01/03/22 06/13/22 Rx 1,000 mcg tablet buspirone 10 mg tablet 10 mg PO BID #180 tabs 02/15/22 06/13/22 Rx gabapentin 100 mg capsule 400 mg PO HS 03/12/22 06/13/22 History mometasone 0.1 % topical solution 1 applic topical DAILY PRN skin 03/12/22 06/13/22 Rx irritation #60 mL ropinirole 0.25 mg tablet See Rx Instructions PO .COMPLEX 03/12/22 06/13/22 History amlodipine 5 mg tablet 5 mg PO DAILY #90 tabs 03/29/22 06/13/22 Rx omeprazole 20 mg capsule,delayed 20 mg PO DAILY #90 caps 03/29/22 06/13/22 Rx release acetaminophen 325 mg tablet 650 mg PO QID PRN Pain 05/10/22 06/13/22 History (Tylenol) duloxetine 30 mg capsule,delayed 30 mg PO DAILY #90 caps 05/10/22 06/13/22 Rx release tramadol 50 mg tablet 50 mg PO Q8H PRN pain #90 tabs 06/06/22 06/13/22 Rx Patient History Medical History Acid reflux disease Balance problems Current chronic use of systemic steroids Degenerative cervical spinal stenosis Dementia Depression Diminished pulses in lower extremity Gait abnormality Generalized anxiety disorder High risk medication use Hyperlipidemia Hypertension Insomnia Lumbar radiculopathy Nocturia Open fracture of right elbow with routine healing Osteoporosis Pneumonia due to COVID-19 virus Rheumatoid arthritis Spinal stenosis, lumbar region with neurogenic claudication TMJ arthritis Urinary incontinence Surgical History H/O colonoscopy H/O esophagogastroduodenoscopy H/O left wrist surgery History of ankle surgery bilateral History of appendectomy History of tubal ligation Hx of cholecystectomy Hx of tonsillectomy Status post hip surgery March 2019-right Family History Father Diabetes Mother Stroke syndrome Uterine cancer Brother Malignant neoplasm of body of pancreas Malignant Pancreatic Neoplasm Colorectal cancer Sister Malignant neoplasm of body of pancreas Malignant Pancreatic Neoplasm Myocardial infarction Denies family history of Ovarian cancer Prostate cancer Breast cancer Social History Smoking Status: Former smoker Tobacco Type: Cigarettes Age Started Using Tobacco: 14; Age Quit Using Tobacco: 18; packs per day: 0.5; Second Hand Exposure: No; Hx Alcohol Use: No Hx Substance Use: No Preferred Language: Kazakh Communication Ability: Effective Visual Impairment: Partially Limited Hearing Ability: Hard of Hearing Online Trader Required: No Beliefs That Will Affect Care: None marital status: Current Living Situation: Spouse current occupational status: retired 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 How many Children do You have: 3 Other Information That Helps Us Care for You: No Feels Safe at Home: Yes Safety Concerns: Feels Safe At This Time Childhood Exposure to Second-Hand Smoke: Yes caffeine: Yes (tea) Dental Care, Regularly: Yes Physical Activity Frequency: 1-2 Times per Week Physical Activity Frequency Comment: gardening Seatbelt Use: never Sunscreen Use: No Do you think of yourself as: straight/heterosexual Assistive Devices: Raised Toilet Seat and Walker Review of Systems Constitutional: as per Subjective / HPI Physical Exam Constitutional: WD/WN, vitals as above Neurologic: grossly normal Psychiatric: A+Ox3, euthymic affect Results & Data ([facility]) Vital Signs (Past 12 Hours) Vital Signs Temp Pulse Pulse Resp BP Pulse Ox O2 Del Method 06/17/22 04:00 98.2 F 110 H 18 144/89 H 94 Room Air 06/17/22 01:26 73 06/16/22 22:51 98.2 F 83 18 179/89 H 96 Room Air 06/16/22 19:00 98.4 F 86 18 171/95 H 91 Room Air PG Care Time/CCT Total # of Minutes Spent Total Time Spent: 40 Total Time Spent with Patient: Total time spent is greater than 50% in coordination of care (as documented) at patient's floor/unit and/or counseling patient: Coding Level of Care Code 13599 Initial Inpt Care Lvl 2 Diagnoses Thickened endometrium R93.89 Abnormal finding present on diagnostic imaging of uterus R93.89
[2022-06-17 07:05] LABS: Basophils # (auto) 0.07 K/uL (0-0.2); Basophils % (auto) 0.9 %; Eosinophils # (auto) 0.19 K/uL (0-0.50); Eosinophils % (auto) 2.5 %; Hematocrit (blood only) 34.4 % (34.1-44.9); Hemoglobin 11.7 g/dl (12.0-16.0); Immature Granulocytes # (auto) 0.06 K/uL (0.00-0.02); Immature Granulocytes % (auto) 0.8 %; Lymphocytes # (auto) 2.34 K/uL (1.2-3.4); Lymphocytes % (auto) 31.2 %; Mean Corpuscular Hemoglobin 33.5 pg (25.0-34.0); Mean Corpuscular Volume 98.6 fL (80.0-100.0); Mean Platelet Volume 9.1 fL (9.4-12.3); Monocytes # (auto) 0.83 K/uL (0.24-0.82); Monocytes % (auto) 11.1 %; Neutrophils # (auto) 4.01 K/uL (1.4-6.5); Neutrophils % (auto) 53.5 %; Platelet Count 201 K/uL (130-400); RDW Coefficient of Variation 15.3 % (11.5-14.5); RDW Standard Deviation 52.9 fL (36.4-46.3); Red Blood Count 3.49 M/uL (3.93-5.22)
[2022-06-17 07:32] LABS: Albumin Globulin Ratio 1.6 (0.9-2); Albumin Level 3.7 gm/dl (3.4-5.0); Bilirubin,Total 0.4 mg/dl (0.2-1.0); Calcium 8.4 mg/dl (8.5-10.1); Creatinine Clr Calc Pharmacy 68.6 ml/min; Est GFR (African American) 101.2 ml/min; Est GFR (Non-African American) 87.3 ml/min; Globulin 2.3 gm/dl (2.5-4.0); Magnesium 1.7 mg/dl (1.7-2.4); Phosphorus 2.5 mg/dl (2.5-4.9); Potassium 3.2 mmol/L (3.5-5.1)
[2022-06-17] MEDS ORDERED: POTASSIUM CHLORIDE CRTAB 20 MEQ TABCR PO STA (08:12)
[2022-06-17] MEDS: PANTOprazole 40 MG in SYRINGE 0 ML IV SCH (08:51)
[2022-06-17] MEDS: ATORVASTATIN 20 MG TAB PO SCH (08:51)
[2022-06-17] MEDS: DOCUSATE SODIUM 100 MG CAP PO SCH (08:52)
[2022-06-17] MEDS: CYANOCOBALAMIN (B-12) 500 MCG TABLET PO SCH (08:52)
[2022-06-17] MEDS: FOLIC ACID 1 MG TAB PO SCH (08:52)
[2022-06-17] MEDS: ASPIRIN 81 MG ECTAB PO SCH (08:52)
[2022-06-17] MEDS: sulfaSALAzine 500 MG TABLET PO SCH (08:52)
[2022-06-17] MEDS: amLODIPine BESYLATE 5 MG TAB PO SCH (08:52)
[2022-06-17] MEDS: predniSONE 5 MG TAB PO SCH (08:52)
[2022-06-17] MEDS: DULoxetine HCL 30 MG CAP PO SCH (08:52)
[2022-06-17] MEDS: rOPINIRole HCL 0.25 MG TABLET PO SCH (08:53)
[2022-06-17] MEDS: DONEPEZIL HCL 10 MG TAB PO SCH (08:53)
[2022-06-17] MEDS: busPIRone 5 MG TAB PO SCH (08:53)
[2022-06-17] MEDS: ENOXAPARIN INJ 40 MG/0.4 ML SYR SQ SCH (08:53)
[2022-06-17] MEDS: BACLOFEN 10 MG TAB PO SCH (09:03)
--- NOTE | 2022-06-17 10:36 | Discharge Summary ---
Date of Service June 17, 2022 Admission HPI Per Admitting Provider The patient is a 76-year-old female with a past medical history including lumbar spinal stenosis, dementia, GERD, gait abnormality, generalized anxiety disorder, high hyperlipidemia, hypertension, insomnia, lumbar radiculopathy, osteoporosis and rheumatoid arthritis. She presents as noted above. She Principal Diagnosis Cellulitis Discharge Exam Constitutional and general: No acute distress, looks biologic age Head and face: No puffiness, atraumatic Eyes: No scleral icterus, extraocular movements normal Neck: Supple, no JVD Musculoskeletal: No acute joint swelling, no bony abnormalities Skin/dermatologic/integument: No rash, no purpura Hematologic and lymphatic: pallor +, no petechia Gastrointestinal/abdomen: Nondistended, soft, nonacute Neurologic: Cranial nerves intact, nonfocal Psychiatry: Awake, alert, pleasant, communicative Cardiovascular: Heart rhythm regular, no rub, no murmur, no gallop Respiratory: Chest movements equal, no use of accessory muscles, no adventitious sounds Extremities: Left foot edema and erythema nearly resolved Vital Signs Temp Pulse Pulse Resp BP BP Pulse Ox 06/17/22 08:52 36.6 C 91 H 16 156/86 H 95 06/17/22 08:05 79 06/17/22 04:00 36.8 C 110 H 18 144/89 H 94 06/17/22 01:26 73 06/16/22 22:51 36.8 C 83 18 179/89 H 96 06/16/22 19:00 36.9 C 86 18 171/95 H 91 06/16/22 15:44 36.8 C 85 18 156/73 H 99 06/16/22 11:25 36.8 C 91 H 18 139/79 97 O2 Del Method 06/17/22 08:52 Room Air 06/17/22 08:05 06/17/22 04:00 Room Air 06/17/22 01:26 06/16/22 22:51 Room Air 06/16/22 19:00 Room Air 06/16/22 15:44 Room Air 06/16/22 11:25 Room Air Intake and Output 06/16/22 06/17/22 06/17/22 22:59 06:59 14:59 Intake Total 1150 / 1320 170 / 1320 Balance 1150 / 1320 170 / 1320 Intake: IV 510 / 580 70 / 580 Potassium Phosphate 30 mmol In 510 / 510 Sodium Chloride 0.9% 500 ml @ 88 mls/hr IV ONE ONE Rx#: [id number] cefTRIAXone SODIUM 2,000 mg In 70 / 70 Dextrose 5% 50 ml @ 100 mls/hr IV Q24H [facility] Rx#:[id number] Oral 640 / 740 100 / 740 Other: Weight 65.4 kg Patient Weight 06/18/22 06:59 Weight 65.4 kg Discharge Data Allergies Allergy/AdvReac Type Severity Reaction Status Date / Time No Known Drug Allergies Allergy NKDA Verified 06/13/22 01:20 Consultations 06/13/22 01:16 ED Decision to Admit Stat 06/13/22 12:22 Consult Gastroenterology Routine 06/13/22 14:03 Consult Orthopedic Surgery Routine 06/16/22 09:14 Consult Gynecology Routine Procedures Performed Operation Date: 06/14/22 16:45 Actual Procedures p EGD Biopsy Cytology - Brooke Barajas DO Ordered Studies 06/12/22 22:23 CT abd pelvis wo con Urgent CT head/brain wo con Urgent 06/15/22 17:15 US pelvic complete Routine US transvaginal Routine Hospital Course (1) Cellulitis of left leg: Resolved; amoxicillin at discharge (2) Rheumatoid arthritis: Continue folic acid, sulfasalazine, baclofen, gabapentin and prednisone On methotrexate as outpatient Continue home regimen (3) Dementia: Continue donepezil (4) Hyperlipidemia: Continue atorvastatin 20 mg daily (5) Hypertension: Continue amlodipine (6) Generalized anxiety disorder: Generalized anxiety disorder/depression- Continue buspirone and duloxetine 30 mg daily (7) Depression: See above (8) Ambulatory dysfunction: Consult PT/OT prior to discharge (9) Gastric distention: EGD noted, continue PPI; GI follow-up (10) Thickened endometrium: ROAD CONSULTANT consult appreciated, outpatient follow-up (11) Electrolyte abnormality: Replace potassium, encourage banana every day (12) Fixation hardware in foot: Orthopedic follow-up; based on course lucency does not appear to be infective Total Time Total Time Spent Total Time Spent (In Minutes): 32 Discharge Plan Discharge Items Patient Disposition: Home - Self-Care Reason For Visit: headache Discharge Diagnosis: Cellulitis Activity: Resume your previous activity Non-emergency contact: Primary Care Provider Call non-emergency contact if: your symptoms worsen Follow-up/Referrals: Peyton Flannery MD, FACOG [Physician] - (Seen in the hospital, call to make appointment) Whitney Cardona MD [Primary Care Provider] - Beto Ge DO [Surgeon] - (Possible loosening hardware, left footin about 2 to 4 weeks) Brooke Barajas DO [Physician] - (Seen in the hospital, follow-up for biopsy results and general follow-up in about 1 month) Gayla Sauceda MD, PhD [Physician] - (Known to you, routine follow-up, rheumatoid arthritis, osteoporosis) Diet: Heart Healthy Diet Texture: Easy to Chew Addtl Attending Provider Instructions: Eat 1 banana daily; Take your scheduled methotrexate dose today; Addtl Patient Relations Liaison Provider Instructions: ROAD CONSULTANT APPT tentatively planned for 07/18 around 10am, I want to do an u/s in our office before I see you that day. The office will call you with arrival time for u/s and visit with me OR you can call them at [phone]. Peyton Flannery MD, [facility]. Our office is in building in front of hospital, 3rd floor, [address]. Pending Studies at Discharge: No Stand-Alone Forms: [facility] Sm[facility] Cessation Medications and DC Order Prescriptions: New pantoprazole 40 mg tablet,delayed release (DR/EC) 40 mg PO DAILY Qty: 30 0RF amoxicillin 500 mg capsule 500 mg PO TID 4 Days Qty: 12 0RF Continued aspirin 81 mg tablet,delayed release (DR/EC) 81 mg PO DAILY Qty: 30 2RF prednisone 5 mg tablet 5 mg PO DAILY Qty: 90 0RF denosumab 60 mg/mL syringe 60 mg SQ .COMPLEX Qty: 1 0RF Rx Instructions: 60 mg subcut EVERY 6 MONTHS; donepezil 10 mg tablet 10 mg PO DAILY Qty: 30 2RF baclofen 10 mg tablet 5 mg PO BID Qty: 60 2RF atorvastatin 20 mg tablet 20 mg PO DAILY Qty: 90 3RF cyanocobalamin (vitamin B-12) 1,000 mcg tablet 1,000 mcg PO DAILY Qty: 100 3RF buspirone 10 mg tablet 10 mg PO BID Qty: 180 3RF amlodipine 5 mg tablet 5 mg PO DAILY Qty: 90 3RF tramadol 50 mg tablet 50 mg PO Q8H PRN (Reason: pain) Qty: 90 0RF sulfasalazine [Azulfidine] 500 mg tablet 1 gm PO DAILY Rx Instructions: give with food (meal/snack) methotrexate sodium 5 mg tablet 30 mg PO .COMPLEX Qty: 30 2RF Rx Instructions: 30 mg PO sundays; acetaminophen [Tylenol] 325 mg tablet 650 mg PO QID PRN (Reason: Pain) duloxetine 30 mg capsule,delayed release(DR/EC) 30 mg PO DAILY Qty: 90 3RF Rx Instructions: replaces escitalopram folic acid 1 mg tablet 3 mg PO DAILY Qty: 90 3RF gabapentin 100 mg capsule 400 mg PO HS ropinirole 0.25 mg tablet See Rx Instructions PO .COMPLEX Rx Instructions: 1 po qam and 2 HS PO; mometasone 0.1 % solution 1 applic topical DAILY PRN (Reason: skin irritation) Qty: 60 0RF Discontinued omeprazole 20 mg capsule,delayed release(DR/EC) 20 mg PO DAILY Qty: 90 3RF Discharge Orders: Discharge Order (Routine); Ordered 06/17/22 Ordered By: Aramis Belle Admission Data Admit Date/Time: 06/13/22 01:37 Attending Provider: Aramis Belle Admit Provider: Dirk Hurt Primary Care Provider: Whitney Cardona Other Providers: Dirk Hurt ; Brooke Barajas Christopher J. ; Peyton Flannery Coding Level of Care Code D/C DAY MANAGEMENT >30 MINS Diagnoses Cellulitis of left leg L03.116 Rheumatoid arthritis M06.9 Rheumatoid arthritis location: unspecified site Rheumatoid factor presence: unspecified presence Dementia F03.90 Hyperlipidemia E78.2 Hyperlipidemia type: mixed hyperlipidemia Hypertension I10 Hypertension type: essential hypertension Generalized anxiety disorder F41.1 Depression F32.9 Ambulatory dysfunction R26.2 Gastric distention K31.89 Thickened endometrium R93.89 Electrolyte abnormality E87.8 Fixation hardware in foot Z96.7
== END 2022-06-17 13:24 | disposition home or self-care (01) | DRG 603 ==
LOC: ED 22:04 → EDINP 06-13 01:37 → SUATTDRO 06-13 01:37 → 2N 06-13 04:00

== ENCOUNTER 2023-07-16 13:36 | Observation (INO) ==
--- NOTE | 2023-07-16 13:51 | ED Triage Note ---
Date of Service July 16, 2023 History of Present Illness This patient was briefly evaluated while in triage. An abbreviated physical exam was performed. This patient is a 77-year-old Female who presents to the ED for evaluation of feeling unwell. She's is nauseated and with chills. Symptoms for about a week. Urinating more frequently than normal. No sick exposures. Was at [facility] a week ago and had low potassium. Physical Exam Limited Triage Exam: VITALS: Vitals are noted on the nurse's note and reviewed by myself. Vital signs stable. GENERAL: Elderly white female who appears ill on presentation HEART: Regular rate and rhythm . LUNGS: Clear to auscultation bilaterally without wheezes, rales or rhonchi. NEURO: Patient was alert and oriented to person place and time. CN II through XII grossly intact. Initial orders for labs and / or imaging were placed and patient was placed in the waiting area until a bed is available. Please see further documentation for the full ED course. MDM / Impression Impression Impression: Weakness, Elevated troponin I level, Hypomagnesemia
[2023-07-16] MEDS ORDERED: amLODIPine BESYLATE 5 MG TAB PO ONE (14:10)
[2023-07-16] MEDS ORDERED: ONDANSETRON INJ 2 MG/ML 2 ML VIAL IV STA (14:10)
--- NOTE | 2023-07-16 14:16 | Emergency Department Note ---
Impression & Plan Weakness, Elevated troponin I level, Hypomagnesemia ED Provider Note NAME: JAMEY KIMBALL AGE: 77 SEX: F : 1945 ARRIVES VIA: Walk-In INFORMANT: Patient, the patient's [id number] ED PROVIDER(S): Raul De León DO CHIEF COMPLAINT: Pain HPI: The patient is a 77-year-old female who presented to the emergency department with multiple complaints. The patient has been complaining of abdominal pain weakness headache pain all over her body as well as nausea. She states has been going on for approximately 1 week. She was recently admitted to [facility]. At that time she had severe electrolyte abnormalities. She was treated and was able to be discharged home. Her previous family doctor had retired. She called today to have an appointment and was told she should go to the emergency department to be admitted to the hospital although the patient does not know why. She states she being tested for Parkinson's. The patient denies having any chest pain. She does complain of shortness of breath as well as leg swelling and leg pain. She states she has not been taking her medications recently because of the nausea. ROS: See above HPI for pertinent positives & negatives. A total of 10 systems reviewed and were otherwise negative. PAST MEDICAL HISTORY: See Below PAST SURGICAL HISTORY: See Below FAMILY HISTORY: See Below SOCIAL HISTORY: See Below HOME MEDICATIONS: See Below ALLERGIES: See Below VITALS: See Below PHYSICAL EXAMINATION: GENERAL: The patient is awake and alert. The patient is somewhat anxious pain. EYES: The conjunctivae are clear. The pupils are round and reactive. EARS, NOSE, MOUTH AND THROAT: The nose is without any evidence of any deformity. Mucous membranes are moist. NECK: The neck is nontender and supple. RESPIRATORY: Normal respiratory effort is noted there is no evidence of wheezing rhonchi or rales CARDIOVASCULAR: Regular rate and rhythm noted there no murmurs rubs or gallops normal S1 normal S2. GASTROINTESTINAL: The abdomen is soft. Abdomen is nontender. MUSCULOSKELETAL/EXTREMITIES: There is no evidence of gross deformity full range of motion is noted in the hips and shoulders. SKIN: Trace pedal edema was noted bilaterally. Skin is warm and dry. NEUROLOGIC: Patient is awake alert and oriented x3. Strength was diminished but symmetric. MEDICAL DECISION MAKING: The patient is a 77-year-old female who presented to the emergency department with multiple complaints. The patient was felt to be in need of admission and this was why she presented to our emergency department. She was recently admitted to a different facility for similar complaints. She was found to have multiple electrolyte abnormalities. She was very anxious upon arrival. I discussed patient's laboratory and radiographic studies with her. She was found to have an elevation in her troponin although EKG shows no acute changes and she does not describe any acute chest pain. Troponin was drawn twice. There is no acute changes. Given the patient's presentation I discussed her condition with the on-call [facility] hospitalist. They were notified and will evaluate the patient in the emergency department. Triage Nursing notes reviewed. Prior medical records reviewed Vital Signs: reviewed and remarkable for elevated blood pressure. Differential diagnosis: Infection, dehydration, metabolic abnormality, hypo/hyperglycemia, electrolyte disturbance, anemia, hypoxia, cardiac sources, intracerebral event, toxicologic, neurologic, as well as other pathologies. ER treatment provided: See below Diagnostics interpreted by me: ECG: EKG was obtained in the emergency department. My interpretation is normal sinus rhythm at 91 bpm. There is no ectopy. There is no acute ST segment abno rmalities noted. This was compared to a tracing from June 12, 2022. No changes were noted Cardiac Monitoring: An order was placed for continuous cardiac monitoring. The monitor shows a rate of 86 bpm with sinus rhythm. Laboratory studies: As stated above and show below. Imaging studies: See below. Radiographic imaging was reviewed by myself Consultation(s): Dr. Sloan who is on-call for the [facility] was notified about the patient. I discussed this case with Dr. Fields as well who is on for the [facility]. 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 elbow History of robot-assisted laparoscopic hysterectomy BSO, nov 2022, endometritis, no cancer History of tubal ligation Hx of cholecystectomy Hx of tonsillectomy S/P implantation of urinary electronic stimulator device Bladder stimulator No longer using/works ("needs to be taken out")- OR aware Status post hip surgery March 2019-right Family History Father Diabetes Mother Stroke syndrome Uterine cancer Brother Malignant neoplasm of body of pancreas Malignant Pancreatic Neoplasm Colorectal cancer Sister Malignant neoplasm of body of pancreas Malignant Pancreatic Neoplasm Myocardial infarction Denies family history of Ovarian cancer Prostate cancer Breast cancer Social History Smoking Status: Never smoker Tobacco Type: Cigarettes Age Started Using Tobacco: 14; Age Quit Using Tobacco: 18; packs per day: 0.5; Second Hand Exposure: No; Do You Dip or Chew Tobacco: No; Hx Alcohol Use: No Hx Substance Use: No Preferred Language: Swedish Communication Ability: Effective Visual Impairment: Partially Limited Hearing Ability: Hard of Hearing Thread Reeler Required: No Beliefs That Will Affect Care: None marital status: Current Living Situation: Spouse current occupational status: retired 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 How many Children do You have: 3 Feels Safe at Home: Yes Childhood Exposure to Second-Hand Smoke: Yes Diet: regular caffeine: Yes (tea) during the past year weight has: remained stable Dental Care, Regularly: Yes Physical Activity Frequency: Does not Exercise Seatbelt Use: never Sunscreen Use: No Do you think of yourself as: straight/heterosexual Gender Identity: Female Assistive Devices: Denture - Upper, Glasses, Raised Toilet Seat and Walker Allergies Allergies Allergy/AdvReac Type Severity Reaction Status Date / Time No Known Drug Allergies Allergy NKDA Verified 06/07/23 12:59 Home Meds Home Medications Medication Instructions Recorded Confirmed sulfasalazine 500 mg tablet 1 gm PO QAM 07/21/20 07/16/23 (Azulfidine) aspirin 81 mg tablet,delayed 81 mg PO QAM 09/18/22 07/16/23 release baclofen 10 mg tablet 5 - 10 mg PO UD 09/18/22 07/16/23 denosumab 60 mg/mL subcutaneous 60 mg subcut UD 09/18/22 07/16/23 syringe donepezil 10 mg tablet 10 mg PO QAM 09/18/22 07/16/23 folic acid 1 mg tablet 3 mg PO QAM 09/18/22 07/16/23 leflunomide 10 mg tablet 10 mg PO QAM 09/18/22 07/16/23 prednisone 5 mg tablet 5 mg PO QAM 09/18/22 07/16/23 ropinirole 0.25 mg tablet 0.5 - 0.75 mg PO UD 09/18/22 07/16/23 loperamide 2 mg tablet 2 mg PO QID PRN diarrhea 07/08/23 07/16/23 (Anti-Diarrheal (loperamide)) potassium chloride 10 mEq 30 meq PO DAILY 07/08/23 07/16/23 tablet,extended release Previous Rx's Medication Instructions Recorded mometasone 0.1 % topical solution 1 applic topical DAILY PRN skin 12/29/22 irritation #60 mL duloxetine 30 mg capsule,delayed 30 mg PO QAM #90 caps 03/04/23 release buspirone 10 mg tablet 10 mg PO TID #270 tabs 04/04/23 amlodipine 5 mg tablet 5 mg PO QAM #90 tabs 05/01/23 pantoprazole 40 mg tablet,delayed 40 mg PO QAM #90 tabs 06/03/23 release cyanocobalamin (vitamin B-12) 1,000 mcg PO QAM #90 tabs 06/07/23 1,000 mcg tablet gabapentin 300 mg capsule 300 mg PO BID #180 caps 06/20/23 atorvastatin 20 mg tablet 20 mg PO QAM #90 tabs 06/26/23 tramadol 50 mg tablet 50 mg PO Q8H PRN pain #90 tabs 07/08/23 Results & Data (ED) Vital Signs Vital Signs - 24 hr 07/16/23 13:46 07/16/23 14:03 07/16/23 14:59 Temperature 36.9 C Temperature Source Temporal Artery Scan Pulse Rate 103 H 96 H Pulse Rate [Apical] 80 Pulse Rhythm [Apical] Pulse Strength [Apical] Respiratory Rate 16 18 Respiratory Effort / Characteristics Non-Labored Spontaneous Respiratory Depth Normal Blood Pressure 209/128 H Blood Pressure [Right Arm] 199/99 H Blood Pressure Mean 155 Blood Pressure Mean [Right Arm] 132 Blood Pressure Position [Right Arm] Lying Pulse Oximetry 95 97 Oxygen Delivery Method Room Air Room Air Sepsis Recent Fever Within 48 Hours No Sepsis New/Unexplained Change in Mental Status No Sepsis Action Taken by Nursing No Action Required 07/16/23 14:59 07/16/23 16:57 07/16/23 18:00 Temperature Temperature Source Pulse Rate 79 Pulse Rate [Apical] 87 88 Pulse Rhythm [Apical] Regular Regular Pulse Strength [Apical] Normal Normal Respiratory Rate 18 18 17 Respiratory Effort / Characteristics Non-Labored Spontaneous Non-Labored Spontaneous Respiratory Depth Normal Normal Blood Pressure Blood Pressure [Right Arm] 196/100 H 185/102 H Blood Pressure Mean Blood Pressure Mean [Right Arm] 132 129 Blood Pressure Position [Right Arm] Pulse Oximetry 97 99 95 Oxygen Delivery Method Room Air Room Air Room Air Sepsis Recent Fever Within 48 Hours Sepsis New/Unexplained Change in Mental Status Sepsis Action Taken by Nursing 07/16/23 19:00 Temperature Temperature Source Pulse Rate Pulse Rate [Apical] 86 Pulse Rhythm [Apical] Regular Pulse Strength [Apical] Respiratory Rate 20 Respiratory Effort / Characteristics Non-Labored Respiratory Depth Normal Blood Pressure Blood Pressure [Right Arm] 183/103 H Blood Pressure Mean Blood Pressure Mean [Right Arm] 129 Blood Pressure Position [Right Arm] Pulse Oximetry 98 Oxygen Delivery Method Sepsis Recent Fever Within 48 Hours Sepsis New/Unexplained Change in Mental Status Sepsis Action Taken by Residential Medications Current Medication List: was personally reviewed by me Laboratory Data Attestation: I reviewed the patient's lab results. 07/16/23 14:08 07/16/23 14:08 Lab Results 07/16/23 07/16/23 07/16/23 Range/Units 14:08 14:08 14:08 WBC 7.49 (4.8-10.8) K/ul RBC 3.56 L (4.20-5.40) M/uL Hgb 11.2 L (12.0-16.0) g/dl Hct 34.3 L (37.0-47.0) % MCV 96.3 (80.0-100.0) fL MCH 31.5 (25.0-34.0) pg MCHC 32.7 (32.0-36.0) g/dL RDW Std Deviation 55.4 H (36.4-46.3) fL RDW Coeff of [place] 15.9 H (11.5-14.5) % Plt Count 254 (130-400) K/uL MPV 9.1 L (9.4-12.4) fL Immature Gran % (Auto) 0.7 % Neut % (Auto) 51.5 % Lymph % (Auto) 33.1 % [place] % (Auto) 12.3 % Eos % (Auto) 1.3 % Baso % (Auto) 1.1 % Neut # (Auto) 3.86 (1.40-6.50) K/uL Lymph # (Auto) 2.48 (1.2-3.4) K/uL [place] # (Auto) 0.92 H (0.11-0.59) K/uL Eos # (Auto) 0.10 (0-0.50) K/uL Baso # (Auto) 0.08 (0-0.2) K/uL Immature Gran # (Auto) 0.05 (0.01-0.20) K/uL Sodium 141 (136-145) mmol/L Potassium 3.6 (3.5-5.1) mmol/L Chloride 103 (98-107) mmol/L Carbon Dioxide 26 (21-32) mmol/L Anion Gap 12 H (3-11) BUN 14 (6-23) mg/dl Creatinine 0.89 (0.6-1.2) mg/dl Est Cr Clr Drug Dosing Not Reportable Est GFR ( Amer) 71.4 ml/min Est GFR (Non-Af Amer) 61.6 ml/min BUN/Creatinine Ratio 15.7 (10-20) Glucose 91 (70-99(Fasting)) mg/dl Lactate (0.4-2.0) mmol/L Calcium 11.4 H (8.6-10.3) mg/dl Phosphorus (2.5-4.9) mg/dl Magnesium 1.9 (1.7-2.4) mg/dl Total Bilirubin 0.7 (0.2-1.0) mg/dl Direct Bilirubin 0.1 (0-0.2) mg/dl AST 20 (13-39) U/L ALT 14 (7-52) U/L Alkaline Phosphatase 60 (34-104) U/L Total Creatine Kinase (26-192) U/L Troponin I High Sens 14.1 H (0-14) pg/ml Total Protein 7.0 (6.0-8.3) gm/dl Albumin 4.2 (3.4-5.0) gm/dl 25-OH Vitamin D Total (30-100) ng/ml Procalcitonin < 0.05 (0-0.5) ng/ml Urine Color Urine Appearance (Clear) Urine pH (4.5-7.5) Ur Specific Ferguson (1.000-1.030) Urine Protein (Negative) Urine Glucose (UA) (Negative) Urine Ketones (Negative) Urine Blood (Negative) Urine Nitrite (Negative) Urine Bilirubin (Negative) Urine Urobilinogen (Negative) Ur Leukocyte Esterase (Negative) 07/16/23 07/16/23 07/16/23 Range/Units 14:08 14:38 16:35 WBC (4.8-10.8) K/ul RBC (4.20-5.40) M/uL Hgb (12.0-16.0) g/dl Hct (37.0-47.0) % MCV (80.0-100.0) fL MCH (25.0-34.0) pg MCHC (32.0-36.0) g/dL RDW Std Deviation (36.4-46.3) fL RDW Coeff of [place] (11.5-14.5) % Plt Count (130-400) K/uL MPV (9.4-12.4) fL Immature Gran % (Auto) % Neut % (Auto) % Lymph % (Auto) % [place] % (Auto) % Eos % (Auto) % Baso % (Auto) % Neut # (Auto) (1.40-6.50) K/uL Lymph # (Auto) (1.2-3.4) K/uL [place] # (Auto) (0.11-0.59) K/uL Eos # (Auto) (0-0.50) K/uL Baso # (Auto) (0-0.2) K/uL Immature Gran # (Auto) (0.01-0.20) K/uL Sodium (136-145) mmol/L Potassium (3.5-5.1) mmol/L Chloride (98-107) mmol/L Carbon Dioxide (21-32) mmol/L Anion Gap (3-11) BUN (6-23) mg/dl Creatinine (0.6-1.2) mg/dl Est Cr Clr Drug Dosing Est GFR ( Amer) ml/min Est GFR (Non-Af Amer) ml/min BUN/Creatinine Ratio (10-20) Glucose (70-99(Fasting)) mg/dl Lactate 2.2 H* 1.0 (0.4-2.0) mmol/L Calcium (8.6-10.3) mg/dl Phosphorus (2.5-4.9) mg/dl Magnesium (1.7-2.4) mg/dl Total Bilirubin (0.2-1.0) mg/dl Direct Bilirubin (0-0.2) mg/dl AST (13-39) U/L ALT (7-52) U/L Alkaline Phosphatase (34-104) U/L Total Creatine Kinase (26-192) U/L Troponin I High Sens (0-14) pg/ml Total Protein (6.0-8.3) gm/dl Albumin (3.4-5.0) gm/dl 25-OH Vitamin D Total 48.4 (30-100) ng/ml Procalcitonin (0-0.5) ng/ml Urine Color Urine Appearance (Clear) Urine pH (4.5-7.5) Ur Specific Ferguson (1.000-1.030) Urine Protein (Negative) Urine Glucose (UA) (Negative) Urine Ketones (Negative) Urine Blood (Negative) Urine Nitrite (Negative) Urine Bilirubin (Negative) Urine Urobilinogen (Negative) Ur Leukocyte Esterase (Negative) 07/16/23 07/16/23 07/16/23 Range/Units 16:53 17:43 17:44 WBC (4.8-10.8) K/ul RBC (4.20-5.40) M/uL Hgb (12.0-16.0) g/dl Hct (37.0-47.0) % MCV (80.0-100.0) fL MCH (25.0-34.0) pg MCHC (32.0-36.0) g/dL RDW Std Deviation (36.4-46.3) fL RDW Coeff of [place] (11.5-14.5) % Plt Count (130-400) K/uL MPV (9.4-12.4) fL Immature Gran % (Auto) % Neut % (Auto) % Lymph % (Auto) % [place] % (Auto) % Eos % (Auto) % Baso % (Auto) % Neut # (Auto) (1.40-6.50) K/uL Lymph # (Auto) (1.2-3.4) K/uL [place] # (Auto) (0.11-0.59) K/uL Eos # (Auto) (0-0.50) K/uL Baso # (Auto) (0-0.2) K/uL Immature Gran # (Auto) (0.01-0.20) K/uL Sodium (136-145) mmol/L Potassium (3.5-5.1) mmol/L Chloride (98-107) mmol/L Carbon Dioxide (21-32) mmol/L Anion Gap (3-11) BUN (6-23) mg/dl Creatinine (0.6-1.2) mg/dl Est Cr Clr Drug Dosing Est GFR ( Amer) ml/min Est GFR (Non-Af Amer) ml/min BUN/Creatinine Ratio (10-20) Glucose (70-99(Fasting)) mg/dl Lactate (0.4-2.0) mmol/L Calcium (8.6-10.3) mg/dl Phosphorus 3.5 (2.5-4.9) mg/dl Magnesium (1.7-2.4) mg/dl Total Bilirubin (0.2-1.0) mg/dl Direct Bilirubin (0-0.2) mg/dl AST (13-39) U/L ALT (7-52) U/L Alkaline Phosphatase (34-104) U/L Total Creatine Kinase 31 (26-192) U/L Troponin I High Sens 14.4 H (0-14) pg/ml Total Protein (6.0-8.3) gm/dl Albumin (3.4-5.0) gm/dl 25-OH Vitamin D Total (30-100) ng/ml Procalcitonin (0-0.5) ng/ml Urine Color Yellow Urine Appearance Clear (Clear) Urine pH 8.5 H (4.5-7.5) Ur Specific [place] 1.019 (1.000-1.030) Urine Protein Negative (Negative) Urine Glucose (UA) Negative (Negative) Urine Ketones Trace H (Negative) Urine Blood Negative (Negative) Urine Nitrite Negative (Negative) Urine Bilirubin Negative (Negative) Urine Urobilinogen Negative (Negative) Ur Leukocyte Esterase Negative (Negative) Administered Medications Buspirone HCl (Buspirone 5 Mg Tab) 10 mg PO TID JEANIE Stop: 08/15/23 20:59 Last Admin: 07/16/23 20:27 Dose: 10 mg Documented By: AG Gabapentin (Gabapentin 300 Mg Cap) 300 mg PO BID JEANIE Stop: 08/15/23 20:59 Last Admin: 07/16/23 20:26 Dose: 300 mg Documented By: AG Ropinirole HCl (Ropinirole Hcl 0.25 Mg Tablet) 0.75 mg PO HS [facility] Stop: 08/15/23 20:59 Last Admin: 07/16/23 20:28 Dose: 0.75 mg Documented By: AG Tramadol HCl (Tramadol Hcl 50 Mg Tablet) 50 mg PO Q8H PRN PRN Reason: pain Stop: 08/15/23 19:01 Last Admin: 07/16/23 20:28 Dose: 50 mg Documented By: AG Discontinued Medications Amlodipine Besylate (Amlodipine Besylate 5 Mg Tab) 10 mg PO NOW ONE Stop: 07/16/23 14:11 Last Admin: 07/16/23 15:07 Dose: 10 mg Documented By: EVA Sodium Chloride (Nss 1000ml) 1,000 mls @ 999 mls/hr IV .Q1H1M ONE Stop: 07/16/23 16:19 Last Infusion: 07/16/23 18:58 Dose: 0 mls/hr Documented By: Admin: 07/16/23 15:26 Dose: 999 mls/hr Documented By: EVA Ioversol (Optiray 320 100ml) 91 ml IV ONCE ONE Stop: 07/16/23 16:18 Last Admin: 07/16/23 16:18 Dose: 91 ml Documented By: TROY Ondansetron HCl (Ondansetron Inj 2 Mg/Ml 2 Ml Vial) 4 mg IV NOW STA Stop: 07/16/23 14:11 Last Admin: 07/16/23 15:07 Dose: 4 mg Documented By: EVA Imaging Data Attestation: I personally reviewed and interpreted this imaging study as follows: My Impression: 1 view chest x-ray was obtained in the emergency department. My interpretation is no free air or definite infiltrate, final report below. CT of the brain was obtained in the emergency department. My interpretation is no intracranial hemorrhage or mass effect, final report below. Radiologist's Impression: Chest X-Ray 07/16/23 13:51 XR chest 1V portable HISTORY: 77 years-old Female Sepsis acute sepsis COMPARISON: 06/12/2022 TECHNIQUE: AP view of the chest FINDINGS: Cardiac mediastinal and hilar silhouettes are within normal limits. No pneumothorax, pleural effusion, airspace consolidation or pulmonary edema. Bones appear grossly intact. Endoscopy clip projects over the central upper abdomen. Partially imaged cervical spinal fusion hardware. IMPRESSION: No acute process. ACT 112: Negative or not required by law. The above report was generated using voice recognition software. It may contain grammatical, syntax or spelling errors. Electronically signed by: Chapin Cleary M.D. 07/16/2023 2:24 PM Abdomen/Pelvis CT 07/16/23 14:09 CT SCAN OF THE ABDOMEN AND PELVIS WITH IV CONTRAST CLINICAL HISTORY: Generalized abdominal pain. Weakness. COMPARISON STUDY: Abdominal CT dated 06/13/2022. TECHNIQUE: Following the IV administration of 91 cc of Optiray 320, CT scan of the abdomen and pelvis is performed from the lung bases to the proximal femora. Images are reviewed in the axial, sagittal, and coronal planes. IV contrast was administered without complication. A dose lowering technique was utilized adhering to the principles of ALARA. The examination is compromised by motion artifact. CT DOSE: 1288.27 mGy.cm FINDINGS: Lung bases: The heart is enlarged and without pericardial effusion. The coronary arteries are densely calcified. There is a tiny hiatal hernia. The lung bases are clear noting bibasilar scarring/atelectasis. Liver: The contrast-enhanced liver is normal in size, contour, and attenuation. There is minimal central intrahepatic biliary ductal dilatation. The hepatic veins and portal veins are patent. Gallbladder: Surgically absent noting clips in the gallbladder fossa. Spleen: Normal in size and attenuation. Scattered subcentimeter splenic hypodensities are pathologically indeterminant and statistically significant. Pancreas: A 9 mm simple cystic focus in the pancreatic head on image #114 likely represents a sidebranch IPMN. The pancreas is otherwise normal as imaged. Adrenal glands: Unremarkable. Kidneys: The contrast enhanced kidneys are normal in size and without hydronephrosis. The kidneys enhance symmetrically. Scattered subcentimeter cortical hypodensities likely represent cysts but are too small for definitive characterization. Abdominal vasculature: There is moderate to advanced atherosclerotic ca lcification and mild ectasia of the abdominal aorta. Bowel: Surgical clips are noted in the stomach. There is moderate to advanced diverticulosis of the left colon without CT evidence of acute diverticulitis. No bowel obstruction is seen. The appendix is not visualized. Peritoneum: There is no intraperitoneal free air or abdominal ascites. Lymphadenopathy: None. Pelvic viscera: The bladder is mildly distended but otherwise normal in appearance. The uterus is surgically absent. No adnexal lesion is seen. Skeletal structures: The skeletal structures are osteopenic. No lytic or blastic lesions are seen. There is mild to moderate lumbosacral spondylosis. There is c hronic deformity and postoperative changes noted in the right proximal femur. A sacral stimulator device is present in the left gluteal soft tissues. IMPRESSION: 1. No acute infectious or inflammatory findings are identified in the abdomen or pelvis. 2. Cardiomegaly. 3. Colonic diverticulosis without CT evidence of acute diverticulitis. 4. Additional chronic and postsurgical findings as above. ACT 112: Negative or not required by law. Electronically signed by: Jcarlos Kinney M.D. 07/16/2023 4:[address] 07/16/23 14:09 CT SCAN OF THE BRAIN WITHOUT IV CONTRAST CLINICAL HISTORY: Generalized weakness. COMPARISON STUDY: CT of the brain dated 06/13/2022. TECHNIQUE: Unenhanced axial CT scan of the brain is performed from the vertex to the skull base. A dose lowering technique was utilized adhering to the principles of ALARA. FINDINGS: Brain parenchyma: There is age-related involutional change noting moderate to advanced subcortical and periventricular microangiopathic disease. There is no hemorrhage, mass effect, or evidence of acute territorial ischemia by CT criteria. Chavez-white matter differentiation is preserved. No extra-axial fluid collection is seen. Ventricles, sulci, cisterns: Prominent secondary to involutional change. Intracranial vasculature: There is atherosclerotic calcification of the cavernous carotid and vertebral arteries. Calvarium: Unremarkable. Sinuses and mastoids: The visualized paranasal sinuses are clear. The mastoid air cells are well pneumatized. Orbits: The bony orbits are grossly intact. There is a right ocular lens implant. IMPRESSION: There is no hemorrhage, mass effect, or evidence of acute territorial ischemia by CT criteria. ACT 112: Negative or not required by law. Electronically signed by: Jcarlos Kinney M.D. 07/16/2023 4:26 PM Discharge Plan Visit Data Chief Complaint: Illness Stated Complaint: ILLNESS ED Provider: Raul DeL eón Discharge Problem: Weakness, Elevated troponin I level, Hypomagnesemia Patient Disposition: Being Evaluated by Hospitalist Discharge Instructions Interventions: ED Discharge Assessment Last Done: 07/16/23 21:40
--- NOTE | 2023-07-16 14:26 | XRay Report ---
XR chest 1V portable HISTORY: 77 years-old Female Sepsis acute sepsis COMPARISON: 06/12/2022 TECHNIQUE: AP view of the chest FINDINGS: Cardiac mediastinal and hilar silhouettes are within normal limits. No pneumothorax, pleural effusion , airspace consolidation or pulmonary edema. Bones appear grossly intact. Endoscopy clip projects ove r the central upper abdomen. Partially imaged cervical spinal fusion hardware. IMPRESSION: No acute process. ACT 112: Negative or not required by law. The above report was generated using voice recognition software. It may contain grammatical, syntax o r spelling errors. Electronically signed by: Chapin Cleary M.D. 07/16/2023 2:24 PM
[2023-07-16 14:34] LABS: Basophils # (auto) 0.08 K/uL (0-0.2); Basophils % (auto) 1.1 %; Eosinophils % (auto) 1.3 %; Hematocrit (blood only) 34.3 % (37.0-47.0); Hemoglobin 11.2 g/dl (12.0-16.0); Immature Granulocytes # (auto) 0.05 K/uL (0.01-0.20); Immature Granulocytes % (auto) 0.7 %; Lymphocytes # (auto) 2.48 K/uL (1.2-3.4); Lymphocytes % (auto) 33.1 %; Mean Corpuscular Hemoglobin 31.5 pg (25.0-34.0); Mean Corpuscular Hgb Conc 32.7 g/dL (32.0-36.0); Mean Corpuscular Volume 96.3 fL (80.0-100.0); Mean Platelet Volume 9.1 fL (9.4-12.4); Monocytes # (auto) 0.92 K/uL (0.11-0.59); Monocytes % (auto) 12.3 %; Neutrophils # (auto) 3.86 K/uL (1.40-6.50); Neutrophils % (auto) 51.5 %; Platelet Count 254 K/uL (130-400); RDW Coefficient of Variation 15.9 % (11.5-14.5); RDW Standard Deviation 55.4 fL (36.4-46.3); Red Blood Count 3.56 M/uL (4.20-5.40); White Blood Count 7.49 K/ul (4.8-10.8)
[2023-07-16 14:44] LABS: Albumin Level 4.2 gm/dl (3.4-5.0); Anion Gap 12 (3-11); Bilirubin Direct 0.1 mg/dl (0-0.2); Bilirubin,Total 0.7 mg/dl (0.2-1.0); Calcium 11.4 mg/dl (8.6-10.3); Carbon Dioxide 26 mmol/L (21-32); Chloride 103 mmol/L (98-107); Magnesium 1.9 mg/dl (1.7-2.4); Potassium 3.6 mmol/L (3.5-5.1); Sodium 141 mmol/L (136-145)
[2023-07-16 14:50] LABS: Alanine Aminotransferase 14 U/L (7-52); Alkaline Phosphatase 60 U/L (34-104); Aspartate Aminotransferase 20 U/L (13-39); BUN Creatinine Ratio 15.7 (10-20); Blood Urea Nitrogen 14 mg/dl (6-23); Est GFR (African American) 71.4 ml/min; Est GFR (Non-African American) 61.6 ml/min; Glucose 91 mg/dl (70-99(Fasting))
[2023-07-16 14:54] LABS: Troponin I High Sensitivity 14.1 pg/ml (0-14)
[2023-07-16 15:18] LABS: Adenovirus PCR Not Detected (NotDetected); Bordetella parapertussis PCR Not Detected (NotDetected); Bordetella pertussis PCR Not Detected (NotDetected); Chlamydia pneumoniae PCR Not Detected (NotDetected); Coronavirus 229E PCR Not Detected (NotDetected); Coronavirus CoV-2 (COVID19)PCR Not Detected (NotDetected); Coronavirus HKU1 PCR Not Detected (NotDetected); Coronavirus NL63 PCR Not Detected (NotDetected); Coronavirus OC43PCR Not Detected (NotDetected); Human Metapneumovirus PCR Not Detected (NotDetected); Influenza A PCR Not Detected (NotDetected); Influenza B PCR Not Detected (NotDetected); Mycoplasma pneumoniae PCR Not Detected (NotDetected); Parainfluenza Virus 1 PCR Not Detected (NotDetected); Parainfluenza Virus 2 PCR Not Detected (NotDetected); Parainfluenza Virus 3 PCR Not Detected (NotDetected); Parainfluenza Virus 4 PCR Not Detected (NotDetected); Respiratory Syncytial VirusPCR Not Detected (NotDetected); Rhinovirus/Enterovirus PCR Not Detected (NotDetected)
[2023-07-16] MEDS ORDERED: SODIUM CHLORIDE 0.9% 1000ML 1,000 ML IV ONE (15:19)
[2023-07-16] MEDS ORDERED: OPTIRAY 320 100ml IV ONE (16:17)
--- NOTE | 2023-07-16 16:28 | CT Scan Report ---
CT SCAN OF THE BRAIN WITHOUT IV CONTRAST CLINICAL HISTORY: Generalized weakness. COMPARISON STUDY: CT of the brain dated 06/13/2022. TECHNIQUE: Unenhanced axial CT scan of the brain is performed from the vertex to the skull base. A do se lowering technique was utilized adhering to the principles of ALARA. FINDINGS: Brain parenchyma: There is age-related involutional change noting moderate to advanced subcortical an d periventricular microangiopathic disease. There is no hemorrhage, mass effect, or evidence of acute territorial ischemia by CT criteria. Chavez-white matter differentiation is preserved. No extra-axial fluid collection is seen. Ventricles, sulci, cisterns: Prominent secondary to involutional change. Intracranial vasculature: There is atherosclerotic calcification of the cavernous carotid and vertebr al arteries. Calvarium: Unremarkable. Sinuses and mastoids: The visualized paranasal sinuses are clear. The mastoid air cells are well pneu matized. Orbits: The bony orbits are grossly intact. There is a right ocular lens implant. IMPRESSION: There is no hemorrhage, mass effect, or evidence of acute territorial ischemia by CT ashwin mares. ACT 112: Negative or not required by law. Electronically signed by: Jcarlos Kinney M.D. 07/16/2023 4:26 PM
--- NOTE | 2023-07-16 16:36 | CT Scan Report ---
CT SCAN OF THE ABDOMEN AND PELVIS WITH IV CONTRAST CLINICAL HISTORY: Generalized abdominal pain. Weakness. COMPARISON STUDY: Abdominal CT dated 06/13/2022. TECHNIQUE: Following the IV administration of 91 cc of Optiray 320, CT scan of the abdomen and pelvi s is performed from the lung bases to the proximal femora. Images are reviewed in the axial, sagittal , and coronal planes. IV contrast was administered without complication. A dose lowering technique wa s utilized adhering to the principles of ALARA. The examination is compromised by motion artifact. CT DOSE: 1288.27 mGy.cm FINDINGS: Lung bases: The heart is enlarged and without pericardial effusion. The coronary arteries are densely calcified. There is a tiny hiatal hernia. The lung bases are clear noting bibasilar scarring/atelect asis. Liver: The contrast-enhanced liver is normal in size, contour, and attenuation. There is minimal cent ral intrahepatic biliary ductal dilatation. The hepatic veins and portal veins are patent. Gallbladder: Surgically absent noting clips in the gallbladder fossa. Spleen: Normal in size and attenuation. Scattered subcentimeter splenic hypodensities are pathologica lly indeterminant and statistically significant. Pancreas: A 9 mm simple cystic focus in the pancreatic head on image #114 likely represents a sidebra nch IPMN. The pancreas is otherwise normal as imaged. Adrenal glands: Unremarkable. Kidneys: The contrast enhanced kidneys are normal in size and without hydronephrosis. The kidneys enh ance symmetrically. Scattered subcentimeter cortical hypodensities likely represent cysts but are too small for definitive characterization. Abdominal vasculature: There is moderate to advanced atherosclerotic calcification and mild ectasia o f the abdominal aorta. Bowel: Surgical clips are noted in the stomach. There is moderate to advanced diverticulosis of the l eft colon without CT evidence of acute diverticulitis. No bowel obstruction is seen. The appendix is not visualized. Peritoneum: There is no intraperitoneal free air or abdominal ascites. Lymphadenopathy: None. Pelvic viscera: The bladder is mildly distended but otherwise normal in appearance. The uterus is berna gically absent. No adnexal lesion is seen. Skeletal structures: The skeletal structures are osteopenic. No lytic or blastic lesions are seen. Th ere is mild to moderate lumbosacral spondylosis. There is chronic deformity and postoperative changes noted in the right proximal femur. A sacral stimulator device is present in the left gluteal soft ti ssues. IMPRESSION: 1. No acute infectious or inflammatory findings are identified in the abdomen or pelvis. 2. Cardiomegaly. 3. Colonic diverticulosis without CT evidence of acute diverticulitis. 4. Additional chronic and postsurgical findings as above. ACT 112: Negative or not required by law. Electronically signed by: Jcarlos Kinney M.D. 07/16/2023 4:34 PM
[2023-07-16 17:02] LABS: Appearance Urine Clear (Clear); Bilirubin Urine Negative (Negative); Blood Urine Negative (Negative); Color Urine Yellow; Glucose Urine UA Negative (Negative); Ketones Urine Trace (Negative); Leukocyte Esterase Urine Negative (Negative); Nitrite Urine Negative (Negative); Protein Urine Negative (Negative); Specific Gravity Urine 1.019 (1.000-1.030); Urobilinogen Urine Negative (Negative); pH Urine 8.5 (4.5-7.5)
--- NOTE | 2023-07-16 18:17 | Electrocardiogram Report ---
Test Reason : Blood Pressure : / mmHG Vent. Rate : 091 BPM Atrial Rate : 091 BPM P-R Int : 156 ms QRS Dur : 078 ms QT Int : 370 ms P-R-T Axes : 028 -32 042 degrees QTc Int : 455 ms Poor data quality, interpretation may be adversely affected Normal sinus rhythm Left axis deviation Cannot rule out Anterior infarct , age undetermined Abnormal ECG When compared with ECG of 12-JUN-2022 22:14, Nonspecific T wave abnormality now evident in Anterior leads Confirmed by Rome Pimentel ([id number]) on 07/16/2023 6:16:51 PM Referred By: REFERRED SELF Confirmed By:Rome Pimentel
[2023-07-16] MEDS ORDERED: rOPINIRole HCL 0.25 MG TABLET PO SCH (19:15)
--- NOTE | 2023-07-16 19:52 | History & Physical Report ---
Date of Service July 16, 2023 Assessment & Plan (1) Spinal stenosis, lumbar region with neurogenic claudication: (2) Nocturia: (3) Current chronic use of systemic steroids: (4) Acid reflux disease: (5) Degenerative cervical spinal stenosis: (6) Depression: (7) Generalized anxiety disorder: (8) Hyperlipidemia: (9) Hypertension: (10) Osteoporosis: (11) Rheumatoid arthritis: (12) Lumbar radiculopathy: (13) Nausea: (14) Weight loss, unintentional: (15) Weakness generalized: (16) History of stroke: (17) Hypokalemia: (18) Chronic diarrhea: (19) Hypercalcemia: Plan Pt is a 77 yo female with a past medical history of HTN, HLD, hx CVA with residual L eye blindness, BRE, depression, RA, GERD, urinary incontinence, and spinal stenosis who presents to the hospital on 07/16/23 for weakness and nausea. #Generalized weakness - Pt notes months of weakness, worse over past 2 weeks and now accompanied by nausea - notes unintentional weight loss of around 30 lbs over the past year from previous Dr todd - also notes chills, but no fever or night sweats - respiratory panel negative, covid negative - suspect given the weight loss and overall malaise, may be due to underlying malignancy vs chronic sleep deprivation secondary to nocturia vs hyperparathyroidism - will do PT/OT eval #Fall - s/p fall 1 week ago from standing position, pt hit her head but did not seek medical care - no worsening headaches or vision changes noted - pt denies hx of arrhythmias, EKG sinus rhythm in ER - last echo 2019: EF 56% with mild tricuspid and aortic regurg - head CT today: no hemorrhage noted - pt notes she is currently under outpatient investigation for parkinsons with [facility] in [place], [place] #Hypercalcemia - pt on prolia or osteoporosis, last dose in January, and takes calcium supplement maybe once a week - Calcium here was 11.4 - will give fluid hydration with NS 1L overnight and recheck ionized calcium in the am #Lumbar radiculopathy - pt notes she has chronic balance issues, use to have a simulator in her back that no longer works - continue home gabapentin #Nocturia - purewick in place #Chronic nonbloody diarrhea - continue loperamide - continue sulfasalazine #HTN - continue home amlodipine #Hx hypokalemia - pt notes last hospitalization 2 weeks ago her K+ was 2.0 - K+ was 3.6 in the ED, will replete as necessary, check daily BMP #Hx stroke with residual L eye blindness - continue aspirin #Rheumatoid arthritis - continue home prednisone - continue home leflunomide #Hyperlipidemia - continue home atorvastatin #Restless leg syndrome - continue home ropinirole #GERD - continue home pantoprazole #Generalized anxiety - continue home buspirone #Depression - continue home duloxetine VTE prophylaxis: lovenox 40 qam Dispo: Medsurg tele/Obs History of Present Illness Chief Complaint: Weakness, nausea Primary Care Provider: Zamzam Stone DO Pt is a 77 yo female with a past medical history of HTN, HLD, hx CVA with residual L eye blindness, BRE, depression, RA, GERD, urinary incontinence, and spinal stenosis who presents to the hospital on 07/16/23 for weakness and naus ea. Pt states that for about the last 2 weeks, she feels more overall weak and run down, as well as nauseated with no appetite. She states that she went to [facility] about 2 weeks ago for the same symptoms and that at the time her potassium was around 2.0, so it was repleted and she was given IVF overnight and discharged the next day. She states that she really did not feel better when she was discharged and that now she feels like she is just more weak and her nausea has not improved. Also noted muscle aches and cramps. She notes that at her last doctors appointment she weighed about 119lbs and last year in September she had weighed about 150 lbs and has not been trying to lose weight. She also notes having some chills over the last few months. She states she always feels pretty tired, but for the last few years she has needed to wake up 4-5 times each night to urinate, so she only sleeps a few hours at a time. She states that she also has chronic diarrhea and takes imodium for it. No blood in the stool or urine according to the pt. She states that last week when she was standing at the counter cutting fruit, she had felt weak and fell backwards, hitting her head. She did not seek medical care at that time. Denies LOC. She notes a headache, but states it is not different than the headaches she gets chronically. No blurred vision. No increasing unsteadiness since the fall. The fall was not proceeded by chest pain, palpitations, or SOB. She notes that she has had balance issues for years and has fallen several times because of it. She usually uses a walker. She states that her main complaint that made her come into the hospital is that she just feels weak and nauseated and not like her normal self for the past 2 weeks. Denies recent travel or sick contacts. Spoke to the daughter. She states that she was concerned because the pt has been more fatigued the last 2-3 weeks, sometimes falling asleep in the middle of a conversation. She also states that the patient has been eating well despite being nauseated. She states that the pt was noted to have an issue with her parathyroid due to labs recently and is suppose to follow up with a provider outpatient, but is unsure who. She states she will try to find the name and will be here at the hospital tomorrow to visit the pt. Allergies Allergy/AdvReac Type Severity Reaction Status Date / Time No Known Drug Allergies Allergy NKDA Verified 06/07/23 12:59 Home Medications Medication Instructions Recorded Confirmed Type sulfasalazine 500 mg tablet 1 gm PO QAM 07/21/20 07/16/23 History (Azulfidine) aspirin 81 mg tablet,delayed 81 mg PO QAM 09/18/22 07/16/23 History release baclofen 10 mg tablet 5 - 10 mg PO UD 09/18/22 07/16/23 History denosumab 60 mg/mL subcutaneous 60 mg subcut UD 09/18/22 07/16/23 History syringe donepezil 10 mg tablet 10 mg PO QAM 09/18/22 07/16/23 History folic acid 1 mg tablet 3 mg PO QAM 09/18/22 07/16/23 History leflunomide 10 mg tablet 10 mg PO QAM 09/18/22 07/16/23 History prednisone 5 mg tablet 5 mg PO QAM 09/18/22 07/16/23 History ropinirole 0.25 mg tablet 0.5 - 0.75 mg PO UD 09/18/22 07/16/23 History mometasone 0.1 % topical solution 1 applic topical DAILY PRN skin 12/29/22 07/16/23 Rx irritation #60 mL duloxetine 30 mg capsule,delayed 30 mg PO QAM #90 caps 03/04/23 07/16/23 Rx release buspirone 10 mg tablet 10 mg PO TID #270 tabs 04/04/23 07/16/23 Rx amlodipine 5 mg tablet 5 mg PO QAM #90 tabs 05/01/23 07/16/23 Rx pantoprazole 40 mg tablet,delayed 40 mg PO QAM #90 tabs 06/03/23 07/16/23 Rx release cyanocobalamin (vitamin B-12) 1,000 mcg PO QAM #90 tabs 06/07/23 07/16/23 Rx 1,000 mcg tablet gabapentin 300 mg capsule 300 mg PO BID #180 caps 06/20/23 07/16/23 Rx atorvastatin 20 mg tablet 20 mg PO QAM #90 tabs 06/26/23 07/16/23 Rx loperamide 2 mg tablet 2 mg PO QID PRN diarrhea 07/08/23 07/16/23 History (Anti-Diarrheal (loperamide)) potassium chloride 10 mEq 30 meq PO DAILY 07/08/23 07/16/23 History tablet,extended release tramadol 50 mg tablet 50 mg PO Q8H PRN pain #90 tabs 07/08/23 07/16/23 Rx Past Med/Surg History Medical History Acid reflux disease Current chronic use of systemic steroids Degenerative cervical spinal stenosis Depression Diminished pulses in lower extremity Gait abnormality Generalized anxiety disorder Hyperlipidemia Hypertension Insomnia Lumbar radiculopathy Nocturia Osteoporosis Rheumatoid arthritis Spinal stenosis, lumbar region with neurogenic claudication Stroke 6+ years ago > residual left eye blindness TMJ arthritis Urinary incontinence Surgical History H/O colonoscopy H/O esophagogastroduodenoscopy History of ankle surgery bilateral History of appendectomy History of dilatation and curettage History of hysteroscopy History of open reduction and internal fixation (ORIF) procedure lt wrist and rt. elbow History of robot-assisted laparoscopic hysterectomy BSO, nov 2022, endometritis, no cancer History of tubal ligation Hx of cholecystectomy Hx of tonsillectomy S/P implantation of urinary electronic stimulator device Bladder stimulator No longer using/works ("needs to be taken out")- OR aware Status post hip surgery March 2019-right Family History Father Diabetes Mother Stroke syndrome Uterine cancer Brother Malignant neoplasm of body of pancreas Malignant Pancreatic Neoplasm Colorectal cancer Sister Malignant neoplasm of body of pancreas Malignant Pancreatic Neoplasm Myocardial infarction Denies family history of Ovarian cancer Prostate cancer Breast cancer Social History Smoking Status: Never smoker Tobacco Type: Cigarettes Age Started Using Tobacco: 14; Age Quit Using Tobacco: 18; packs per day: 0.5; Second Hand Exposure: No; Do You Dip or Chew Tobacco: No; Hx Alcohol Use: No Hx Substance Use: No Preferred Language: Indonesian Communication Ability: Effective Visual Impairment: Partially Limited Hearing Ability: Hard of Hearing Medicine Teacher Required: No Beliefs That Will Affect Care: None marital status: Current Living Situation: Spouse current occupational status: retired 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 How many Children do You have: 3 Feels Safe at Home: Yes Childhood Exposure to Second-Hand Smoke: Yes Diet: regular caffeine: Yes (tea) during the past year weight has: remained stable Dental Care, Regularly: Yes Physical Activity Frequency: Does not Exercise Seatbelt Use: never Sunscreen Use: No Do you think of yourself as: straight/heterosexual Gender Identity: Female Assistive Devices: Denture - Upper, Glasses, Raised Toilet Seat and Walker Review of Systems Review of Systems: Constitutional: denies fever, +chills HEENT: denies sore throat or cough Cardio: denies chest pain, palpitations Resp: denies shortness of breath, GI: denies abdominal pain, +nausea, no vomiting, +diarrhea Physical Exam Physical Exam: General: Alert and oriented, no acute distress, Cardio: Regular rate and rhythm, Resp: Lungs clear to auscultation b/l, GI: Soft and nontender, nondistended, bowel sounds active MSK: 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 Results & Data Results & Data Vital Signs (Past 12 Hours) Vital Signs Temp Pulse Pulse Resp BP BP Pulse Ox 07/16/23 18:00 88 17 185/102 H 95 08/22/23 16:57 87 18 196/100 H 99 07/16/23 14:59 79 18 97 07/16/23 14:59 80 18 199/99 H 97 07/16/23 14:03 96 H 07/16/23 13:46 36.9 C 103 H 16 209/128 H 95 O2 Del Method 07/16/23 18:00 Room Air 07/16/23 16:57 Room Air 07/16/23 14:59 Room Air 07/16/23 14:59 Room Air 07/16/23 14:03 07/16/23 13:46 Room Air Supervising Physician Co-Signing Physician Notes I personally saw and examined the patient. I verified all pike points and agree with resident physician Dr Marta Gross, with the following exceptions and/or additions: 77 year old female presents to the ER with ongoing weight loss, generalized weakness, cramps and nor with nausea. No dysphagia/dysphasia, vision speech or hearing difficulty. Chronic neck and back pain but no sudden worsening on neck movements. No radicular symptoms. O/E A&Ox3, HS RRR, no murmurs, Chest CTAB, Abdo SNT, hyporeflexia knees b/l, no pronator drift, strength UE/LE 5/5 b/l, CN 2> 12 intact over the left vision blindness following prior stroke A/P Generalized weakness / hypercalcemia / primary hyperparathyroidism - not clearly related to hypercalcemia although this is the main problem found and can cause muscle weakness, cramps and her nausea. Previous labs consistent with primary hyperparathyroidism although does not appear to have been treated for this she reports she is to see a specialist at some time but cannot tell me when or where. Hypercalcemia is not very elevated (but should be low if anything in setting of denosumab use) and therefore not clearly causing her symptoms but would advise treating until normal to rule this out. Will initially hydrate overnight with normal saline to see if corrects - if it does not suggest bisphosphonate and calcitonin despite denosumab use. For longer term correction will start Sensibar 30mg PO BID and eventual treatment potentially would be surgery. Will also discontinue atorvastatin although total CK normal. Weight loss - I am less clear what is causing this as she reports her diet is normal. No underlying malignancy seen on CT A/P. Will get myeloma labs in morning due to hypercalcemia however previously elevated PTH suggests this is due to primary hyperparathyroidism. PT/OT Resident Activity Tracking Resident Involvement: Resident Care Provided Care Provided: Adult Hospital Medicine (8) Hyperlipidemia Hyperlipidemia type: mixed hyperlipidemia Qualified Code(s): E78.2 - Mixed hyperlipidemia (9) Hypertension Hypertension type: essential hypertension Qualified Code(s): I10 - Essential (primary) hypertension (11) Rheumatoid arthritis Rheumatoid arthritis location: unspecified site Rheumatoid factor presence: unspecified presence Qualified Code(s): M06.9 - Rheumatoid arthritis, unspecified
[2023-07-16] MEDS: GABAPENTIN 300 MG CAP PO SCH (20:26)
[2023-07-16] MEDS: busPIRone 5 MG TAB PO SCH (20:27)
[2023-07-16] MEDS: rOPINIRole HCL 0.25 MG TABLET PO SCH (20:28)
[2023-07-16] MEDS: traMADol HCL 50 MG TABLET PO PRN (20:28)
[2023-07-16 20:43] LABS: Phosphorus 3.5 mg/dl (2.5-4.9)
[2023-07-16] MEDS ORDERED: ACETAMINOPHEN 325 MG TAB PO PRN (21:57)
[2023-07-16] MEDS ORDERED: SODIUM CHLORIDE 0.9% 1000ML 1,000 ML IV SCH (22:00)
[2023-07-16] MEDS ORDERED: MELATONIN 3 MG TAB PO PRN (22:37)
[2023-07-16] MEDS ORDERED: DICLOFENAC SOD 1% GEL 100 GM TUBE EXT PRN (22:37)
[2023-07-16] MEDS: CINACALCET HCL 30 MG TAB PO SCH (23:07)
[2023-07-17 05:58] LABS: BUN Creatinine Ratio 13.2 (10-20); Calcium 10.8 mg/dl (8.6-10.3); Creatinine Clr Calc Pharmacy 39.6 ml/min; Est GFR (African American) 69.5 ml/min; Potassium 2.7 mmol/L (3.5-5.1)
--- NOTE | 2023-07-17 07:17 | Billing Data ---
Date of Service July 16, 2023 Coding Level of Care Code 69901 INT INP/OBS CARE
--- NOTE | 2023-07-17 07:20 | Hospitalist Progress Note ---
Date of Service July 17, 2023 Assessment & Plan (1) Spinal stenosis, lumbar region with neurogenic claudication: (2) Nocturia: (3) Current chronic use of systemic steroids: (4) Acid reflux disease: (5) Degenerative cervical spinal stenosis: (6) Depression: (7) Generalized anxiety disorder: (8) Hyperlipidemia: (9) Hypertension: (10) Osteoporosis: (11) Rheumatoid arthritis: (12) Lumbar radiculopathy: (13) Nausea: (14) Weight loss, unintentional: (15) Weakness generalized: (16) History of stroke: (17) Hypokalemia: (18) Chronic diarrhea: (19) Hypercalcemia: Plan Pt is a 77 yo female with a past medical history of HTN, HLD, hx CVA with residual L eye blindness, BRE, depression, RA, GERD, urinary incontinence, and spinal stenosis who presents to the hospital on 07/16/23 for weakness and nausea. Hypercalcemia/ Primary Hyperparathyroidism - pt on Prolio (denosumab) for osteoporosis, last dose in January, and takes calcium supplement maybe once a week -Never being treated for hyperparathyroidism - Calcium at admission: 11.4. Last Ca:10.6 -Iodized Calcium 1.38, PTH:138.8 - s/p hydration with NS 1L overnight - Sensibar 30mg PO BID started at admission -continue NSS 45 ml/hrs Generalized weakness -generalized weakness for a couples of months that has been worse since 2 weeks ago, associated now with nausea - also notes chills, but no fever or night sweats - PT/OT Eval: Short rehab if pt agree. Weight loss -unintentional weight loss of around 30 lbs since September. Noted on last PCP visit. -No underlying malignancy seen on CT abdomen/ pelvis. -Total Protein: 7.0, Albumin: 4.2 -Pending Myeloma workup Fall - s/p fall 1 week ago from standing position, pt hit her head but did not seek medical care - pt notes she is currently under outpatient investigation for Parkinson - no worsening headaches or vision changes noted - pt denies hx of arrhythmias, EKG sinus rhythm in ER - last echo 2019: EF 56% with mild tricuspid and aortic regurgitation. Mild aortic stenosis -CT head: no acute insult -Echocardiogram ordered today -check orthostatics. hypokalemia - pt notes last ER visit 2 weeks ago her K+ was 2.0 - K+ was 3.6 in the ED - K today 2.7 am, after replacement 4.1 -Potassium Chloride 20 meq PO daily - Follow Labs am, Polypharmacy - possibly contributing to some of constitutional symptoms - follow for any med titration Chronic Conditions: #Lumbar radiculopathy - continue home gabapentin #Nocturia - purewick in place #Chronic nonbloody diarrhea - continue loperamide - continue sulfasalazine #HTN - continue home amlodipine #Hx stroke with residual L eye blindness - continue aspirin #Rheumatoid arthritis - continue home prednisone, leflunomide #Restless leg syndrome - continue home ropinirole Code:Conditional Code Dispo:MedSurg with Telemetry FEN/GI:Regular DVT Prophylaxis:Lovenox 40 qAM PT/OT:Yes Consults:no Case Management:Yes Admission and Anticipated Discharge Date Admission Date: July 16, 2023 Supervising Physician Co-Signing Physician Notes Resident Physician Supervision Note: I independently interviewed and examined the patient and verified the pike history and physical, reviewed labs and image studies and agree with resident findings and care plan. Subjective Pt is a 77 yo female with a past medical history of HTN, HLD, hx CVA with r esidual L eye blindness, BRE, depression, RA, GERD, urinary incontinence, and spinal stenosis who presents to the hospital on 07/16/23 for weakness and nausea. Patient evaluated today found in AAOx2. Refers Left sided-rib cage pain (5/10). Denied SOB, vomiting, diarrhea, chest pain, abdominal pain or any other symtoms. Patient states that for about the last 2 weeks, she feels more overall weak and run down, as well as nauseated with no appetite. She states that she went to [facility] about 2 weeks ago for the same symptoms and that at the time her potassium was around 2.0, so it was repleted and she was given IVF overnight and discharged the next day. She states that she really did not feel better when she was discharged and that now she feels like she is just more weak and her na usea has not improved. Also noted muscle aches and cramps. She notes unintentional weight loss approximally 30 lbs. She also notes having some chills over the last few months. She states that last week when she was standing at the counter cutting fruit, she had felt weak and fell backwards, hitting her head. She did not seek medical care at that time. Denies LOC. She notes a headache, but states it is not different than the headaches she gets chronically. No blurred vision. No increasing unsteadiness since the fall. The fall was not proceeded by chest pain, palpitations, or SOB. She notes that she has had balance issues for years and has fallen several times because of it. She usually uses a walker. Daughter refers the pt was noted to have an issue with her parathyroid due to labs recently and is suppose to follow up with a provider outpatient, but is unsure who. She states she will try to find the name and will be here at the hospital tomorrow to visit the pt. Review of Systems Review of Systems: As per HPI Physical Exam Constitutional: WD/WN, vitals as above Respiratory: normal respiratory effort, lungs clear to auscultation Cardiovascular: RRR, no murmur, no edema Gastrointestinal (Abdomen): normal bowel sounds, soft, nontender, no hepatosplenomegaly Musculoskeletal: Mild Left sided - lower rib cage tenderness upon palpation Neurologic: hyporeflexia knees b/l, no pronator drift, strength UE/LE 5/5 b/l, CN 2> 12 intact over the left vision blindness following prior stroke A/P Results & Data Results & Data Vital Signs (Past 12 Hours) Vital Signs Temp Pulse Pulse Resp BP Pulse Ox Pulse Ox 07/17/23 04:02 95 H 18 139/80 94 07/17/23 02:35 36.8 C 07/17/23 02:35 78 16 162/83 H 96 07/16/23 21:57 96 07/16/23 23:00 84 19 161/89 H 96 07/16/23 22:42 88 07/16/23 21:00 85 19 177/98 H 97 O2 Del Method O2 Del Method 07/17/23 04:02 Room Air 07/17/23 02:35 07/17/23 02:35 Room Air 07/16/23 21:57 Room Air 07/16/23 23:00 07/16/23 22:42 07/16/23 21:00 Resident Activity Tracking Resident Involvement: Resident Care Provided Care Provided: Adult Hospital Medicine (8) Hyperlipidemia Hyperlipidemia type: mixed hyperlipidemia Qualified Code(s): E78.2 - Mixed hyperlipidemia (9) Hypertension Hypertension type: essential hypertension Qualified Code(s): I10 - Essential (primary) hypertension (11) Rheumatoid arthritis Rheumatoid arthritis location: unspecified site Rheumatoid factor presence: unspecified presence Qualified Code(s): M06.9 - Rheumatoid arthritis, unsp ecified
[2023-07-17] MEDS: CINACALCET HCL 30 MG TAB PO SCH ×2 (08:42→21:17)
[2023-07-17] MEDS: ASPIRIN 81 MG ECTAB PO SCH (08:42)
[2023-07-17] MEDS: PANTOprazole 40 MG TAB PO SCH (08:42)
[2023-07-17] MEDS: LEFLUNOMIDE 10 MG TAB PO SCH (08:42)
[2023-07-17] MEDS: DULoxetine HCL 30 MG CAP PO SCH (08:42)
[2023-07-17] MEDS: predniSONE 5 MG TAB PO SCH (08:42)
[2023-07-17] MEDS: POTASSIUM CHLORIDE 10 MEQ TABCR PO SCH ×2 (08:42→12:21)
[2023-07-17] MEDS: amLODIPine BESYLATE 5 MG TAB PO SCH (08:43)
[2023-07-17] MEDS: ENOXAPARIN INJ 40 MG/0.4 ML SYR SQ SCH (08:44)
[2023-07-17] MEDS: sulfaSALAzine 500 MG TABLET PO SCH (08:44)
[2023-07-17] MEDS: DONEPEZIL HCL 10 MG TAB PO SCH (08:45)
[2023-07-17] MEDS: rOPINIRole HCL 0.25 MG TABLET PO SCH ×2 (08:45→21:16)
[2023-07-17] MEDS: GABAPENTIN 300 MG CAP PO SCH ×2 (08:46→21:16)
[2023-07-17] MEDS: busPIRone 5 MG TAB PO SCH ×3 (08:46→21:16)
[2023-07-17] MEDS ORDERED: ATORVASTATIN 20 MG TAB PO SCH (09:00)
[2023-07-17] MEDS: traMADol HCL 50 MG TABLET PO PRN ×2 (09:00→18:18)
[2023-07-17] MEDS ORDERED: POTASSIUM CHLORIDE CRTAB 20 MEQ TABCR PO STA (09:38)
[2023-07-17 16:41] LABS: Calcium 10.6 mg/dl (8.6-10.3); Creatinine Clr Calc Pharmacy 26.5 ml/min; Est GFR (African American) 42.8 ml/min; Est GFR (Non-African American) 36.9 ml/min; Potassium 4.1 mmol/L (3.5-5.1)
[2023-07-17] MEDS: SODIUM CHLORIDE 0.9% 500 ML IV SCH (18:18)
[2023-07-17] MEDS ORDERED: MELATONIN 3 MG TAB PO STA (21:50)
[2023-07-18] MEDS: traMADol HCL 50 MG TABLET PO PRN ×2 (02:19→11:04)
[2023-07-18 07:25] LABS: Hematocrit (blood only) 31.2 % (37.0-47.0); Hemoglobin 10.4 g/dl (12.0-16.0); Mean Corpuscular Hemoglobin 31.6 pg (25.0-34.0); Mean Corpuscular Hgb Conc 33.3 g/dL (32.0-36.0); Mean Corpuscular Volume 94.8 fL (80.0-100.0); Platelet Count 208 K/uL (130-400); RDW Coefficient of Variation 15.6 % (11.5-14.5); RDW Standard Deviation 52.9 fL (36.4-46.3); Red Blood Count 3.29 M/uL (4.20-5.40); White Blood Count 6.06 K/ul (4.8-10.8)
--- NOTE | 2023-07-18 07:37 | Hospitalist Progress Note ---
Date of Service July 18, 2023 Assessment & Plan (1) Spinal stenosis, lumbar region with neurogenic claudication: (2) Nocturia: (3) Current chronic use of systemic steroids: (4) Acid reflux disease: (5) Degenerative cervical spinal stenosis: (6) Depression: (7) Generalized anxiety disorder: (8) Hyperlipidemia: (9) Hypertension: (10) Osteoporosis: (11) Rheumatoid arthritis: (12) Lumbar radiculopathy: (13) Nausea: (14) Weight loss, unintentional: (15) Weakness generalized: (16) History of stroke: (17) Hypokalemia: (18) Chronic diarrhea: (19) Hypercalcemia: Plan Pt is a 77 yo female with a past medical history of HTN, HLD, hx CVA with residual L eye blindness, BRE, depression, RA, GERD, urinary incontinence, and spinal stenosis who presents to the hospital on 07/16/23 for weakness and nausea. Hypercalcemia/ Primary Hyperparathyroidism - pt on Prolio (denosumab) for osteoporosis, last dose in January, and takes calcium supplement maybe once a week -Never being treated for hyperparathyroidism - Calcium at admission: 11.4. Last Ca:10.6 -Iodized Calcium 1.38, PTH:138.8 - s/p hydration with NS 1L overnight - Sensibar 30mg PO BID started at admission -continue NSS 45 ml/hrs Generalized weakness -generalized weakness for a couples of months that has been worse since 2 weeks ago, associated now with nausea - also notes chills, but no fever or night sweats - PT/OT Eval: Short rehab if pt agree. Weight loss -unintentional weight loss of around 30 lbs since September. Noted on last PCP visit. -No underlying malignancy seen on CT abdomen/ pelvis. -Total Protein: 7.0, Albumin: 4.2 -Pending Myeloma workup Fall - s/p fall 1 week ago from standing position, pt hit her head but did not seek medical care - pt notes she is currently under outpatient investigation for Parkinson - no worsening headaches or vision changes noted - pt denies hx of arrhythmias, EKG sinus rhythm in ER - last echo 2019: EF 56% with mild tricuspid and aortic regurgitation. Mild aortic stenosis -CT head: no acute insult -Echocardiogram ordered today -check orthostatics. hypokalemia - pt notes last ER visit 2 weeks ago her K+ was 2.0 - K+ was 3.6 in the ED - K today 2.7 am, after replacement 4.1 -Potassium Chloride 20 meq PO daily - Follow Labs am, Polypharmacy - possibly contributing to some of constitutional symptoms - follow for any med titration Chronic Conditions: #Lumbar radiculopathy - continue home gabapentin #Nocturia - purewick in place #Chronic nonbloody diarrhea - continue loperamide - continue sulfasalazine #HTN - continue home amlodipine #Hx stroke with residual L eye blindness - continue aspirin #Rheumatoid arthritis - continue home prednisone, leflunomide #Restless leg syndrome - continue home ropinirole Code:Conditional Code Dispo:MedSurg with Telemetry FEN/GI:Regular DVT Prophylaxis:Lovenox 40 qAM PT/OT:Yes Consults:no Case Management:Yes Admission and Anticipated Discharge Date Admission Date: July 16, 2023 Subjective Pt is a 77 yo female with a past medical history of HTN, HLD, hx CVA with residual L eye blindness, BRE, depression, RA, GERD, urinary incontinence, and spinal stenosis who presents to the hospital on 07/16/23 for weakness and nausea. Patient evaluated today found in AAOx2. Refers Left sided-rib cage pain (5/10). Denied SOB, vomiting, diarrhea, chest pain, abdominal pain or any other symtoms. Patient states that for about the last 2 weeks, she feels more overall weak and run down, as well as nauseated with no appetite. She states that she went to [facility] about 2 weeks ago for the same symptoms and that at the time her potassium was around 2.0, so it was repleted and she was given IVF overnight and discharged the next day. She states that she really did not feel better when she was discharged and that now she feels like she is just more weak and her nausea has not improved. Also noted muscle aches and cramps. She notes unintentional weight loss approximally 30 lbs. She also notes having some chills over the last few months. She states that last week when she was standing at the counter cutting fruit, she had felt weak and fell backwards, hitting her head. She did not seek medical care at that time. Denies LOC. She notes a headache, but states it is not different than the headaches she gets chronically. No blurred vision. No increasing unsteadiness since the fall. The fall was not proceeded by chest pain, palpitations, or SOB. She notes that she has had balance issues for years and has fallen several times because of it. She usually uses a walker. Daughter refers the pt was noted to have an issue with her parathyroid due to labs recently and is suppose to follow up with a provider outpatient, but is unsure who. She states she will try to find the name and will be here at the hospital tomorrow to visit the pt. Review of Systems Review of Systems: As per HPI Physical Exam Constitutional: WD/WN, vitals as above Respiratory: normal respiratory effort, lungs clear to auscultation Cardiovascular: RRR, no murmur, no edema Gastrointestinal (Abdomen): normal bowel sounds, soft, nontender, no hepatosp lenomegaly Neurologic: PERRL, EOMI, accommodation nl, no face palsy, no dysarthria Results & Data Results & Data Vital Signs (Past 12 Hours) Vital Signs Temp Pulse Pulse Resp BP Pulse Ox O2 Del Method 07/18/23 03:09 36.6 C 89 18 160/83 H 95 Room Air 07/17/23 22:04 94 H 07/17/23 23:29 36.7 C 93 H 18 149/81 H 94 Room Air (8) Hyperlipidemia Hyperlipidemia type: mixed hyperlipidemia Qualified Code(s): E78.2 - Mixed hyperlipidemia (9) Hypertension Hypertension type: essential hypertension Qualified Code(s): I10 - Essential (primary) hypertension (11) Rheumatoid arthritis Rheumatoid arthritis location: unspecified site Rheumatoid factor presence: unspecified presence Qualified Code(s): M06.9 - Rheumatoid arthritis, unspecified
[2023-07-18 07:46] LABS: Albumin Globulin Ratio 1.6 (0.9-2); Albumin Level 3.6 gm/dl (3.4-5.0); Bilirubin,Total 0.5 mg/dl (0.2-1.0); Calcium 10.4 mg/dl (8.6-10.3); Creatinine Clr Calc Pharmacy 34.4 ml/min; Est GFR (African American) 58.5 ml/min; Est GFR (Non-African American) 50.5 ml/min; Globulin 2.2 gm/dl (2.5-4.0); Magnesium 1.7 mg/dl (1.7-2.4); Phosphorus 3.2 mg/dl (2.5-4.9); Potassium 3.2 mmol/L (3.5-5.1); Total Protein 5.8 gm/dl (6.0-8.3)
[2023-07-18] MEDS ORDERED: DOCUSATE SODIUM 100 MG CAP PO ONE (08:34)
[2023-07-18] MEDS: sulfaSALAzine 500 MG TABLET PO SCH (08:36)
[2023-07-18] MEDS: LEFLUNOMIDE 10 MG TAB PO SCH (08:36)
[2023-07-18] MEDS: rOPINIRole HCL 0.25 MG TABLET PO SCH (08:36)
[2023-07-18] MEDS: CINACALCET HCL 30 MG TAB PO SCH (08:36)
[2023-07-18] MEDS: GABAPENTIN 300 MG CAP PO SCH (08:36)
[2023-07-18] MEDS: predniSONE 5 MG TAB PO SCH (08:36)
[2023-07-18] MEDS: DULoxetine HCL 30 MG CAP PO SCH (08:36)
[2023-07-18] MEDS: ENOXAPARIN INJ 40 MG/0.4 ML SYR SQ SCH (08:37)
[2023-07-18] MEDS: amLODIPine BESYLATE 5 MG TAB PO SCH (08:37)
[2023-07-18] MEDS: busPIRone 5 MG TAB PO SCH (08:37)
[2023-07-18] MEDS: PANTOprazole 40 MG TAB PO SCH (08:37)
[2023-07-18] MEDS: ASPIRIN 81 MG ECTAB PO SCH (08:37)
[2023-07-18] MEDS: DONEPEZIL HCL 10 MG TAB PO SCH (08:37)
[2023-07-18] MEDS ORDERED: POLYETHYLENE (MIRALAX) 17 GM PACK PO SCH (09:00)
--- NOTE | 2023-07-18 10:15 | Discharge Summary ---
Date of Service July 18, 2023 Admission HPI Per Admitting Provider Pt is a 77 yo female with a past medical history of HTN, HLD, hx CVA with residual L eye blindness, BRE, depression, RA, GERD, urinary incontinence, and spinal stenosis who presents to the hospital on 07/16/23 for weakness and nausea. Pt states that for about the last 2 weeks, she feels more overall weak and run down, as well as nauseated with no appetite. She states that she went to [facility] about 2 weeks ago for the same symptoms and that at the time her potassium was around 2.0, so it was repleted and she was given IVF overnight and discharged the next day. She states that she really did not feel better when she was discharged and that now she feels like she is just more weak and her nausea has not improved. Also noted muscle aches and cramps. She notes that at her last doctors appointment she weighed about 119lbs and last year in September she had weighed about 150 lbs and has not been trying to lose weight. She also notes having some chills over the last few months. She states she always feels pretty tired, but for the last few years she has needed to wake up 4-5 times each night to urinate, so she only sleeps a few hours at a time. She states that she also has chronic diarrhea and takes imodium for it. No blood in the stool or urine according to the pt. She states that last week when she was standing at the counter cutting fruit, she had felt weak and fell backwards, hitting her head. She did not seek medical care at that time. Denies LOC. She notes a headache, but states it is not different than the headaches she gets chronically. No blurred vision. No increasing unsteadiness since the fall. The fall was not proceeded by chest pain, palpitations, or SOB. She notes that she has had balance issues for years and has fallen several times because of it. She usually uses a walker. She states that her main complaint that made her come into the hospital is that she just feels weak and nauseated and not like her normal self for the past 2 weeks. Denies recent travel or sick contacts. Spoke to the daughter. She states that she was concerned because the pt has been more fatigued the last 2-3 weeks, sometimes falling asleep in the middle of a conversation. She also states that the patient has been eating well despite being nauseated. She states that the pt was noted to have an issue with her parathyroid due to labs recently and is suppose to follow up with a provider outpatient, but is unsure who. She states she will try to find the name and will be here at the hospital tomorrow to visit the pt. Admission Exam Per Admitting Provider General:Alert and oriented, no acute distress, Cardio:Regular rate and rhythm, Resp: Lungs clear to auscultation b/l, GI:Soft and nontender, nondistended, bowel sounds active MSK:planer setter strength 5/5 b/l, dorsiflexion and plantar flexion 5/5 b/l, Skin:Warm, pink, dry, Psych:Mood-affect congruence. Principal Diagnosis Primary Hyperparathyroidism Hypercalcemia Discharge Exam Eyes PERRL, conjunctivae normal, anicteric sclerae Respiratory normal respiratory effort, lungs clear to auscultation Cardiovascular RRR, no murmur, no edema Gastrointestinal (Abdomen) normal bowel sounds, soft, nontender, no hepatosplenomegaly Musculoskeletal no cyanosis or clubbing, extremities motor strength 5/5 Neurologic PERRL, EOMI, accommodation nl, no face palsy, no dysarthria Discharge Data Allergies Allergy/AdvReac Type Severity Reaction Status Date / Time No Known Drug Allergies Allergy NKDA Verified 06/07/23 12:59 Consultations 07/16/23 19:13 ED Decision to Admit Stat Ordered Studies Chest X-Ray 07/16/23 13:51 XR chest 1V portable HISTORY: 77 years-old Female Sepsis acute sepsis COMPARISON: 06/12/2022 TECHNIQUE: AP view of the chest FINDINGS: Cardiac mediastinal and hilar silhouettes are within normal limits. No pneumothorax, pleural effusion, airspace consolidation or pulmonary edema. Bones appear grossly intact. Endoscopy clip projects over the central upper abdomen. Partially imaged cervical spinal fusion hardware. IMPRESSION: No acute process. ACT 112: Negative or not required by law. The above report was generated using voice recognition software. It may contain grammatical, syntax or spelling errors. Electronically signed by: Chapin Cleary M.D. 07/16/2023 2:24 PM Abdomen/Pelvis CT 07/16/23 14:09 CT SCAN OF THE ABDOMEN AND PELVIS WITH IV CONTRAST CLINICAL HISTORY: Generalized abdominal pain. Weakness. COMPARISON STUDY: Abdominal CT dated 06/13/2022. TECHNIQUE: Following the IV administration of 91 cc of Optiray 320, CT scan of the abdomen and pelvis is performed from the lung bases to the proximal femora. Images are reviewed in the axial, sagittal, and coronal planes. IV contrast was administered without complication. A dose lowering technique was utilized adhering to the principles of ALARA. The examination is compromised by motion artifact. CT DOSE: 1288.27 mGy.cm FINDINGS: Lung bases: The heart is enlarged and without pericardial effusion. The coronary arteries are densely calcified. There is a tiny hiatal hernia. The lung bases are clear noting bibasilar scarring/atelectasis. Liver: The contrast-enhanced liver is normal in size, contour, and attenuation. There is minimal central intrahepatic biliary ductal dilatation. The hepatic veins and portal veins are patent. Gallbladder: Surgically absent noting clips in the gallbladder fossa. Spleen: Normal in size and attenuation. Scattered subcentimeter splenic hypodensities are pathologically indeterminant and statistically significant. Pancreas: A 9 mm simple cystic focus in the pancreatic head on image #114 likely represents a sidebranch IPMN. The pancreas is otherwise normal as imaged. Adrenal glands: Unremarkable. Kidneys: The contrast enhanced kidneys are normal in size and without hydronephrosis. The kidneys enhance symmetrically. Scattered subcentimeter cortical hypodensities likely represent cysts but are too small for definitive characterization. Abdominal vasculature: There is moderate to advanced atherosclerotic calcification and mild ectasia of the abdominal aorta. Bowel: Surgical clips are noted in the stomach. There is moderate to advanced diverticulosis of the left colon without CT evidence of acute diverticulitis. No bowel obstruction is seen. The appendix is not visualized. Peritoneum: There is no intraperitoneal free air or abdominal ascites. Lymphadenopathy: None. Pelvic viscera: The bladder is mildly distended but otherwise normal in appearance. The uterus is surgically absent. No adnexal lesion is seen. Skeletal structures: The skeletal structures are osteopenic. No lytic or blastic lesions are seen. There is mild to moderate lumbosacral spondylosis. There is chronic deformity and postoperative changes noted in the right proximal femur. A sacral stimulator device is present in the left gluteal soft tissues. IMPRESSION: 1. No acute infectious or inflammatory findings are identified in the abdomen or pelvis. 2. Cardiomegaly. 3. Colonic diverticulosis without CT evidence of acute diverticulitis. 4. Additional chronic and postsurgical findings as above. ACT 112: Negative or not required by law. Electronically signed by: Jcarlos Kinney M.D. 07/16/2023 4:[address] 07/16/23 14:09 CT SCAN OF THE BRAIN WITHOUT IV CONTRAST CLINICAL HISTORY: Generalized weakness. COMPARISON STUDY: CT of the brain dated 06/13/2022. TECHNIQUE: Unenhanced axial CT scan of the brain is performed from the vertex to the skull base. A dose lowering technique was utilized adhering to the principles of ALARA. FINDINGS: Brain parenchyma: There is age-related involutional change noting moderate to advanced subcortical and periventricular microangiopathic disease. There is no hemorrhage, mass effect, or evidence of acute territorial ischemia by CT criteria. Chavez-white matter differentiation is preserved. No extra-axial fluid collection is seen. Ventricles, sulci, cisterns: Prominent secondary to involutional change. Intracranial vasculature: There is atherosclerotic calcification of the cavernous carotid and vertebral arteries. Calvarium: Unremarkable. Sinuses and mastoids: The visualized paranasal sinuses are clear. The mastoid air cells are well pneumatized. Orbits: The bony orbits are grossly intact. There is a right ocular lens implant. IMPRESSION: There is no hemorrhage, mass effect, or evidence of acute territorial ischemia by CT criteria. ACT 112: Negative or not required by law. Electronically signed by: Jcarlos Kinney M.D. 07/16/2023 4:26 PM Microbiology 07/16/23 14:08 Blood Aerobic Blood Culture - Preliminary No growth in Aerobic bottle after 48 hours. 07/16/23 14:08 Blood Anaerobic Blood Culture - Preliminary No growth in Anaerobic bottle after 48 hours. 07/16/23 14:08 Blood Aerobic Blood Culture - Preliminary No growth in Aerobic bottle after 48 hours. 07/16/23 14:08 Blood Anaerobic Blood Culture - Preliminary No growth in Anaerobic bottle after 48 hours. Labs 07/16/23 07/16/23 07/16/23 14:08 14:08 14:08 WBC 7.49 RBC 3.56 L Hgb 11.2 L Hct 34.3 L MCV 96.3 MCH 31.5 MCHC 32.7 RDW Std Deviation 55.4 H RDW Coeff of [place] 15.9 H Plt Count 254 MPV 9.1 L Immature Gran % (Auto) 0.7 Neut % (Auto) 51.5 Lymph % (Auto) 33.1 [place] % (Auto) 12.3 Eos % (Auto) 1.3 Baso % (Auto) 1.1 Neut # (Auto) 3.86 Lymph # (Auto) 2.48 [place] # (Auto) 0.92 H Eos # (Auto) 0.10 Baso # (Auto) 0.08 Immature Gran # (Auto) 0.05 Sodium 141 Potassium 3.6 Chloride 103 Carbon Dioxide 26 Anion Gap 12 H BUN 14 Creatinine 0.89 Est Cr Clr Drug Dosing Not Reportable Est GFR ( Amer) 71.4 Est GFR (Non-Af Amer) 61.6 BUN/Creatinine Ratio 15.7 Glucose 91 Lactate Calcium 11.4 H Ionized Calcium Phosphorus Magnesium 1.9 Total Bilirubin 0.7 Direct Bilirubin 0.1 AST 20 ALT 14 Alkaline Phosphatase 60 Total Creatine Kinase Troponin I High Sens 14.1 H Total Protein 7.0 Albumin 4.2 Globulin Albumin/Globulin Ratio 25-OH Vitamin D Total Procalcitonin < 0.05 PTH Intact Urine Color Urine Appearance Urine pH Ur Specific [place] Urine Protein Urine Glucose (UA) Urine Ketones Urine Blood Urine Nitrite Urine Bilirubin Urine Urobilinogen Ur Leukocyte Esterase Adenovirus (PCR) B. pertussis DNA (PCR) B.parapertussis DNA PCR C. pneumoniae DNA (PCR) Coronavirus OC43 (PCR) Coronavirus HKU1 (PCR) Coronavirus 229E (PCR) SARS-CoV-2 (PCR) Coronavirus NL63 (PCR) Human Metapneumovir PCR Influenza Type A (PCR) Influenza Type B (PCR) M. pneumoniae (PCR) Parainfluenza 1 (PCR) Parainfluenza 2 (PCR) Parainfluenza 3 (PCR) Parainfluenza 4 (PCR) RSV (PCR) Entero/Rhino (PCR) 07/16/23 07/16/23 07/16/23 14:08 14:38 16:35 WBC RBC Hgb Hct MCV MCH MCHC RDW Std Deviation RDW Coeff of [place] Plt Count MPV Immature Gran % (Auto) Neut % (Auto) Lymph % (Auto) [place] % (Auto) Eos % (Auto) Baso % (Auto) Neut # (Auto) Lymph # (Auto) [place] # (Auto) Eos # (Auto) Baso # (Auto) Immature Gran # (Auto) Sodium Potassium Chloride Carbon Dioxide Anion Gap BUN Creatinine Est Cr Clr Drug Dosing Est GFR ( Amer) Est GFR (Non-Af Amer) BUN/Creatinine Ratio Glucose Lactate 2.2 H* 1.0 Calcium Ionized Calcium Phosphorus Magnesium Total Bilirubin Direct Bilirubin AST ALT Alkaline Phosphatase Total Creatine Kinase Troponin I High Sens Total Protein Albumin Globulin Albumin/Globulin Ratio 25-OH Vitamin D Total 48.4 Procalcitonin PTH Intact Urine Color Urine Appearance Urine pH Ur Specific [place] Urine Protein Urine Glucose (UA) Urine Ketones Urine Blood Urine Nitrite Urine Bilirubin Urine Urobilinogen Ur Leukocyte Esterase Adenovirus (PCR) B. pertussis DNA (PCR) B.parapertussis DNA PCR C. pneumoniae DNA (PCR) Coronavirus OC43 (PCR) Coronavirus HKU1 (PCR) Coronavirus 229E (PCR) SARS-CoV-2 (PCR) Coronavirus NL63 (PCR) Human Metapneumovir PCR Influenza Type A (PCR) Influenza Type B (PCR) M. pneumoniae (PCR) Parainfluenza 1 (PCR) Parainfluenza 2 (PCR) Parainfluenza 3 (PCR) Parainfluenza 4 (PCR) RSV (PCR) Entero/Rhino (PCR) 07/16/23 07/16/23 07/16/23 16:53 17:43 17:44 WBC RBC Hgb Hct MCV MCH MCHC RDW Std Deviation RDW Coeff of [place] Plt Count MPV Immature Gran % (Auto) Neut % (Auto) Lymph % (Auto) [place] % (Auto) Eos % (Auto) Baso % (Auto) Neut # (Auto) Lymph # (Auto) [place] # (Auto) Eos # (Auto) Baso # (Auto) Immature Gran # (Auto) Sodium Potassium Chloride Carbon Dioxide Anion Gap BUN Creatinine Est Cr Clr Drug Dosing Est GFR ( Amer) Est GFR (Non-Af Amer) BUN/Creatinine Ratio Glucose Lactate Calcium Ionized Calcium Phosphorus 3.5 Magnesium Total Bilirubin Direct Bilirubin AST ALT Alkaline Phosphatase Total Creatine Kinase 31 Troponin I High Sens 14.4 H Total Protein Albumin Globulin Albumin/Globulin Ratio 25-OH Vitamin D Total Procalcitonin PTH Intact Urine Color Yellow Urine Appearance Clear Urine pH 8.5 H Ur Specific [place] 1.019 Urine Protein Negative Urine Glucose (UA) Negative Urine Ketones Trace H Urine Blood Negative Urine Nitrite Negative Urine Bilirubin Negative Urine Urobilinogen Negative Ur Leukocyte Esterase Negative Adenovirus (PCR) B. pertussis DNA (PCR) B.parapertussis DNA PCR C. pneumoniae DNA (PCR) Coronavirus OC43 (PCR) Coronavirus HKU1 (PCR) Coronavirus 229E (PCR) SARS-CoV-2 (PCR) Coronavirus NL63 (PCR) Human Metapneumovir PCR Influenza Type A (PCR) Influenza Type B (PCR) M. pneumoniae (PCR) Parainfluenza 1 (PCR) Parainfluenza 2 (PCR) Parainfluenza 3 (PCR) Parainfluenza 4 (PCR) RSV (PCR) Entero/Rhino (PCR) 07/16/23 07/16/23 07/16/23 21:15 21:15 Unknown WBC RBC Hgb Hct MCV MCH MCHC RDW Std Deviation RDW Coeff of [place] Plt Count MPV Immature Gran % (Auto) Neut % (Auto) Lymph % (Auto) [place] % (Auto) Eos % (Auto) Baso % (Auto) Neut # (Auto) Lymph # (Auto) [place] # (Auto) Eos # (Auto) Baso # (Auto) Immature Gran # (Auto) Sodium Potassium Chloride Carbon Dioxide Anion Gap BUN Creatinine Est Cr Clr Drug Dosing Est GFR ( Amer) Est GFR (Non-Af Amer) BUN/Creatinine Ratio Glucose Lactate Calcium Ionized Calcium 1.39 H Phosphorus Magnesium Total Bilirubin Direct Bilirubin AST ALT Alkaline Phosphatase Total Creatine Kinase Troponin I High Sens Total Protein Albumin Globulin Albumin/Globulin Ratio 25-OH Vitamin D Total Procalcitonin PTH Intact 138.8 H Urine Color Urine Appearance Urine pH Ur Specific [place] Urine Protein Urine Glucose (UA) Urine Ketones Urine Blood Urine Nitrite Urine Bilirubin Urine Urobilinogen Ur Leukocyte Esterase Adenovirus (PCR) Not Detected B. pertussis DNA (PCR) Not Detected B.parapertussis DNA PCR Not Detected C. pneumoniae DNA (PCR) Not Detected Coronavirus OC43 (PCR) Not Detected Coronavirus HKU1 (PCR) Not Detected Coronavirus 229E (PCR) Not Detected SARS-CoV-2 (PCR) Not Detected Coronavirus NL63 (PCR) Not Detected Human Metapneumovir PCR Not Detected Influenza Type A (PCR) Not Detected Influenza Type B (PCR) Not Detected M. pneumoniae (PCR) Not Detected Parainfluenza 1 (PCR) Not Detected Parainfluenza 2 (PCR) Not Detected Parainfluenza 3 (PCR) Not Detected Parainfluenza 4 (PCR) Not Detected RSV (PCR) Not Detected Entero/Rhino (PCR) Not Detected 07/17/23 07/17/23 07/17/23 04:45 04:45 15:58 WBC RBC Hgb Hct MCV MCH MCHC RDW Std Deviation RDW Coeff of [place] Plt Count MPV Immature Gran % (Auto) Neut % (Auto) Lymph % (Auto) [place] % (Auto) Eos % (Auto) Baso % (Auto) Neut # (Auto) Lymph # (Auto) [place] # (Auto) Eos # (Auto) Baso # (Auto) Immature Gran # (Auto) Sodium 141 138 Potassium 2.7 L D 4.1 D Chloride 103 103 Carbon Dioxide 29 28 Anion Gap 9 7 BUN 12 19 Creatinine 0.91 1.36 H D Est Cr Clr Drug Dosing 39.6 26.5 Est GFR ( Amer) 69.5 42.8 Est GFR (Non-Af Amer) 60.0 36.9 BUN/Creatinine Ratio 13.2 14.0 Glucose 72 143 H Lactate Calcium 10.8 H 10.6 H Ionized Calcium 1.38 H Phosphorus Magnesium Total Bilirubin Direct Bilirubin AST ALT Alkaline Phosphatase Total Creatine Kinase Troponin I High Sens Total Protein Albumin Globulin Albumin/Globulin Ratio 25-OH Vitamin D Total Procalcitonin PTH Intact Urine Color Urine Appearance Urine pH Ur Specific [place] Urine Protein Urine Glucose (UA) Urine Ketones Urine Blood Urine Nitrite Urine Bilirubin Urine Urobilinogen Ur Leukocyte Esterase Adenovirus (PCR) B. pertussis DNA (PCR) B.parapertussis DNA PCR C. pneumoniae DNA (PCR) Coronavirus OC43 (PCR) Coronavirus HKU1 (PCR) Coronavirus 229E (PCR) SARS-CoV-2 (PCR) Coronavirus NL63 (PCR) Human Metapneumovir PCR Influenza Type A (PCR) Influenza Type B (PCR) M. pneumoniae (PCR) Parainfluenza 1 (PCR) Parainfluenza 2 (PCR) Parainfluenza 3 (PCR) Parainfluenza 4 (PCR) RSV (PCR) Entero/Rhino (PCR) 07/18/23 07/18/23 06:31 06:31 WBC 6.06 RBC 3.29 L Hgb 10.4 L Hct 31.2 L MCV 94.8 MCH 31.6 MCHC 33.3 RDW Std Deviation 52.9 H RDW Coeff of [place] 15.6 H Plt Count 208 MPV 9.0 L Immature Gran % (Auto) Neut % (Auto) Lymph % (Auto) [place] % (Auto) Eos % (Auto) Baso % (Auto) Neut # (Auto) Lymph # (Auto) [place] # (Auto) Eos # (Auto) Baso # (Auto) Immature Gran # (Auto) Sodium 139 Potassium 3.2 L D Chloride 106 Carbon Dioxide 28 Anion Gap 5 BUN 22 Creatinine 1.05 D Est Cr Clr Drug Dosing 34.4 Est GFR ( Amer) 58.5 Est GFR (Non-Af Amer) 50.5 BUN/Creatinine Ratio 21.0 H Glucose 77 Lactate Calcium 10.4 H Ionized Calcium Phosphorus 3.2 Magnesium 1.7 Total Bilirubin 0.5 Direct Bilirubin AST 15 ALT 10 Alkaline Phosphatase 49 Total Creatine Kinase Troponin I High Sens Total Protein 5.8 L Albumin 3.6 Globulin 2.2 L Albumin/Globulin Ratio 1.6 25-OH Vitamin D Total Procalcitonin PTH Intact Urine Color Urine Appearance Urine pH Ur Specific [place] Urine Protein Urine Glucose (UA) Urine Ketones Urine Blood Urine Nitrite Urine Bilirubin Urine Urobilinogen Ur Leukocyte Esterase Adenovirus (PCR) B. pertussis DNA (PCR) B.parapertussis DNA PCR C. pneumoniae DNA (PCR) Coronavirus OC43 (PCR) Coronavirus HKU1 (PCR) Coronavirus 229E (PCR) SARS-CoV-2 (PCR) Coronavirus NL63 (PCR) Human Metapneumovir PCR Influenza Type A (PCR) Influenza Type B (PCR) M. pneumoniae (PCR) Parainfluenza 1 (PCR) Parainfluenza 2 (PCR) Parainfluenza 3 (PCR) Parainfluenza 4 (PCR) RSV (PCR) Entero/Rhino (PCR) 07/16/23 14:09 CT abd pelvis IV con only Stat CT head/brain wo con Stat Hospital Course (1) Primary hyperparathyroidism: (2) Hypercalcemia: Plan Pt is a 77 yo female with a past medical history of HTN, HLD, hx CVA with residual L eye blindness, BRE, depression, RA, GERD, urinary incontinence, and spinal stenosis who presents to the hospital on 07/16/23 for weakness and nausea. Patient found to have hyperparathyroidism with PTH of 138, Ca 10.4, ionized calcium of 1.38. Vitamin D 48.4. Patient with previous high PTH but has never been treated before. During our admission patient was hydrated with Normal saline 1 L then at half maintenance 45 ml/hrs. Sensibal 30 mg was BID. After dehydration symptoms of improved and patient was discharged with Sensibal pres cription. -Patient also refers unintentional weight loss of aprox 30 lbs since September. No underlying malignancy seen on CT abdomen/ Pelvis and CT head. Myeloma work up was ordered during this admission but results has not came back yet. -Hypokalemia were noted at admission. This seem to be chronic. Patient was replaced and corrected during overnight. She was explained to continue her Potassium of 30 mEq daily - Patient referred a fall 1 weeks ago from standing position, hit her head but not seek medical care at that moment. CT head was negative for any acute process. ECHO was performed : EF 60-65%. Grade 1 diastolic dysfunction. -After evaluation of Physical therapy and occupational therapy patient agreed of OPPT at [facility] -Patient was evaluated today found well, in no acute distress, alert and oriented at 3. Denied any SOB, nausea, vomiting, abdominal pain, chest pain, palpitation or any other symptoms. Patient was discharged with instructions of follow up with PCP within a week. All were explained to the patient and daughter. Total Time Total Time Spent Total Time Spent (In Minutes): see attending attestation Discharge Plan Discharge Items Patient Disposition: Home - Self-Care Reason For Visit: WEAKNESS, NAUSEA, S/P FALL 1 WEEK AGO Discharge Diagnosis: Primary hyperparathyroidism Hypercalcemia Activity: Resume your previous activity Non-emergency contact: Primary Care Provider Call non-emergency contact if: you have any medication questions and your symptoms worsen Follow-up/Referrals: Zamzam Stone DO [Primary Care Provider] - 07/25/23 9:30 am Diet: Regular Addtl Attending Provider Instructions: You were in our institution due to nausea and weakness. You were found to have primary hyperparathyroidism, this mean that one or more of your parathyroid gland is overreactive. As a result the gland makes to much parathyroid gland (PTH). Too much PTH causes calcium levels in your blood to rise too high which can lead to health problem as weakness, nausea, vomiting, bone thinning. We start you in a new medication called Sensibar 30 mg PO twice a day. While you were here we hydrated you and replace your potassium. You should continue to take your current potassium dose daily. New medications: - Sensibar 30 mg PO twice a day Continue these medications: Aspirin 81 mg daily Amlodipine 5 mg daily Atorvastatin 20 mg daily Buspirone 10 mg three times a day Vitamin b 12 Denosumab 60 mg Duloxetine 30 mg daily Gabapentin 300 mg twice a day Leflunomide 10 po daily Potassium 30 mEq daily Follow up with your PCP within a week Pending Studies at Discharge: Yes Studies:: Echocardiogram Stand-Alone Forms: My [facility] [place], Smoking Cessation Medications and DC Order Prescriptions: New cinacalcet 30 mg tablet 30 mg PO BID Qty: 60 0RF Continued mometasone 0.1 % solution 1 applic topical DAILY PRN (Reason: skin irritation) Qty: 60 0RF duloxetine 30 mg capsule,delayed release(DR/EC) 30 mg PO QAM Qty: 90 3RF Rx Instructions: replaces escitalopram buspirone 10 mg tablet 10 mg PO TID Qty: 270 3RF amlodipine 5 mg tablet 5 mg PO QAM Qty: 90 3RF pantoprazole 40 mg tablet,delayed release (DR/EC) 40 mg PO QAM Qty: 90 3RF gabapentin 300 mg capsule 300 mg PO BID Qty: 180 3RF atorvastatin 20 mg tablet 20 mg PO QAM Qty: 90 3RF tramadol 50 mg tablet 50 mg PO Q8H PRN (Reason: pain) Qty: 90 0RF sulfasalazine [Azulfidine] 500 mg tablet 1 gm PO QAM Rx Instructions: give with food (meal/snack) loperamide [Anti-Diarrheal (loperamide)] 2 mg tablet 2 mg PO QID PRN (Reason: diarrhea) potassium chloride 10 mEq tablet extended release 30 meq PO DAILY cyanocobalamin (vitamin B-12) 1,000 mcg tablet 1,000 mcg PO QAM Qty: 90 3RF leflunomide 10 mg Tablet 10 mg PO QAM donepezil 10 mg tablet 10 mg PO QAM prednisone 5 mg tablet 5 mg PO QAM aspirin 81 mg tablet,delayed release (DR/EC) 81 mg PO QAM ropinirole 0.25 mg tablet 0.5 - 0.75 mg PO UD Rx Instructions: 2 tab po qam and 3 tab HS PO; baclofen 10 mg tablet 5 - 10 mg PO UD Rx Instructions: 5mg QAM, 10mg HS folic acid 1 mg tablet 3 mg PO QAM denosumab 60 mg/mL syringe 60 mg SQ UD Rx Instructions: 60 mg subcut EVERY 6 MONTHS; Discharge Orders: Discharge Order (Routine); Ordered 07/18/23 Ordered By: Sheri Greenwood Admission Data Admit Date/Time: 07/16/23 19:18 Attending Provider: Giovanna Carmona Admit Provider: Marta Gross Primary Care Provider: Zamzam Stone Other Providers: Annelise Sloan ; Abdirahman Fields Other Interventions: Discharge Summary Assessment (RN) Last Done: 07/18/23 13:35 Supervising Physician Co-Signing Physician Notes Resident Physician Supervision Note: I independently interviewed and examined the patient and verified the pike history and physical, reviewed labs and image studies and agree with resident findings and care plan. Resident Activity Tracking Resident Involvement: Resident Care Provided Care Provided: Adult Hospital Medicine
[2023-07-18] MEDS: SODIUM CHLORIDE 0.9% 500 ML IV SCH (10:55)
--- NOTE | 2023-07-18 13:45 | XCELERA ---
[id number] [id number]
[2023-07-19 10:12] LABS: Albumin 3.5 g/dL (3.8-4.8); Alpha 1 Globulin 0.3 g/dL (0.2-0.3); Alpha 2 Globulin 0.9 g/dL (0.5-0.9); Beta-1-Globulin 0.4 g/dL (0.4-0.6); Beta-2-Globulin 0.4 g/dL (0.2-0.5); Free Kappa 15.7 mg/L (3.3-19.4); Free Kappa/Lambda Ratio 1.12 (0.26-1.65); Gamma Globulin 0.6 g/dL (0.8-1.7); Monoclonal Protein Band 1 DNR g/dL (NONE DETECTED); Monoclonal Protein Band 2 DNR g/dL (NONE DETECTED); Monoclonal Protein Band 3 DNR g/dL (NONE DETECTED)
== END 2023-07-18 14:19 | disposition home or self-care (01) ==
LOC: ED 13:36 → EDINP 13:36 → SUATTDRO 19:18 → 2N 21:40